=== PATIENT | male | born 1955 | race Caucasian/White ===

== ENCOUNTER 2019-08-08 22:33 | Inpatient (IN) | payer MEDICAID, SELFPAY ==
--- NOTE | ~2019-08-08 | CT_ITS ---
EXAMINATION: CT abdomen pelvis w con DATE: 08/09/2019 04:44 INDICATION: Abdominal pain. Possible pancreatitis. TECHNIQUE: Computed tomography (CT) of the abdomen and pelvis was performed with 100 cc Omnipaque 350 intravenous contrast. Automated exposure control and iterative reconstruction technique were employe d. Exam dose: 1118.59 mGy-cm total exam DLP. COMPARISON: None. FINDINGS: Normal heart size. No pericardial or pleural effusion. Moderate sliding hiatal hernia. Diffuse hepatic steatosis. The gallbladder is present. No bile duct dilatation. Normal splenic size. There are pancreatic calcifications. There is peripancreatic stranding and fluid consistent with panc reatitis. Approximately 2 cm cystic lesion at pancreatic tail is likely pancreatic pseudocyst. Normal adrenal glands. Approximately 1.6 cm upper pole left renal cyst. The kidneys are otherwise unr emarkable. No urinary tract calculus or hydroureteronephrosis. The urinary bladder is unremarkable. P rostate enlargement. There is atherosclerotic calcification of the abdominal aorta and branches including renal arteries, especially on the right, as well as iliac arteries, but no abdominal aortic aneurysm. No intraperiton eal or retroperitoneal or pelvic mass lesion or adenopathy or ascites. Normal appendix. No bowel obstruction or intraperitoneal free air. Bilateral fat-containing inguinal hernias. Mild chronic anterior wedge compression fracture deformity at T10. Diffuse idiopathic skeletal hyperostosis of the thoracic and lumbar spine. Moderately severe degenera tive disc disease at L1-2, L4-5 and L5-S1. Degenerative change at the apophyseal joints. Minimal retr olisthesis at L3-4. IMPRESSION: Acute superimposed upon chronic pancreatitis 1.6 cm left renal cyst Prostate enlargement Moderate sliding hiatal hernia 1.6 cm left renal cyst Prostate enlargement Reviewed, dictated and finalized at Location [facility]. Reviewed, dictated and finalized at location A. T LITERACY TEACHER
--- NOTE | ~2019-08-08 | XR_ITS ---
EXAMINATION: XR abdomen/kub 1V DATE: 08/12/2019 15:23 INDICATION: Abdominal pain. Abdominal distention. TECHNIQUE: A supine view of the abdomen was obtained. COMPARISON: CT abdomen and pelvis 08/09/2019 FINDINGS: There are mildly dilated loops of small bowel. There is gaseous distention of the transvers e colon. IMPRESSION: 1. Dilated bowel, consistent with adynamic ileus. Reviewed, dictated and finalized at location A. ERGARTEN TEACHER ASSISTANT
--- NOTE | ~2019-08-08 | XR_ITS ---
XR abdomen obstructive series DATE: 08/10/2019 12:17 INDICATION: Abdominal pain, distention TECHNIQUE: Supine and upright AP views COMPARISON: None FINDINGS: There is no evidence of bowel obstruction or intraperitoneal free air. The psoas shadows ar e intact. No visceromegaly is evident. There is abdominal aortic and bilateral iliac arterial calcification. Multiple bilateral calcified pe lvic phleboliths. Diffuse idiopathic skeletal hyperostosis of the thoracic spine. Multilevel degenerative disease of th e lumbar spine. IMPRESSION: Nonspecific abdomen; no bowel obstruction or free air detected Reviewed, dictated and finalized at [facility]. Reviewed, dictated and finalized at location A. [employer]
--- NOTE | ~2019-08-08 | XR_ITS ---
XR shoulder LT min 2V DATE: 08/09/2019 03:42 INDICATION: Shoulder reduction TECHNIQUE: Portable upright 2 view examination COMPARISON: 08/09/2019 left shoulder FINDINGS: There is reduction of anterior dislocation left shoulder. There is prominent Hill-Sachs def ormity of the left humeral head. Moderate moderate degenerative spurring of the left clavicular joint. Left Port-A-Cath catheter. IMPRESSION: Reduction of anterior glenohumeral joint dislocation; Hill-Sachs deformity of proximal le ft humerus Reviewed, dictated and finalized at location A. T IMPRESSION: Reduction of anterior glenohumeral joint dislocation; Hill-Sachs de formity of proximal left humerus
--- NOTE | ~2019-08-08 | XR_ITS ---
XR shoulder LT min 2V DATE: 08/09/2019 03:13 INDICATION: Left shoulder dislocation TECHNIQUE: Portable 2 view examination COMPARISON: There is a dislocation of the left FINDINGS: . There is normal alignment and moderate moderate spurring at the left acromion clavicular joint. Left Port-A-Cath is noted. IMPRESSION: Anterior glenohumeral joint dislocation Reviewed, dictated and finalized at location A. ATOR OPERATOR
--- NOTE | ~2019-08-08 | US_ITS ---
US venous doppler [facility] DATE: 08/10/2019 09:23 INDICATION: Bilateral lower extremity edema TECHNIQUE: Real-time and color flow imaging and Doppler analysis of the veins of the lower extremitie s COMPARISON: None FINDINGS: The greater saphenous veins are patent. There is spontaneous and phasic flow and normal aug mentation and color flow signal and normal compression of the deep veins of the lower extremities. IMPRESSION: No evidence of deep venous thrombosis of the lower extremities Reviewed, dictated and finalized at Location A. Reviewed, dictated and finalized at location A. OLOGIST ASSISTANT
--- NOTE | ~2019-08-08 | XR_ITS ---
EXAMINATION: XR abdomen/kub 1V DATE: 08/13/2019 13:21 INDICATION: Adynamic ileus. TECHNIQUE: A supine view of the abdomen was obtained. COMPARISON: Abdomen radiograph 08/12/2019 FINDINGS: There are no dilated loops of bowel. There is a paucity of stool in the colon. IMPRESSION: 1. Nonobstructive bowel gas pattern. Reviewed, dictated and finalized at location A. NESS OFFICE TECHNICIAN
--- NOTE | ~2019-08-08 | XR_ITS ---
XR chest 2V DATE: 08/10/2019 12:16 INDICATION: Dyspnea TECHNIQUE: PA and lateral views COMPARISON: 04/04/2010 two-view chest FINDINGS: Left subclavian Port-A-Cath, catheter tip overlying superior vena cava. No pneumothorax. Normal heart size. No hilar or mediastinal enlargement. Mild aortic calcification and unfolding. There is mild right basilar infiltrate or atelectasis, right lower lobe. The lungs are otherwise georges r. There is slight if any pleural effusion. No pneumothorax. Osteophyte is at the glenohumeral joints. Degenerative spurring of the thoracic spine. Old healed fra cture deformity of the right clavicular shaft. IMPRESSION: Minimal right basilar lower lobe atelectasis or infiltrate Left Port-A-Cath Reviewed, dictated and finalized at location A. RER PLUMBING
--- NOTE | ~2019-08-08 | US_ITS ---
US right upper quadrant DATE: 08/10/2019 09:23 INDICATION: Pancreatitis TECHNIQUE: Real-time imaging of liver, pancreas, gallbladder areas COMPARISON: 08/09/2019 CT abdomen pelvis FINDINGS: Hepatic steatosis. No hepatic space-occupying mass lesion is evident. Normal hepatic portal venous flow direction. No gallstones, gallbladder wall thickening or abnormal pericholecystic fluid collection. Negative son ographic Garcia's sign. Common bile duct measures 5 mm, within normal limits. The pancreas is obscured by bowel gas. IMPRESSION: The pancreas is obscured Hepatic steatosis Reviewed, dictated and finalized at Location [facility]. Reviewed, dictated and finalized at location A. OR ABAP DEVELOPER
[2019-08-08 22:54] VITALS: BP 138/65; PULSE 85; RESP 22; TEMP 36.4; O2SAT 100
[2019-08-08 23:02] LABS: Basophils Percent Auto 0.3 % (0.2-1.2); Eosinophils Percent Auto 0.2 % (0-4.4); Hematocrit 48.5 % (42.0-52.0); Hemoglobin 16.7 g/dL (14.0-18.0); Immature Granulocyte Absolute 0.04 K/mm3 (0.00-0.031); Immature Granulocyte Percent A 0.3 % (0-0.5); Lymphocytes Absolute Auto 1.47 K/mm3 (0.9-3.2); Lymphocytes Percent Auto 11.8 % (18.3-44.2); Mean Corpuscular HGB Conc 34.4 g/dl (32-36); Mean Corpuscular Hemoglobin 32.9 pg (26-34); Mean Corpuscular Volume 95.7 fl (80-100); Mean Platelet Volume 10.2 fl (7.4-10.4); Monocytes Absolute Auto 1.1 K/mm3 (0.1-0.6); Monocytes Percent Auto 8.4 % (2.6-8.5); Neutrophils Absolute Auto 9.9 K/mm3 (1.3-6.7); Platelet Count Result 150 k/mm3 (150-375); Red Blood Count 5.07 M/mm3 (4.6-6.20); Red Cell Distribution Width 13.2 % (11.5-14.5); White Blood Count 12.5 K/mm3 (4.5-10.0)
[2019-08-08 23:20] LABS: Alanine Aminotransferase 65 U/L (4-50); Albumin Level 4.7 g/dL (3.5-5.1); Alkaline Phosphatase 49 U/L (38-126); Aspartate Amino Transferase 54 U/L (17-59); Blood Urea Nitrogen 14 mg/dL (9-20); Calcium 9.5 mg/dL (8.4-10.2); Carbon Dioxide 24 mmol/L (22-30); Chloride 98 mmol/L (98-107); Estimated CRCL calculation 111 ml/min; Estimated Glomerular Filt Rate > 60; Glucose 120 mg/dL (75-110); Potassium 4.3 mmol/L (3.4-5.0); Sodium 136 mmol/L (137-145)
[2019-08-08 23:45] LABS: Lipase 7099 U/L (23-300)
[2019-08-09] VITALS (20 sets, daily range): BP systolic 126–164; BP diastolic 79–109; PULSE 83–127; RESP 12–24; TEMP 36.2–37.2; O2SAT 87–99; BMI 31.4
--- NOTE | 2019-08-09 | PC.NURSE ---
pt asked to void. pt states he is unable to void at this time.
--- NOTE | 2019-08-09 00:32 | ED.ABDPAIN ---
HPI - Abdominal Pain General Chief Complaint: Abdominal Pain Stated Complaint: ABD PAIN Time Seen by Provider: 08/09/19 00:37 Source: patient Mode of arrival: ambulatory Limitations: no limitations History of Present Illness HPI narrative: A 63 y/o male presents to the ED with c/o diffuse ABD pain that radiates to his midback. The ABD pain started at 1300 yesterday after he ate 2 hotdogs. Pt reports N/V, cough, CP, and sweats, but denies shoulder pain, fever, dysuria, and jaw pain. He has a PMHx of pancreatitis and adds that it was previously due to alcohol use. Pt has not drank in 2 weeks. MD elicited complaint: abdominal pain (Diffuse) Pertinent past history: other (Pancreatitis) Onset (ago): hour(s) (12) Pain Consistency: constant Location: diffuse Radiation: other (Midback) Associated symptoms: nausea, vomiting and other (Cough, CP, sweats) Related Data Allergies Allergy/AdvReac Type Severity Reaction Status Date / Time codeine Allergy Unknown Vomiting Verified 12/05/18 07:15 iodine Allergy Unknown TOPICAL. Verified 12/05/18 07:15 RASH Penicillins Allergy Unknown Verified 03/12/17 08:15 Review of Systems Review of Systems: Narrative: CONSTITUTIONAL: Denies fever, chills, or sweats. EYES: Denies visual changes, redness, or discharge. ENT: Denies rhinorrhea, congestion, sore throat, or otalgia. CARDIOVASCULAR: Denies palpitations or edema. Reports CP and sweats. RESPIRATORY: Denies dyspnea. Reports cough. GASTROINTESTINAL: Denies diarrhea. Reports diffuse ABD pain that radiates to midback, nausea, and vomiting. GENITOURINARY: Denies dysuria or hematuria. SKIN: Denies rash or itching. MUSCULOSKELETAL: Denies shoulder pain, jaw pain, joint pain, or myalgia. NEUROLOGIC: Denies headache, numbness, or weakness. All systems reviewed & are unremarkable except as noted in HPI and below PMFSH Past Medical History Medical History (Updated 08/09/19 @ 05:08 by Marisel Wolf MD) Arthritis Bronchitis CAD (coronary artery disease) Chronic back pain COPD (chronic obstructive pulmonary disease) DDD (degenerative disc disease) GERD (gastroesophageal reflux disease) History of chemotherapy Hyperlipidemia Leg fracture Lymphoma Neutropenia Pancreatitis Pneumonia Port-A-Cath in place Ulcer Surgical History Surgical History (Updated 08/09/19 @ 00:36 by Viji Ablert) History of bone marrow transplant Family History Family History Other Depression Family history of alcoholism Family history of arthritis Family history of cardiovascular disease Family history of chronic obstructive pulmonary disease Family history of genitourinary disease Family history of hearing loss Family history of hepatitis Family history of lung disease Family history of malignant neoplasm Family history of obesity Hypertension Social History Social History (Updated 08/09/19 @ 00:37 by Viji Albert) Smoking packs per day: 1.5 Smoking cigarettes per day: 30.0 Years smoked: 45 Smoking pack-years: 67.50 Smoking status: Heavy tobacco smoker Second hand tobacco smoke exposure: Yes Alcohol intake: current Exam Narrative: Exam Narrative: GENERAL: Uncomfortable-appearing, well-nourished, and in no acute distress. HEAD: Normocephalic, atraumatic. EYES: PERRLA and EOMI. ENT: Nares clear, no rhinorrhea or epistaxis. Mucous membranes moist. NECK: Supple. CHEST: Coarse breath sounds bilaterally, no tachypnea. No respiratory distress. No chest wall tenderness. HEART: Regular rate and rhythm. No murmur heard. Normal peripheral pulses. ABDOMEN: Soft, epigastric tenderness, nondistended, normal active bowel sounds. EXTREMITIES: Normal range of motion. No edema. SKIN: Warm, dry, no rash. NEURO: No focal deficits. Alert and oriented X3. Procedures Orthopedic Joint Reduction Joint #1: Orthopedic Joint Reduction Date: 08/09/19 Orthopedic Joint Reduction Time:
--- NOTE | 2019-08-09 00:54 | ECG_ITS ---
Measurements Intervals [place] Rate: 71 P: 68 CT: 157 QRS: 35 QRSD: 86 T: 79 QT: 385 QTc: 419 Interpretive Statements SINUS RHYTHM BORDERLINE ST-T WAVE ABNORMALITY- LATERAL LEADS BASELINE ARTIFACT- I, III, AVL BORDERLINE ECG Electronically Signed On 08-09-2019 7:36:26 ULTIMATE HOOPS REFEREE by Baldo Obregon D.O.
[2019-08-09] MEDS: MORPHINE SULFATE 4 MG/ML INJ IV PUSH ×6 (01:00→17:58)
[2019-08-09] MEDS: ONDANSETRON INJ 4 MG/2 ML VIAL IV PUSH ×2 (01:00→22:32)
--- NOTE | 2019-08-09 01:00 | PC.NURSE ---
pt unable to void.
[2019-08-09] MEDS: SODIUM CHLORIDE 0.9% IV 1,000 ML 999 ML IV CONT ×2 (01:01→03:47)
[2019-08-09 01:15] LABS: INR 0.9; Prothrombin Time 11.8 Seconds (11.1-14.7)
[2019-08-09 01:16] LABS: Partial Thromboplastin Time 24.7 SECONDS (22.3-36.8)
[2019-08-09 01:27] LABS: Troponin I < 0.012 ng/mL (0.000-0.034)
--- NOTE | 2019-08-09 02:30 | PC.NURSE ---
Patient giving verbal consent for procedural sedation to reduce left shoulder. Patient unable to sign due to pain, EDP Chuchoels in room when consent was given. No family in room to sign. ED charge nurse Gayla notified.
[2019-08-09] MEDS: MIDAZOLAM HCL 2 MG/2 ML VIAL (02:31)
--- NOTE | 2019-08-09 02:34 | PC.NURSE ---
Patient returned from CT with his left shoulder dislocated. Patient's shoulder dislocated while raising arms above head. Per EDP Luciano verbal order read-back, give patient 1mg Versed IVP and 50mcg Fentanyl IVP to attempt to reduce shoulder. EDP Luciano was unable to reduce shoulder. 1mg Versed and 50mcg Fentanyl wasted at this time.
--- NOTE | 2019-08-09 02:44 | PC.NURSE ---
pt down to ct had arms above his head pt yelled out and electronics technology instructor went to check on pt and pt's L shoulder was out of place. pt was moved to stretcher and returned to rm 6
[2019-08-09 05:00] LABS: Add Urine Microscopic? YES; Appearance Urine Clear (Clear); Bilirubin Urine Negative (Negative); Blood Urine Negative (Negative); Color Urine Yellow (Yellow); Glucose Urine UA Negative (Negative); Ketones Urine 1+ mg/dL (Negative); Leukocyte Esterase Ur Negative LEU/UL (Negative); Mucus Urine Rare /lpf; Nitrate Urine Negative (Negative); Protein Urine Negative (Negative); RBC Urine 0-2 /hpf (0-2); Specific Grav Ur 1.024 (1.001-1.035); Urobilinogen Urine Negative mg/dL (<2.0)
--- NOTE | 2019-08-09 06:00 | ADMGEN ---
This patient, Kwesi Pham, was admitted to Medical Room 346-01. Patient/family oriented to hospital policies and general routines including ID bracelet, bed and alarms, visiting hours, pain management, procedures, bathroom and other care routines, personal items, smoking policy, room service/diet, and visiting hours. Valuables list has been completed. Information on how to activate the Rapid Response Team has been discussed. Patient/Family are encouraged to report perceived risks to care and to ask questions if they do not understand what they are told or what they should do.
[2019-08-09] MEDS: LACTATED RINGERS 1,000 ML 125 ML IV CONT ×2 (06:41→14:31)
[2019-08-09] MEDS: PANTOPRAZOLE SODIUM IV 40 MG VIAL IV PUSH (08:18)
[2019-08-09 08:42] LABS: Troponin I < 0.012 ng/mL (0.000-0.034)
[2019-08-09 10:10] LABS: Cholesterol 267 mg/dL (0-200); HDL Direct 54 mg/dL; Triglycerides 179 mg/dL (<150)
[2019-08-09 10:21] LABS: LDL Cholesterol Direct 214 mg/dL
[2019-08-09 12:18] LABS: Glucose Point of Care 104 (65-105)
[2019-08-09 15:59] LABS: Basophils Percent Auto 0.3 % (0.2-1.2); Eosinophils Absolute Auto 0.2 K/mm3 (0-0.3); Eosinophils Percent Auto 1.6 % (0-4.4); Hematocrit 44.5 % (42.0-52.0); Immature Granulocyte Absolute 0.04 K/mm3 (0.00-0.031); Immature Granulocyte Percent A 0.3 % (0-0.5); Lymphocytes Absolute Auto 1.56 K/mm3 (0.9-3.2); Lymphocytes Percent Auto 11.4 % (18.3-44.2); Mean Corpuscular HGB Conc 33.7 g/dl (32-36); Mean Corpuscular Hemoglobin 32.9 pg (26-34); Mean Corpuscular Volume 97.6 fl (80-100); Monocytes Absolute Auto 0.7 K/mm3 (0.1-0.6); Monocytes Percent Auto 5.4 % (2.6-8.5); Neutrophils Absolute Auto 11.1 K/mm3 (1.3-6.7); Red Blood Count 4.56 M/mm3 (4.6-6.20); Red Cell Distribution Width 13.8 % (11.5-14.5); White Blood Count 13.7 K/mm3 (4.5-10.0)
[2019-08-09 16:05] LABS: Hemoglobin A1C 5.7 % (<5.7)
[2019-08-09 16:08] LABS: Magnesium 2.2 mg/dL (1.6-2.3)
[2019-08-09 16:09] LABS: Alanine Aminotransferase 43 U/L (4-50); Albumin Level 3.6 g/dL (3.5-5.1); Alkaline Phosphatase 37 U/L (38-126); Aspartate Amino Transferase 35 U/L (17-59); Bilirubin,Total 0.7 mg/dL (0.2-1.3); Blood Urea Nitrogen 12 mg/dL (9-20); Calcium 8.1 mg/dL (8.4-10.2); Carbon Dioxide 23 mmol/L (22-30); Chloride 103 mmol/L (98-107); Estimated CRCL calculation 98 ml/min; Estimated Glomerular Filt Rate > 60; Glucose 94 mg/dL (75-110); Potassium 4.1 mmol/L (3.4-5.0); Sodium 136 mmol/L (137-145)
[2019-08-09 17:58] LABS: Glucose Point of Care 97 (65-105)
--- NOTE | 2019-08-09 18:03 | PM.IMHP ---
H&P: HPI History of Present Illness Chief complaint: Pancreatitis <Cecilia Hooker PA-C - Last Filed: 08/09/19 18:40> Narrative: Kwesi Pham is a 63 year old male with past medical history significant for COPD, Hodgkin's lymphoma s/p bone marrow transplant on Gamunex infusion q6 weeks, hyperlipidemia, coronary artery disease, gastroesophageal reflux disease, current 1.5-2PPD smoker, and history of alcoholism complicated by pancreatitis 5 years ago who presented to the emergency department with a chief complaint of diffuse abdominal pain radiating to the mid back. He reports that he has not consumed any alcohol for approximately 1 month. He endorses a history of anorexia for 3 days. He did not eat much and reports that on Sunday, he ate 2 hot dogs as well as candy. Soon after eating, he reports that he vomited 4 times. He denies fever, chills, and SOB. He endorses diarrhea. He denies prior history of gallbladder disease. He denies prior abdominal pain before this acute episode. Upon presentation to the emergency department, temperature was 97.6? F, blood pressure was 138/65, heart rate was 85, respiratory rate was 22, and oxygen saturation was 100. Initial workup revealed lipase of 7,099, AST of 54, elevated ALT of 65, bilirubin of 1.0, and calcium of 9.5. EKG was performed and showed no acute ischemic changes. Serial troponins were unremarkable. CT abdomen and pelvis with contrast was performed and revealed moderate sliding hiatal hernia, hepatic steatosis, gallbladder without bile duct dilatation, pancreatic calcifications and peripancreatic stranding and fluid consistent with pancreatitis, 2 cm cystic lesion at the pancreatic tail representing a pancreatic pseudocyst, 1.6 cm left renal cyst, prostate enlargement inguinal hernias bilaterally, and degenerative disc disease. While in the CT scanner, the patient lifted his left arm and dislocated his left shoulder posteriorly. He has a history of 7 prior left shoulder dislocation and 2 rotator cuff surgeries. His shoulder was reduced while under sedation in the ED with post-reduction films showing good reduction. His initial workup is consistent with acute on chronic pancreatitis. he received 2 L of normal saline fluid bolus in the emergency department. He was admitted to the hospitalist service for IV fluid hydration, IV anti emetics, and IV analgesics. <Cecilia Hooker PA-C - Last Filed: 08/09/19 18:40> Review of Systems Constitutional: Constitutional: Reports anorexia, Denies body ache(s), Denies chills, Denies fatigue and Denies fever(s) <LEIA Bar Last Filed: 08/09/19 18:40> Eyes: Eyes: Denies no additional eye complaints and Denies change in vision <LEIA Bar Last Filed: 08/09/19 18:40> ENT: Reports Normal hearing present, Denies dysphagia, Denies hoarseness, Denies odynophagia and Denies sore throat <LEIA Bar Last Filed: 08/09/19 18:40> Cardiovascular: Comments: The patient endorses a history of chest pain with activity for several years. He reports episodes of chest pain occur 2-3 times per week. He endorses that he has not told his PCP about this. He describes the pain as heavy. He does not complain of active chest pain at this time. He reports that his last stress test was several years ago. He denies any previous hx of OK or coronary artery stenting. He endorses that he did not know he had a history of coronary artery disease. He previously attributed the pain to a pleuritic source due to his coughing from COPD. <LEIA Bar Last Filed: 08/09/19 18:40> Respiratory: Respiratory: Reports cough, Denies dyspnea and Denies wheezing <LEIA Bar Last Filed: 08/09/19 18:40> Gastrointestinal: Gastrointestinal: Reports abdominal pain (Diffuse, chaitanya umbilical and epigastric which radiates into the back), Denies melena, Reports bloating, Denies hematochezia and Reports diarrhea <Cecilia Joy
--- NOTE | 2019-08-09 18:56 | PM.IMHP ---
H&P: HPI History of Present Illness Chief complaint: Pancreatitis <Cecilia Hooker PA-C - Last Filed: 08/09/19 22:04> Narrative: Kwesi Pham is a 63 year old male with past medical history significant for COPD, Hodgkin's lymphoma s/p bone marrow transplant on Gamunex infusion q6 weeks, hyperlipidemia, coronary artery disease, gastroesophageal reflux disease, current 1.5-2PPD smoker, and history of alcoholism complicated by pancreatitis 5 years ago who presented to the emergency department with a chief complaint of diffuse abdominal pain radiating to the mid back. He reports that he has not consumed any alcohol for approximately 1 month. He endorses a history of anorexia for 3 days. He did not eat much and reports that on Sunday, he ate 2 hot dogs as well as candy. Soon after eating, he reports that he vomited 4 times. He denies fever, chills, and SOB. He endorses diarrhea. He denies prior history of gallbladder disease. He denies prior abdominal pain before this acute episode. Upon presentation to the emergency department, temperature was 97.6? F, blood pressure was 138/65, heart rate was 85, respiratory rate was 22, and oxygen saturation was 100. Initial workup revealed lipase of 7,099, AST of 54, elevated ALT of 65, bilirubin of 1.0, and calcium of 9.5. EKG was performed and showed no acute ischemic changes. Serial troponins were unremarkable. CT abdomen and pelvis with contrast was performed and revealed moderate sliding hiatal hernia, hepatic steatosis, gallbladder without bile duct dilatation, pancreatic calcifications and peripancreatic stranding and fluid consistent with pancreatitis, 2 cm cystic lesion at the pancreatic tail representing a pancreatic pseudocyst, 1.6 cm left renal cyst, prostate enlargement inguinal hernias bilaterally, and degenerative disc disease. While in the CT scanner, the patient lifted his left arm and dislocated his left shoulder posteriorly. He has a history of 7 prior left shoulder dislocation and 2 rotator cuff surgeries. His shoulder was reduced while under sedation in the ED with post-reduction films showing good reduction. His initial workup is consistent with acute on chronic pancreatitis. he received 2 L of normal saline fluid bolus in the emergency department. He was admitted to the hospitalist service for IV fluid hydration, IV anti emetics, and IV analgesics. <Cecilia Hooker PA-C - Last Filed: 08/09/19 22:04> Review of Systems Constitutional: Constitutional: Reports anorexia, Denies body ache(s), Denies chills, Denies fatigue and Denies fever(s) <Cecilia Hooker PA-C - Last Filed: 08/09/19 22:04> Eyes: Eyes: Denies no additional eye complaints and Denies change in vision <Cecilia Hooker PA-C - Last Filed: 08/09/19 22:04> ENT: Reports Normal hearing present, Denies dysphagia, Denies hoarseness, Denies odynophagia and Denies sore throat <Cecilia Hooker PA-C - Last Filed: 08/09/19 22:04> Cardiovascular: Cardiovascular: Reports chest pain with activity (2-3x per week, no pain currrently ), Denies dyspnea and Reports other (He also complains of orthopnea, paroxysmal nocturnal dyspnea, and LE edema) <Cecilia Hooker PA-C - Last Filed: 08/09/19 22:04> Comments: Comments: The patient endorses a history of chest pain with activity for several years. He reports episodes of chest pain occur 2-3 times per week. He endorses that he has not told his PCP about this. He describes the pain as heavy. He does not complain of active chest pain at this time. He reports that his last stress test was several years ago. He denies any previous hx of OK or coronary artery stenting. He endorses that he did not know he had a history of coronary artery disease. He previously attributed the pain to a pleuritic source due to his coughing from COPD. <Cecilia Hooker PA-C - Last Filed: 08/09/19 22:04> Respiratory: Respiratory: Reports cough, Denies dyspnea and Denies wheezing <Cecilia Espinoza
[2019-08-10] MEDS: LACTATED RINGERS 1,000 ML 85 ML IV CONT ×2 (00:38→13:00)
[2019-08-10 01:35] LABS: Glucose Point of Care 79 (65-105)
[2019-08-10 04:00] VITALS: BP 119/79; PULSE 81; RESP 14; TEMP 36.3; O2SAT 94
[2019-08-10] MEDS: MORPHINE SULFATE 4 MG/ML INJ IV PUSH ×6 (05:09→22:34)
--- NOTE | 2019-08-10 06:00 | ECG_ITS ---
Measurements Intervals [place] Rate: 94 P: 55 AR: 148 QRS: 20 QRSD: 80 T: 68 QT: 350 QTc: 438 Interpretive Statements SINUS RHYTHM BORDERLINE ST-T WAVE ABNORMALITY- LATERAL LEADS BORDERLINE ECG Electronically Signed On 08-10-2019 8:16:13 YARD ASSOCIATE by Baldo Obregon D.O.
[2019-08-10 06:14] LABS: Basophils Percent Auto 0.3 % (0.2-1.2); Eosinophils Absolute Auto 0.4 K/mm3 (0-0.3); Eosinophils Percent Auto 3.3 % (0-4.4); Hematocrit 43.4 % (42.0-52.0); Hemoglobin 14.2 g/dL (14.0-18.0); Immature Granulocyte Absolute 0.04 K/mm3 (0.00-0.031); Immature Granulocyte Percent A 0.3 % (0-0.5); Lymphocytes Absolute Auto 1.59 K/mm3 (0.9-3.2); Lymphocytes Percent Auto 12.3 % (18.3-44.2); Mean Corpuscular HGB Conc 32.7 g/dl (32-36); Mean Corpuscular Hemoglobin 32.7 pg (26-34); Mean Platelet Volume 10.8 fl (7.4-10.4); Monocytes Absolute Auto 0.8 K/mm3 (0.1-0.6); Monocytes Percent Auto 5.9 % (2.6-8.5); Neutrophils Absolute Auto 10.1 K/mm3 (1.3-6.7); Neutrophils Percent Auto 77.9 % (45.5-73.1); Platelet Count Result 113 k/mm3 (150-375); Red Blood Count 4.34 M/mm3 (4.6-6.20); Red Cell Distribution Width 13.9 % (11.5-14.5); White Blood Count 12.9 K/mm3 (4.5-10.0)
[2019-08-10 06:55] LABS: Hepatitis B Surface Antigen Negative (Negative)
[2019-08-10 07:03] LABS: Glucose Point of Care 81 (65-105)
[2019-08-10 07:16] LABS: Hepatitis B Surface Anti Res Positive; Hepatitis C Virus Antibody Negative (Negative)
[2019-08-10 08:05] LABS: Glucose Point of Care 82 (65-105)
[2019-08-10 08:06] VITALS: PULSE 84; RESP 14; O2SAT 94
[2019-08-10] MEDS: ENOXAPARIN 40 MG/0.4 ML SYRINGE SUB-Q (08:06)
[2019-08-10] MEDS: NEOMYCIN/POLYMYXIN/BACITRACIN OINTMENT 15 GM TUBE 1 APPLIC TOPICAL (08:08)
[2019-08-10] MEDS: PANTOPRAZOLE SODIUM IV 40 MG VIAL IV PUSH (08:08)
[2019-08-10 08:59] LABS: Alanine Aminotransferase 34 U/L (4-50); Albumin Level 3.3 g/dL (3.5-5.1); Alkaline Phosphatase 36 U/L (38-126); Aspartate Amino Transferase 33 U/L (17-59); Bilirubin,Total 0.7 mg/dL (0.2-1.3); Blood Urea Nitrogen 12 mg/dL (9-20); CRP 1.4 mg/dL (<1.0); Calcium 7.8 mg/dL (8.4-10.2); Carbon Dioxide 23 mmol/L (22-30); Chloride 102 mmol/L (98-107); Estimated CRCL calculation 98 ml/min; Estimated Glomerular Filt Rate > 60; Glucose 77 mg/dL (75-110); Lipase 1180 U/L (23-300); Potassium 4.1 mmol/L (3.4-5.0); Sodium 136 mmol/L (137-145)
--- NOTE | 2019-08-10 11:38 | ECG_ITS ---
Measurements Intervals [place] Rate: 82 P: 58 [place]: 150 QRS: 28 QRSD: 86 T: 75 QT: 359 QTc: 421 Interpretive Statements SINUS RHYTHM NORMAL ECG Electronically Signed On 08-10-2019 16:36:04 LINEN CHECKER by Baldo Obregon D.O.
[2019-08-10 12:29] LABS: Troponin I < 0.012 ng/mL (0.000-0.034)
[2019-08-10 13:06] LABS: Glucose Point of Care 76 (65-105)
--- NOTE | 2019-08-10 13:25 | PM.IMPN ---
Progress Note: A&P Assessment and Plan (1) Acute pancreatitis: Qualifiers: Acute pancreatitis complication: no infection or necrosis Pancreatitis type: idiopathic Qualified Code(s): K85.00 - Idiopathic acute pancreatitis without necrosis or infection <Cecilia Hooker PA-C - Last Filed: 08/10/19 14:57> Code(s): K85.90 - Acute pancreatitis without necrosis or infection, unspecified <Cecilia Hooker PA-C - Last Filed: 08/10/19 14:57> Status: Acute <Cecilia Hooker PA-C - Last Filed: 08/10/19 14:57> Assessment and Plan: Etiology is unknown. Likely acute on chronic pancreatitis due to prior hx of pancreatitis 5 years ago (during period of heavy alcohol use - pt endorses 1 fifth) and presence of pancreatic pseudocyst.There was no evidence of hypertriglyceridemia. Ca was WNL at admission. US RUQ negative for gallstones, gallbladder wall thickening, and pericholecystic fluid collection. Common bile duct is WNL. Pt has a very poor diet including hamburgers and hot dogs recently so it is still possible that he passed a gallstone. Lipase is trending down and is 1180 today (7099 at admit). The pt's epigastric/periumbilical pain has improved minimally but he now c/o lower abdominal pain. He is very distended and denies flatus, belching, and BM. -Continue NPO. Monitor blood sugar Q4HR since pt is NPO. -Continue fluid replacement. Reassess fluid requirements. -Continue IV morphine for pain control I discussed the importance of continued alcohol abstinence and encouraged the patient. <Cecilia Hooker PA-C - Last Filed: 08/10/19 14:57> (2) Dislocation of shoulder: Qualifiers: Encounter type: initial encounter Laterality: left Qualified Code(s): S43.005A - Unspecified dislocation of left shoulder joint, initial encounter <Cecilia Hooker PA-C - Last Filed: 08/10/19 14:57> Code(s): S43.006A - Unspecified dislocation of unspecified shoulder joint, initial encounter <Cecilia Hooker PA-C - Last Filed: 08/10/19 14:57> Status: Acute <Cecilia Krystle Hooker PA-C - Last Filed: 08/10/19 14:57> Assessment and Plan: The patient is status post reduction of his left shoulder. Follow-up imaging after reduction showed appropriate positioning of the anterior glenohumeral joint. He was noted to have a Hill-Sachs deformity of the prominent left humerus. Neurovascular status is intact to the left hand. -Follow-up with orthopedic surgery outpatient -Maintain adequate pain control <Cecilia Hooker PA-C - Last Filed: 08/10/19 14:57> (3) Lymphoma: Code(s): C85.90 - Non-Hodgkin lymphoma, unspecified, unspecified site <Cecilia Hooker PA-C - Last Filed: 08/10/19 14:57> Status: Acute <Cecilia Hooker PA-C - Last Filed: 08/10/19 14:57> Assessment and Plan: The patient reports a history of Hodgkin's lymphoma. He is status post bone marrow transplant. He is currently receiving Gamunex every 6 weeks. He follows with oncology regularly. He was last seen by Dr. Torres in 2019. -Continue scheduled follow-up with oncology <Cecilia Hooker PA-C - Last Filed: 08/10/19 14:57> (4) Hyperlipidemia: Code(s): E78.5 - Hyperlipidemia, unspecified <Cecilia Hooker PA-C - Last Filed: 08/10/19 14:57> Status: Acute <Cecilia Hooker PA-C - Last Filed: 08/10/19 14:57> Assessment and Plan: The patient self elected to discontinue his atorvastatin this July. His LDL is elevated at 214. His triglycerides are slightly elevated at 179 but it is unlikely that this elevation is directly responsible for his current episode of acute pancreatitis. ALT was slightly elevated at 65. Due to his atherosclerotic vascular disease and continued risk factors including tobacco use, he will benefit from a statin once his acute episode of pancreatitis has resolved. -Pt
[2019-08-10] MEDS: BISACODYL 10 MG SUPPOSITORY RECTAL (13:56)
[2019-08-10 14:00] VITALS: BP 116/74; PULSE 80; PULSE 83; RESP 16; RESP 20; TEMP 36.7; O2SAT 100
[2019-08-10] MEDS: ALBUTEROL SULFATE NEB 2.5 MG/0.5 ML INH INHALATION (14:03)
[2019-08-10] MEDS: IPRATROPIUM BR 0.02% INH SOLN 0.5 MG/2.5 ML VIAL INHALATION (14:03)
[2019-08-10 14:10] VITALS: PULSE 85; RESP 20
[2019-08-10 16:56] LABS: Glucose Point of Care 72 (65-105)
[2019-08-10 18:06] LABS: Glucose Point of Care 88 (65-105)
[2019-08-10 20:00] VITALS: BP 125/82; PULSE 88; RESP 18; TEMP 36.8; O2SAT 95
[2019-08-10 22:41] LABS: Glucose Point of Care 81 (65-105)
[2019-08-11] VITALS: BP 117/67; PULSE 76; RESP 16; TEMP 36.6; O2SAT 94
--- NOTE | 2019-08-11 | ECHO_ITS ---
Patient Info Name: Kwesi Pham Age: 63 years : 1955 Gender: Male Ht: 66 in Wt: 195 lbs BSA: 2.06 m2 HR: 71 bpm BP: 110 / 71 mmHg Heart Rhythm: Sinus Rhythm Technical Quality: Good Exam Date: 08/11/2019 10:30 AM Exam Location: [facility] Exam Room: [facility] Patient Status: Inpatient Admit Date: 08/09/2019 Staff Ordering Physician: Cecilia Hooker PA-C Field Care Manager: Abigail Chaves RDCS Attending Provider: Berhane Arnold MD Referring Physician: Nhung RONQUILLO; Exam Type: CA echo doppler color flow Study Info Indications - orthopnea garcia edema Complete two-dimensional, color flow and Doppler transthoracic echocardiogram is performed. Summary 1. Left ventricular systolic function is normal, estimated at 65-70%. 2. There is no increased left ventricular wall thickness. 3. The left ventricular diastolic function is grade I diastolic dysfunction. 4. There is no aortic valve stenosis. 5. There is trace mitral valve regurgitation. 6. The mitral valve annulus is mildly calcified. 7. There is mild tricuspid valve regurgitation. 8. Pulmonary pressures upper limits of normal with estimated pulmonary arterial systolic pressure of 35 mmHg. Left Ventricle Left ventricular chamber dimension is normal. Left ventricular systolic function is normal, estimated at 65-70%. There is no increased left ventricular wall thickness. The left ventricular diastolic function is grade I diastolic dysfunction. Right Ventricle Right ventricular chamber dimension is normal. Right ventricular systolic function is normal. Left Atria Left atrial chamber dimension is normal. Right Atria Right atrial chamber dimension is normal. Aortic Valve The aortic valve is not well visualized. There is mild aortic valve sclerosis. There is no aortic valve stenosis. There is no aortic valve regurgitation. Pulmonic Valve The pulmonic valve is not well visualized. Mitral Valve The mitral valve has normal leaflets. There is trace mitral valve regurgitation. The mitral valve annulus is mildly calcified. Tricuspid Valve The tricuspid valve leaflets are normal. There is mild tricuspid valve regurgitation. Pulmonary pressures upper limits of normal with estimated pulmonary arterial systolic pressure of 35 mmHg. Pericardium/Pleural The pericardium appears normal. There is no pericardial effusion. Inferior Vena Cava Normal inferior vena cava with >50% collapse upon inspiration consistent with normal right atrial pressure, 5 mmHg. Aorta The aortic root size at the sinus of Valsalva is normal. There is mild aortic atherosclerosis. Left Ventricular Outflow Tract Name Value Normal LVOT 2D LVOT Diameter 2.0 cm LVOT Doppler LVOT Peak Gradient 7 mmHg LVOT Mean Gradient 4 mmHg LVOT VTI 23 cm LVOT VTI/AV VTI Ratio 0.8 LVOT Stroke Volume 73 ml LVOT CO 15.9 l/min LVOT CI 7.7 l/m
[2019-08-11 00:07] LABS: Glucose Point of Care 77 (65-105)
[2019-08-11] MEDS: LACTATED RINGERS 1,000 ML 85 ML IV CONT (00:09)
[2019-08-11] MEDS: MORPHINE SULFATE 4 MG/ML INJ IV PUSH ×7 (02:14→23:35)
[2019-08-11 04:00] VITALS: BP 110/71; PULSE 71; RESP 16; TEMP 36.6; O2SAT 94
[2019-08-11 04:21] LABS: Glucose Point of Care 84 (65-105)
[2019-08-11 05:21] LABS: Basophils Percent Auto 0.3 % (0.2-1.2); Eosinophils Absolute Auto 0.5 K/mm3 (0-0.3); Hematocrit 38.5 % (42.0-52.0); Immature Granulocyte Absolute 0.06 K/mm3 (0.00-0.031); Immature Granulocyte Percent A 0.5 % (0-0.5); Immature Platelet Fraction Pct 4.3 % (0.9-11.2); Lymphocytes Absolute Auto 1.57 K/mm3 (0.9-3.2); Lymphocytes Percent Auto 13.5 % (18.3-44.2); Mean Corpuscular HGB Conc 33.8 g/dl (32-36); Mean Corpuscular Hemoglobin 33.4 pg (26-34); Mean Platelet Volume 10.3 fl (7.4-10.4); Monocytes Percent Auto 8.5 % (2.6-8.5); Neutrophils Absolute Auto 8.5 K/mm3 (1.3-6.7); Neutrophils Percent Auto 73.2 % (45.5-73.1); Platelet Count Result 105 k/mm3 (150-375); Red Blood Count 3.89 M/mm3 (4.6-6.20); White Blood Count 11.7 K/mm3 (4.5-10.0)
[2019-08-11 05:43] LABS: Lipase 392 U/L (23-300)
[2019-08-11 05:44] LABS: Alanine Aminotransferase 26 U/L (4-50); Albumin Level 3.2 g/dL (3.5-5.1); Alkaline Phosphatase 31 U/L (38-126); Aspartate Amino Transferase 30 U/L (17-59); Bilirubin,Total 0.8 mg/dL (0.2-1.3); Blood Urea Nitrogen 11 mg/dL (9-20); Calcium 7.8 mg/dL (8.4-10.2); Carbon Dioxide 27 mmol/L (22-30); Chloride 102 mmol/L (98-107); Estimated CRCL calculation 98 ml/min; Estimated Glomerular Filt Rate > 60; Glucose 77 mg/dL (75-110); Potassium 3.9 mmol/L (3.4-5.0); Sodium 137 mmol/L (137-145)
[2019-08-11] MEDS: PANTOPRAZOLE SODIUM IV 40 MG VIAL IV PUSH (08:26)
[2019-08-11] MEDS: NEOMYCIN/POLYMYXIN/BACITRACIN OINTMENT 15 GM TUBE 1 APPLIC TOPICAL (08:33)
[2019-08-11] MEDS: BISACODYL 10 MG SUPPOSITORY RECTAL (08:33)
[2019-08-11] MEDS: ENOXAPARIN 40 MG/0.4 ML SYRINGE SUB-Q (08:33)
[2019-08-11 08:43] LABS: Glucose Point of Care 83 (65-105)
[2019-08-11 12:00] VITALS: BP 112/62; PULSE 68; RESP 18; TEMP 36.9; O2SAT 98
[2019-08-11 12:26] LABS: Glucose Point of Care 82 (65-105)
--- NOTE | 2019-08-11 12:59 | PM.IMPN ---
Progress Note: A&P Assessment and Plan (1) Acute pancreatitis: Qualifiers: Acute pancreatitis complication: no infection or necrosis Pancreatitis type: idiopathic Qualified Code(s): K85.00 - Idiopathic acute pancreatitis without necrosis or infection Code(s): K85.90 - Acute pancreatitis without necrosis or infection, unspecified Status: Acute Assessment and Plan: Etiology unclear but likely acute on chronic pancreatitis due to prior hx of pancreatitis and presence of pancreatic pseudocyst. TG level 179 but not related to the pancreatitis. RUQ US negative for gallstones, gallbladder wall thickening, and pericholecystic fluid collection. Common bile duct is WNL. Pt has a very poor diet including hamburgers and hot dogs recently so it is still possible that he passed a gallstone. Lipase 7100 on admission but trending down to 392 today. Patient hungry so will start full liquid diet and advance as he tolerates. (2) Ileus: Code(s): K56.7 - Ileus, unspecified Status: Acute Assessment and Plan: Pt exhibits increased abdominal distention. NGT attempted but unsuccessful. Suppository with +BMs. Passing faltus. He has been encouraged multiple times to be up waling in the alfonso. Contineu to monitor. (3) Dislocation of shoulder: Qualifiers: Encounter type: initial encounter Laterality: left Qualified Code(s): S43.005A - Unspecified dislocation of left shoulder joint, initial encounter Code(s): S43.006A - Unspecified dislocation of unspecified shoulder joint, initial encounter Status: Acute Assessment and Plan: Patient developed a nontraumatic Hill-Sachs deformity of the prominent left humerus when in the CT scanner. The patient is status post reduction of his left shoulder. Follow-up imaging after reduction showed appropriate positioning of the anterior glenohumeral joint. He remains neurovascular status is intact to the left hand. Follow-up with orthopedic surgery outpatient (4) Lymphoma: Code(s): C85.90 - Non-Hodgkin lymphoma, unspecified, unspecified site Status: Acute Assessment and Plan: The patient has a history of Hodgkin's lymphoma s/p autologous BMT. He takes Gamunex every 6 weeks and follows with oncology regularly. He was last seen by Dr. Torres in 2019. Follow-up with oncology. (5) Hyperlipidemia: Code(s): E78.5 - Hyperlipidemia, unspecified Status: Acute Assessment and Plan: The patient self elected to discontinue his atorvastatin this July. His LDL is elevated at 214. His triglycerides are slightly elevated at 179 but it is unlikely that this elevation is directly responsible for his current episode of acute pancreatitis. ALT was slightly elevated at 65. Due to his atherosclerotic vascular disease and continued risk factors including tobacco use, he will benefit from a statin once his acute episode of pancreatitis has resolved. Will see how he does with oral intake. If okay, then resume statin tomorrow. (6) GERD (gastroesophageal reflux disease): Code(s): K21.9 - Gastro-esophageal reflux disease without esophagitis Status: Acute Assessment and Plan: Stable. Contnue PPI. (7) COPD (chronic obstructive pulmonary disease): Code(s): J44.9 - Chronic obstructive pulmonary disease, unspecified Status: Acute Assessment and Plan: Not in acute exacerbation but has chronic cough. CXR was performed due to cough and mild dyspnea and shows mild right lobe airspace disease due to atelectasis since he has been taking very shallow breaths due to his abdominal discomfort. Still having some wheezing. Continue PRN albuterol. He is compliant with using the IS. (8) CAD (coronary artery disease): Code(s): I25.10 - Atherosclerotic heart disease of [place] coronary artery without angina pectoris Status: Acute Assessment and Plan
[2019-08-11 14:00] VITALS: BP 118/72; PULSE 91; RESP 16; TEMP 36.6; O2SAT 98
[2019-08-11 16:00] VITALS: BP 126/62; PULSE 68; RESP 16; TEMP 36.8; O2SAT 97
[2019-08-11 20:40] VITALS: BP 127/87; PULSE 94; RESP 16; TEMP 36.6; O2SAT 96
[2019-08-11] MEDS: ONDANSETRON INJ 4 MG/2 ML VIAL IV PUSH (20:42)
[2019-08-12] MEDS: MORPHINE SULFATE 4 MG/ML INJ IV PUSH ×7 (02:45→20:12)
[2019-08-12 04:00] VITALS: BP 137/81; PULSE 87; RESP 15; TEMP 36.3; O2SAT 92
[2019-08-12 06:07] LABS: Hematocrit 40.9 % (42.0-52.0); Hemoglobin 13.8 g/dL (14.0-18.0); Immature Platelet Fraction Pct 5.8 % (0.9-11.2); Mean Corpuscular HGB Conc 33.7 g/dl (32-36); Mean Corpuscular Hemoglobin 33.3 pg (26-34); Mean Corpuscular Volume 98.8 fl (80-100); Mean Platelet Volume 10.6 fl (7.4-10.4); Platelet Count Result 103 k/mm3 (150-375); Red Blood Count 4.14 M/mm3 (4.6-6.20); Red Cell Distribution Width 13.8 % (11.5-14.5)
[2019-08-12 06:27] LABS: Blood Urea Nitrogen 9 mg/dL (9-20); Calcium 8.3 mg/dL (8.4-10.2); Carbon Dioxide 24 mmol/L (22-30); Chloride 99 mmol/L (98-107); Estimated CRCL calculation 98 ml/min; Estimated Glomerular Filt Rate > 60; Glucose 93 mg/dL (75-110); Lipase 136 U/L (23-300); Potassium 3.8 mmol/L (3.4-5.0); Sodium 137 mmol/L (137-145)
[2019-08-12] MEDS: ENOXAPARIN 40 MG/0.4 ML SYRINGE SUB-Q (08:36)
[2019-08-12] MEDS: BISACODYL 10 MG SUPPOSITORY RECTAL (08:36)
[2019-08-12] MEDS: PANTOPRAZOLE SODIUM IV 40 MG VIAL IV PUSH (08:36)
[2019-08-12] MEDS: NEOMYCIN/POLYMYXIN/BACITRACIN OINTMENT 15 GM TUBE 1 APPLIC TOPICAL (08:36)
[2019-08-12 12:58] VITALS: BP 119/71; PULSE 80; RESP 18; TEMP 36.9; O2SAT 93
--- NOTE | 2019-08-12 15:05 | PM.IMPN ---
Progress Note: A&P Assessment and Plan (1) Acute pancreatitis: Qualifiers: Acute pancreatitis complication: no infection or necrosis Pancreatitis type: idiopathic Qualified Code(s): K85.00 - Idiopathic acute pancreatitis without necrosis or infection Code(s): K85.90 - Acute pancreatitis without necrosis or infection, unspecified Status: Acute Assessment and Plan: The CT abdomen/pelvis on admission with acute on chronic pancreatitis. RUQ ultrasound with hepatic steatosis. LFTs have now normalized. Lipase is now normal at 136. Triglycerides 179. Will leave patient on full liquids today as he is still having pain from ileus. Will try to limit narcotic use. (2) Pancreatic pseudocyst: Code(s): K86.3 - Pseudocyst of pancreas Status: Acute Assessment and Plan: A 2cm pancreatic pseudocyst was identified at the tail of the pancreas. Probably related to his prior episode of chronic pancreatitis and likely a chronic finding. Treatment of acute on chronic pancreatitis as noted above. (3) Ileus: Code(s): K56.7 - Ileus, unspecified Status: Acute Assessment and Plan: Increased abdominal distention today. Repeat KUB consistent with ileus. Has been on suppositories without relief. Soapsuds enema given without much results. Will spread out IV morphine as may be contributing. Will continue to monitor. Ambulation encouraged. (4) Dislocation of shoulder: Qualifiers: Encounter type: initial encounter Laterality: left Qualified Code(s): S43.005A - Unspecified dislocation of left shoulder joint, initial encounter Code(s): S43.006A - Unspecified dislocation of unspecified shoulder joint, initial encounter Status: Acute Assessment and Plan: Patient developed a nontraumatic Hill-Sachs deformity of the prominent left humerus when in the CT scanner. The patient is status post reduction of his left shoulder. Follow-up imaging after reduction showed appropriate positioning of the anterior glenohumeral joint. Stable at this point. Can follow-up with orthopedic surgery as an outpatient. (5) GERD (gastroesophageal reflux disease): Qualifiers: Esophagitis presence: esophagitis presence not specified Qualified Code(s): K21.9 - Gastro-esophageal reflux disease without esophagitis Code(s): K21.9 - Gastro-esophageal reflux disease without esophagitis Status: Acute Assessment and Plan: Stable. Continue Protonix. (6) CAD (coronary artery disease): Qualifiers: Coronary Disease-Associated Artery/Lesion type: [place] artery [place] vs. transplanted heart: [place] heart Associated angina: without angina Qualified Code(s): I25.10 - Atherosclerotic heart disease of [place] coronary artery without angina pectoris Code(s): I25.10 - Atherosclerotic heart disease of [place] coronary artery without angina pectoris Status: Acute Assessment and Plan: No present chest pain although reported history of chest pain 2-3 times per week with activity worse with deep inspiration to admitting provider. Echocardiogram currently with EF 65-70% and diastolic dysfunction grade 1. Will monitor clinically. (7) Hyperlipidemia: Qualifiers: Hyperlipidemia type: unspecified Qualified Code(s): E78.5 - Hyperlipidemia, unspecified Code(s): E78.5 - Hyperlipidemia, unspecified Status: Acute Assessment and Plan: Previously stopped atorvastatin. Total cholesterol 267 with LDL 214 and HDL 54. If willing, would benefit from restarting atorvastatin. (8) Lymphoma: Qualifiers: Lymphoma type: Hodgkin Hodgkin lymphoma type: unspecified type Lymphoma site: unspecified region Qualified Code(s): C81.90 - Hodgkin lymphoma, unspecified, unspecified site Code(s): C85.90 - Non-Hodgkin lymphoma, unspecified, unspecified site Status: Acute Assessment and Plan:
[2019-08-12 21:51] VITALS: BP 127/76; PULSE 88; RESP 16; TEMP 36.5; O2SAT 93
[2019-08-13] MEDS: MORPHINE SULFATE 4 MG/ML INJ IV PUSH ×6 (00:43→23:07)
[2019-08-13 04:00] VITALS: BP 124/77; PULSE 84; RESP 16; TEMP 36.1; O2SAT 95
[2019-08-13 04:23] LABS: Hepatitis B Core Ab Total Nonreactive (Nonreactive)
[2019-08-13 06:02] LABS: Alanine Aminotransferase 20 U/L (4-50); Albumin Level 3.4 g/dL (3.5-5.1); Alkaline Phosphatase 34 U/L (38-126); Aspartate Amino Transferase 25 U/L (17-59); Bilirubin,Total 0.8 mg/dL (0.2-1.3); Blood Urea Nitrogen 8 mg/dL (9-20); Calcium 8.3 mg/dL (8.4-10.2); Carbon Dioxide 27 mmol/L (22-30); Chloride 95 mmol/L (98-107); Estimated CRCL calculation 98 ml/min; Estimated Glomerular Filt Rate > 60; Glucose 84 mg/dL (75-110); Lipase 88 U/L (23-300); Potassium 3.8 mmol/L (3.4-5.0); Sodium 134 mmol/L (137-145)
[2019-08-13 06:10] LABS: Hematocrit 38.4 % (42.0-52.0); Hemoglobin 12.8 g/dL (14.0-18.0); Mean Corpuscular HGB Conc 33.3 g/dl (32-36); Mean Corpuscular Hemoglobin 33.3 pg (26-34); Mean Platelet Volume 10.9 fl (7.4-10.4); Platelet Count Result 114 k/mm3 (150-375); Red Blood Count 3.84 M/mm3 (4.6-6.20); Red Cell Distribution Width 13.8 % (11.5-14.5); White Blood Count 12.6 K/mm3 (4.5-10.0)
[2019-08-13 09:18] VITALS: PULSE 80; RESP 16; O2SAT 95
[2019-08-13] MEDS: NEOMYCIN/POLYMYXIN/BACITRACIN OINTMENT 15 GM TUBE 1 APPLIC TOPICAL (09:18)
[2019-08-13] MEDS: ENOXAPARIN 40 MG/0.4 ML SYRINGE SUB-Q (09:18)
[2019-08-13] MEDS: PANTOPRAZOLE SODIUM IV 40 MG VIAL IV PUSH (09:18)
[2019-08-13 12:00] VITALS: BP 121/76; PULSE 80; RESP 16; TEMP 36.1; O2SAT 94
--- NOTE | 2019-08-13 13:04 | PM.IMPN ---
Progress Note: A&P Assessment and Plan (1) Acute pancreatitis: Qualifiers: Acute pancreatitis complication: no infection or necrosis Pancreatitis type: idiopathic Qualified Code(s): K85.00 - Idiopathic acute pancreatitis without necrosis or infection Code(s): K85.90 - Acute pancreatitis without necrosis or infection, unspecified Status: Acute Assessment and Plan: CT abdomen/pelvis on admission with acute on chronic pancreatitis. RUQ ultrasound with hepatic steatosis. LFTs have now normalized. Lipase remains normal at 88. Triglycerides 179. Will leave patient on full liquids today as he is still having problems with ileus. Limit narcotic use. Ambulation encouraged. Home when ileus resolved. (2) Pancreatic pseudocyst: Code(s): K86.3 - Pseudocyst of pancreas Status: Acute Assessment and Plan: 2cm pancreatic pseudocyst was identified at the tail of the pancreas. Probably related to his prior episode of chronic pancreatitis and likely a chronic finding. Treatment of acute on chronic pancreatitis as noted above. (3) Ileus: Code(s): K56.7 - Ileus, unspecified Status: Acute Assessment and Plan: Repeat KUB on 08/12/2019 with findings consistent with ileus. Will continue suppositories. Soapsuds enema with minimal results yesterday. Limiting IV morphine. Ambulation encouraged. Repeat KUB today with nonobstructive pattern. Will start IV fluids as oral intake decreased with current situation. Previously NG tube placement attempted x2 without success. (4) Dislocation of shoulder: Qualifiers: Encounter type: initial encounter Laterality: left Qualified Code(s): S43.005A - Unspecified dislocation of left shoulder joint, initial encounter Code(s): S43.006A - Unspecified dislocation of unspecified shoulder joint, initial encounter Status: Acute Assessment and Plan: Patient developed a nontraumatic Hill-Sachs deformity of the prominent left humerus when in the CT scanner. The patient is status post reduction of his left shoulder. Follow-up imaging after reduction showed appropriate positioning of the anterior glenohumeral joint. Remains stable currently. Can follow-up with orthopedic surgery as an outpatient. (5) GERD (gastroesophageal reflux disease): Qualifiers: Esophagitis presence: esophagitis presence not specified Qualified Code(s): K21.9 - Gastro-esophageal reflux disease without esophagitis Code(s): K21.9 - Gastro-esophageal reflux disease without esophagitis Status: Acute Assessment and Plan: Stable. Continue Protonix. (6) CAD (coronary artery disease): Qualifiers: Associated angina: without angina Coronary Disease-Associated Artery/Lesion type: [place] artery [place] vs. transplanted heart: [place] heart Qualified Code(s): I25.10 - Atherosclerotic heart disease of [place] coronary artery without angina pectoris Code(s): I25.10 - Atherosclerotic heart disease of [place] coronary artery without angina pectoris Status: Acute Assessment and Plan: No present chest pain although reported history of chest pain 2-3 times per week with activity worse with deep inspiration to admitting provider. Echocardiogram currently with EF 65-70% and diastolic dysfunction grade 1. Remains stable. Will monitor clinically. (7) Hyperlipidemia: Qualifiers: Hyperlipidemia type: unspecified Qualified Code(s): E78.5 - Hyperlipidemia, unspecified Code(s): E78.5 - Hyperlipidemia, unspecified Status: Acute Assessment and Plan: Previously stopped atorvastatin. Total cholesterol 267 with LDL 214 and HDL 54. If willing, would benefit from restarting atorvastatin after resolution of acute issues. (8) Lymphoma: Qualifiers: Hodgkin lymphoma type: unspecified type Lymphoma site: unspecified region Lymphoma type: Hodgkin Qualified Code(
[2019-08-13] MEDS: SODIUM CHLORIDE 0.9% IV 250 ML 75 ML IV CONT (13:30)
[2019-08-13 16:00] VITALS: BP 142/58; PULSE 68; RESP 16; TEMP 36.8; O2SAT 99
[2019-08-13 21:16] VITALS: BP 134/85; PULSE 87; RESP 17; TEMP 36.6; O2SAT 95
[2019-08-14] MEDS: MORPHINE SULFATE 4 MG/ML INJ IV PUSH ×2 (03:07→07:52)
[2019-08-14] MEDS: BISACODYL 10 MG SUPPOSITORY RECTAL (03:08)
[2019-08-14 04:00] VITALS: BP 118/51; PULSE 90; RESP 16; TEMP 36.2; O2SAT 96
[2019-08-14 08:00] VITALS: BP 126/75; PULSE 68; RESP 16; TEMP 36.4; O2SAT 97
[2019-08-14] MEDS: ENOXAPARIN 40 MG/0.4 ML SYRINGE SUB-Q (08:23)
[2019-08-14] MEDS: NEOMYCIN/POLYMYXIN/BACITRACIN OINTMENT 15 GM TUBE 1 APPLIC TOPICAL (08:23)
[2019-08-14] MEDS: PANTOPRAZOLE SODIUM IV 40 MG VIAL IV PUSH (08:23)
[2019-08-14 08:25] VITALS: PULSE 92; RESP 16; O2SAT 96
--- NOTE | 2019-08-14 09:17 | PM.IMPN ---
Progress Note: A&P Assessment and Plan (1) Acute pancreatitis: Qualifiers: Acute pancreatitis complication: no infection or necrosis Pancreatitis type: idiopathic Qualified Code(s): K85.00 - Idiopathic acute pancreatitis without necrosis or infection Code(s): K85.90 - Acute pancreatitis without necrosis or infection, unspecified Status: Acute Assessment and Plan: CT abdomen/pelvis on admission with acute on chronic pancreatitis. RUQ ultrasound with hepatic steatosis. LFTs have now normalized. Lipase remains normal at 88. Triglycerides 179. Pancreatitis resolved with improved. Will advance to low-fat diet this morning. Encouraged ambulation. Possible discharge later today depending on how he is doing. (2) Pancreatic pseudocyst: Code(s): K86.3 - Pseudocyst of pancreas Status: Acute Assessment and Plan: 2cm pancreatic pseudocyst was identified at the tail of the pancreas. Probably related to his prior episode of chronic pancreatitis and likely a chronic finding. Treatment of acute on chronic pancreatitis as noted above. (3) Ileus: Code(s): K56.7 - Ileus, unspecified Status: Acute Assessment and Plan: Repeat KUB on 08/12/2019 with findings consistent with ileus. Will continue suppositories. Soapsuds enema with minimal results yesterday. Limiting IV morphine. Ambulation encouraged. Repeat KUB on 08/13/2019 with nonobstructive pattern with improvement of ileus. Had bloating with IV fluids which were discontinued overnight. Has now had small bowel movement yesterday. Appetite improved. Advancing diet. Possible discharge later today. (4) Dislocation of shoulder: Qualifiers: Encounter type: initial encounter Laterality: left Qualified Code(s): S43.005A - Unspecified dislocation of left shoulder joint, initial encounter Code(s): S43.006A - Unspecified dislocation of unspecified shoulder joint, initial encounter Status: Acute Assessment and Plan: Patient developed a nontraumatic Hill-Sachs deformity of the prominent left humerus when in the CT scanner. The patient is status post reduction of his left shoulder. Follow-up imaging after reduction showed appropriate positioning of the anterior glenohumeral joint. Remains stable currently. Can follow-up with orthopedic surgery as an outpatient. (5) GERD (gastroesophageal reflux disease): Qualifiers: Esophagitis presence: esophagitis presence not specified Qualified Code(s): K21.9 - Gastro-esophageal reflux disease without esophagitis Code(s): K21.9 - Gastro-esophageal reflux disease without esophagitis Status: Acute Assessment and Plan: Stable. Continue Protonix. (6) CAD (coronary artery disease): Qualifiers: Coronary Disease-Associated Artery/Lesion type: [place] artery [place] vs. transplanted heart: [place] heart Associated angina: without angina Qualified Code(s): I25.10 - Atherosclerotic heart disease of [place] coronary artery without angina pectoris Code(s): I25.10 - Atherosclerotic heart disease of [place] coronary artery without angina pectoris Status: Acute Assessment and Plan: Stable. No present chest pain although reported history of chest pain 2-3 times per week with activity worse with deep inspiration to admitting provider. Echocardiogram currently with EF 65-70% and diastolic dysfunction grade 1. Will monitor clinically. (7) Hyperlipidemia: Qualifiers: Hyperlipidemia type: unspecified Qualified Code(s): E78.5 - Hyperlipidemia, unspecified Code(s): E78.5 - Hyperlipidemia, unspecified Status: Acute Assessment and Plan: Previously stopped atorvastatin. Total cholesterol 267 with LDL 214 and HDL 54. If willing, would benefit from restarting atorvastatin after resolution of acute issues. (8) Lymphoma: Qualifiers: Lymphoma type: Hodgkin Hodgkin l
[2019-08-14 12:00] VITALS: BP 122/76; PULSE 69; RESP 16; TEMP 36.4; O2SAT 98
[2019-08-14 16:00] VITALS: BP 128/82; PULSE 75; RESP 16; TEMP 36.4; O2SAT 97
[2019-08-14] MEDS: HEPARIN SOD FLUSH 500 UNITS/5 ML SYRINGE IV PUSH (17:26)
--- NOTE | 2019-08-14 22:46 | PM.DS ---
DS: Diagnosis Admitting Diagnosis Admitting Diagnosis: Idiopathic acute pancreatitis without necrosis or infection Discharge Diagnosis (1) Acute pancreatitis: Qualifiers: Acute pancreatitis complication: no infection or necrosis Pancreatitis type: idiopathic Qualified Code(s): K85.00 - Idiopathic acute pancreatitis without necrosis or infection Code(s): K85.90 - Acute pancreatitis without necrosis or infection, unspecified Status: Acute (2) Pancreatic pseudocyst: Code(s): K86.3 - Pseudocyst of pancreas Status: Acute (3) Ileus: Code(s): K56.7 - Ileus, unspecified Status: Acute (4) Dislocation of shoulder: Qualifiers: Encounter type: initial encounter Laterality: left Qualified Code(s): S43.005A - Unspecified dislocation of left shoulder joint, initial encounter Code(s): S43.006A - Unspecified dislocation of unspecified shoulder joint, initial encounter Status: Acute (5) GERD (gastroesophageal reflux disease): Qualifiers: Esophagitis presence: esophagitis presence not specified Qualified Code(s): K21.9 - Gastro-esophageal reflux disease without esophagitis Code(s): K21.9 - Gastro-esophageal reflux disease without esophagitis Status: Acute (6) CAD (coronary artery disease): Qualifiers: Associated angina: without angina Coronary Disease-Associated Artery/Lesion type: [place] artery [place] vs. transplanted heart: [place] heart Qualified Code(s): I25.10 - Atherosclerotic heart disease of [place] coronary artery without angina pectoris Code(s): I25.10 - Atherosclerotic heart disease of [place] coronary artery without angina pectoris Status: Acute (7) Hyperlipidemia: Qualifiers: Hyperlipidemia type: unspecified Qualified Code(s): E78.5 - Hyperlipidemia, unspecified Code(s): E78.5 - Hyperlipidemia, unspecified Status: Acute (8) Lymphoma: Qualifiers: Hodgkin lymphoma type: unspecified type Lymphoma site: unspecified region Lymphoma type: Hodgkin Qualified Code(s): C81.90 - Hodgkin lymphoma, unspecified, unspecified site Code(s): C85.90 - Non-Hodgkin lymphoma, unspecified, unspecified site Status: Acute (9) COPD (chronic obstructive pulmonary disease): Qualifiers: COPD type: unspecified COPD Qualified Code(s): J44.9 - Chronic obstructive pulmonary disease, unspecified Code(s): J44.9 - Chronic obstructive pulmonary disease, unspecified Status: Acute (10) Tobacco dependence: Code(s): F17.200 - Nicotine dependence, unspecified, uncomplicated Status: Acute DS: Summary Hospital Course Reason for hospitalization: Diffuse abdominal pain radiating to the midback Hospital Course: Date of Service of Discharge: August 14, 2019. History of Present Illness: Patient is a 63-year-old gentleman with known COPD, Hodgkin's lymphoma status post bone marrow transplant on infusions, hyperlipidemia, coronary artery disease, GERD and history of alcoholism previously complicated by pancreatitis 5 years ago present to the emergency room with diffuse abdominal pain radiating to the midback. Patient reported not consuming alcohol for approximately 1 month. He did note anorexia x3 days. On , he did not eat much but ate 2 hot dogs and candy on Sunday. After this meal he vomited 4 times. No fever, chills or sweats. No shortness of breath. He does report having diarrhea. On evaluation the emergency room, findings were consistent with pancreatitis. He did receive 2 L of normal saline in the emergency room. He was then admitted for further evaluation and treatment. Course in Hospital: On admission, patient was placed on the medical floor where he remained for the duration of his stay. He was initially placed NPO with IV fluids. He was given IV morphine for pain. Additional imaging was obtained including RUQ ultrasound steatosis.
== END 2019-08-14 18:30 | disposition home or self-care (01) | DRG 282 ==
LOC: ANHED 08-09 05:08 → ANH3MED 08-09 05:17
PROVIDERS: Emergency Medicine; Internal Medicine; Physician Assistant; Admitting Provider Internal Medicine; Emergency Provider Emergency Medicine; PCP Family Medicine Adolescent Medicine; Visit Provider Hospitalist
DX: K85.00 Idiopathic acute pancreatitis without necrosis or infection (principal); M24.412 Recurrent dislocation, left shoulder; K86.3 Pseudocyst of pancreas; K86.1 Other chronic pancreatitis; J44.9 Chronic obstructive pulmonary disease, unspecified; Z85.72 Personal history of non-Hodgkin lymphomas; E78.5 Hyperlipidemia, unspecified; I25.10 Atherosclerotic heart disease of native coronary artery without angina pectoris; F17.210 Nicotine dependence, cigarettes, uncomplicated; G89.29 Other chronic pain; M54.9 Dorsalgia, unspecified; M19.90 Unspecified osteoarthritis, unspecified site; K21.9 Gastro-esophageal reflux disease without esophagitis; Z92.21 Personal history of antineoplastic chemotherapy; M21.922 Unspecified acquired deformity of left upper arm; I70.90 Unspecified atherosclerosis; R06.00 Dyspnea, unspecified; N28.1 Cyst of kidney, acquired; N40.0 Benign prostatic hyperplasia without lower urinary tract symptoms; Z94.81 Bone marrow transplant status; K44.9 Diaphragmatic hernia without obstruction or gangrene; K56.0 Paralytic ileus; F10.21 Alcohol dependence, in remission
CPT/HCPCS: 23650; 36415; 71046; 73030; 74018; 74019; 74177; 76705; 80048; 80053; 80061; 81001; 83036; 83690; 83735; 84484; 85025; 85027; 85055; 85610; 85730; 86140; 86704; 86706; 86803; 87040; 87340; 90471; 90686; 93005; 93306; 93970; 94640; 96361; 96374; 96375; 96376; 99285; A4565; A9270; C9113; G0008; G0378; G0379; J1642; J1650; J2250; J2270; J2405; J3010; J7030; J7050; J7120; Q9967

== ENCOUNTER 2020-07-26 15:38 | Outpatient (CLI) | payer OTHER, SELFPAY ==
--- NOTE | ~2020-07-26 | CT_ITS ---
EXAMINATION: CT diagnostic chest wo con DATE: 07/26/2020 16:28 INDICATION: Lung infiltrate TECHNIQUE: Computed tomography (CT) of the chest was performed without intravenous contrast. Automate d exposure control and iterative reconstruction technique were employed. Exam dose: 401.97 mGy-cm to christine exam DLP. COMPARISON: 08/20/2021 view chest FINDINGS: There is a left Port-A-Cath catheter in the superior vena cava. There is grade vessel, aortic and coronary atherosclerosis. No thoracic aortic aneurysm is detected. No hilar or mediastinal mass lesion or lymphadenopathy. No pericardial or pleural effusion. There are peripheral interstitial fibrotic changes suggesting usual interstitial pneumonia. No pulmonary infiltrate or consolidation or pulmonary mass lesion is detected. No adrenal mass lesion or lymphadenopathy. Diffuse hepatic steatosis, with minimal pericholecystic sparing. There is some peripancreatic fat stranding in the region of the pancreatic tail; recommend clinical c orrelation for possible pancreatitis. There is diffuse idiopathic skeletal hyperostosis of the thoracic and upper lumbar spine. There is a likely chronic mild anterior wedge compression fracture deformity of T10. IMPRESSION: Usual interstitial pneumonia Left Port-A-Cath Hepatic steatosis Reviewed, dictated and finalized at [facility]. Reviewed, dictated and finalized at location [facility]. ING SUPERVISOR
== END 2020-07-26 15:39 | disposition home or self-care (01) ==
PROVIDERS: Family Provider Family Medicine Adolescent Medicine; Visit Provider Nurse Practitioner Gerontology
DX: R91.8 Other nonspecific abnormal finding of lung field (principal); J18.9 Pneumonia, unspecified organism; K76.0 Fatty (change of) liver, not elsewhere classified
CPT/HCPCS: 71250

== ENCOUNTER → 2020-09-29 13:18 | Outpatient (CLI) | payer OTHER, SELFPAY ==
--- NOTE | ~2020-09-29 | XR_ITS ---
XR lumbar spine 2-3V 09/29/2020 14:37 Indication: Radiculopathy. Back pain. Procedure: 3 views lumbar spine Comparison: . 10/02/2017 Findings: There is disc narrowing at all lumbar levels. There is degenerative retrolisthesis at L3-4 and L4-5. There is advanced multilevel facet hypertrophy. There are prominent ventral bulky osteophyt es. There is mild levoscoliosis. There is atherosclerosis of the aorta. There is progression of disc narrowing at L4-5. Impression: 1: Severe lumbar spondylosis with progression at L4-5. Reviewed, dictated and finalized at location [facility]. Impression: 1: Severe lumbar spondylosis with progression at L4-5.
--- NOTE | ~2020-09-29 | XR_ITS ---
EXAMINATION: XR cervical spine 4-5V DATE: 09/29/2020 14:37 INDICATION: Cervical radiculopathy. Chronic neck pain. TECHNIQUE: 4 views of cervical spine were obtained. COMPARISON: None. FINDINGS: There is 6 degrees levocurvature of cervicothoracic spine. Vertebral body heights are akhil l. There is mildly decreased disc height at C3-C4, severely decreased disc height at C5-C6, and moder ately decreased disc height at C6-C7. There is multilevel uncovertebral joint osteoarthritis, severe on the right at C5-C6. There is multilevel mild to moderate facet joint osteoarthritis. There is mild central canal stenosis at C5-C6. No prevertebral soft tissue swelling. IMPRESSION: 1. Severe cervical spondylosis. Reviewed, dictated and finalized at location [facility].
== END ==
PROVIDERS: PCP Internal Medicine; Visit Provider Pain Medicine Interventional Pain Medicine
DX: M47.22 Other spondylosis with radiculopathy, cervical region (principal); M48.02 Spinal stenosis, cervical region; M47.26 Other spondylosis with radiculopathy, lumbar region; M48.061 Spinal stenosis, lumbar region without neurogenic claudication
CPT/HCPCS: 72050; 72100

== ENCOUNTER 2022-02-01 14:04 | Outpatient (CLI) | payer MEDICARE, MEDICAID, SELFPAY ==
--- NOTE | ~2022-02-01 | XR_ITS ---
XR knee RT min 4V DATE: 02/01/2022 14:56 INDICATION: Knee pain TECHNIQUE: Weightbearing AP, PA views, sunrise and crosstable lateral views COMPARISON: 10/2016 right knee FINDINGS: There is patchy sclerosis in the medial femoral condyle and proximal tibia previously attributed to o steonecrosis. There is tricompartment osteoarthritis, most prominent at the lateral compartment, with prominent yunior nt space narrowing. No fracture or dislocation or joint effusion. No periosteal reaction or bone destruction. IMPRESSION: Chronic osteonecrosis of medial femoral condyle and proximal tibia Tricompartment osteophyte is, most pronounced at the lateral compartment Little interval change since 11/02/2016 Reviewed, dictated and finalized at location [facility].
--- NOTE | ~2022-02-01 | XR_ITS ---
XR shoulder RT min 2V DATE: 02/01/2022 14:52 INDICATION: Right shoulder pain and popping TECHNIQUE: 4 views of right shoulder COMPARISON: None FINDINGS: Old healed right mid clavicular shaft fracture deformity. Prominent inferior spurring and narrowing of the right acromioclavicular joint. Mild osteoarthritis at the right glenohumeral joint. No recent fracture or dislocation, periosteal reaction or bone destruction or abnormal right shoulder soft tissue calcification. Degenerative changes of the cervical spine including degenerative disc disease, particular at C5-6 an d C6-7 and prominent uncovertebral joint spurring, especially on the right at C5-6 and C6-7, with cor responding bony encroachment upon the right C6 and C7 neural foramina in particular. Degenerative spu rring of the thoracic spine. Left Port-A-Cath catheter tip overlies superior vena cava. IMPRESSION: Degenerative change at right acromioclavicular joint with prominent inferior spur Mild glenohumeral osteoarthritis Old right clavicular shaft fracture deformity Cervical spondylosis Reviewed, dictated and finalized at location [facility].
--- NOTE | ~2022-02-01 | XR_ITS ---
XR cervical spine 4-5V DATE: 02/01/2022 14:52 INDICATION: Shoulder pain and radiculopathy TECHNIQUE: AP, open-mouth, lateral and swimmer views COMPARISON: None FINDINGS: Sutures and plates and screws of left facial bones. There is reversal of cervical curvature. C1 and C2 are normally aligned and the odontoid process is intact. No fracture or dislocation or lock ed facet of the cervical spine is detected. There is mild to moderate degenerative disc disease at C2-3 and C4-5. Moderately prominent degenerative disc disease and mild anterolisthesis at C3-4. Moderately severe degenerative disc disease and mild retrolisthesis at C5-6. Moderate degenerative disc disease at C6-7. Prominent uncovertebral joint spurring is noted in particular on the right at C4-5, C5-C6 and C6-7. D egenerative change at the apophyseal joints. IMPRESSION: Cervical spondylosis Reversal cervical curvature Reviewed, dictated and finalized at location B.
--- NOTE | ~2022-02-01 | XR_ITS ---
XR shoulder LT min 2V DATE: 02/01/2022 14:53 INDICATION: Left shoulder pain, popping. No injury. TECHNIQUE: 4 views COMPARISON: August 09, 2019 portable 2 view left shoulder radiographic examination FINDINGS: Left Port-A-Cath catheter is again noted. Osteopenia. Hill-Sachs deformity of the left humerus. There is degenerative change at the left acromioclavicular joint. No fracture or dislocation, periosteal reaction or bone destruction. Cervical spondylosis. IMPRESSION: Degenerative change of left acromion clavicular joint Osteopenia Hill Sachs deformity of left humerus from prior dislocation Reviewed, dictated and finalized at location B.
--- NOTE | ~2022-02-01 | XR_ITS ---
XR lumbar spine 2-3V DATE: 02/01/2022 14:52 INDICATION: Back pain, radiculopathy TECHNIQUE: AP, lateral, coned lateral lumbosacral views COMPARISON: 09/29/2020 lumbar spine FINDINGS: Minimal levoscoliosis of the lumbar spine. Prominent degenerative spurring of the lower thoracic spine. Mild to moderate degenerative disc disease at L5 S1. Mildly severe degenerative disc disease at L1 to and L4-5, with mild retrolisthesis at L4-5. Moderate degenerative disc disease at L2-3 and L3-4, with mild retrolisthesis at L3-4. Very prominent bridging osteophytes at T12-L5. No fracture or bone destruction is evident. The lumbar pedicles are intact. The sacroiliac joints are normally aligned. Extensive calcification of the abdominal aorta and iliac arteries, without evidence of abdominal aort ic aneurysm. IMPRESSION: Extensive degenerative change of the lumbar spine and lower thoracic spine Reviewed, dictated and finalized at location [facility]. IMPRESSION: Extensive degenerative change of the lumbar spine and lower thoraci c spine
--- NOTE | ~2022-02-01 | XR_ITS ---
XR knee LT min 4V DATE: 02/01/2022 14:53 INDICATION: Left knee pain TECHNIQUE: [place], weightbearing AP, PA views and crosstable lateral views of left knee COMPARISON: None FINDINGS: There is osteopenia. There is bone infarct or benign chondroid tumor of the distal femoral metaphysis. Mild periarticular spurring at the patellofemoral joint consistent with osteoarthritis. Severe joint space narrowing and prominent spurring at the lateral compartment of the knee consistent with severe osteoarthritis. Old fracture deformities of the proximal tibial shaft, fibular neck and proximal fibular shaft. There is osseous union of the femoral and tibial shafts across the interosseous membrane. No recent fracture or dislocation or significant joint effusion. No periosteal reaction or bone destruction is noted. No radiopaque intra-articular loose body or laurie drocalcinosis. IMPRESSION: Osteopenia Osteoarthritis involving most severely the lateral compartment, to a lesser extent the patellofemoral compartment Infarct or benign chondroid tumor distal femoral metaphysis Old fracture deformities of the proximal tibial shaft, fibular neck and proximal fibular shaft Reviewed, dictated and finalized at location [facility]. IMPRESSION: Osteopenia Osteoarthritis involving most severely the lateral compartment, to a lesser ext ent the patellofemoral compartment Infarct or benign chondroid tumor distal femoral metaphysis Old fracture deformities of the proximal tibial shaft, fibular neck and proxima l fibular shaft
== END 2022-02-01 14:05 | disposition home or self-care (01) ==
PROVIDERS: Visit Provider Pain Medicine Interventional Pain Medicine
DX: M25.561 Pain in right knee (principal); M19.012 Primary osteoarthritis, left shoulder; M19.011 Primary osteoarthritis, right shoulder; M87.88 Other osteonecrosis, other site; M17.12 Unilateral primary osteoarthritis, left knee; M54.17 Radiculopathy, lumbosacral region
CPT/HCPCS: 72050; 72100; 73030; 73564

== ENCOUNTER 2022-06-02 15:26 | Outpatient (CLI) | payer MEDICARE, MEDICAID, SELFPAY ==
[2022-06-02 16:06] LABS: Basophils Percent Auto 0.8 % (0.2-1.2); Eosinophils Absolute Auto 0.2 K/mm3 (0-0.3); Eosinophils Percent Auto 3.6 % (0-4.4); Hematocrit 26.3 % (42.0-52.0); Hemoglobin 7.2 g/dL (14.0-18.0); Immature Granulocyte Absolute 0.02 K/mm3 (0.00-0.031); Immature Granulocyte Percent A 0.4 % (0-0.5); Immature Platelet Fraction Pct 7.5 % (0.9-11.2); Mean Corpuscular HGB Conc 27.4 g/dl (32-36); Mean Corpuscular Hemoglobin 21.3 pg (26-34); Mean Corpuscular Volume 77.8 fl (80-100); Monocytes Absolute Auto 0.7 K/mm3 (0.1-0.6); Monocytes Percent Auto 15.2 % (2.6-8.5); Nucleated Red Blood Cells Perc 0.4 % (0.0-0.2); Platelet Count Result 153 k/mm3 (150-375); Red Blood Count 3.38 M/mm3 (4.6-6.20); Red Cell Distribution Width 17.3 % (11.5-14.5); White Blood Count 4.7 K/mm3 (4.5-10.0)
[2022-06-02 16:15] LABS: Alanine Aminotransferase 25 U/L (6-50); Albumin Level 3.9 g/dL (3.5-5.1); Alkaline Phosphatase 56 U/L (38-126); Anion Gap 7 mmol/L (8-16); Aspartate Amino Transferase 32 U/L (17-59); Bilirubin,Total 0.5 mg/dL (0.2-1.3); Blood Urea Nitrogen 6 mg/dL (9-20); Calcium 8.5 mg/dL (8.4-10.2); Carbon Dioxide 28 mmol/L (22-30); Chloride 106 mmol/L (98-107); Estimated Glomerular Filt Rate > 60; Glucose 177 mg/dL (65-110); Potassium 4.1 mmol/L (3.4-5.0); Sodium 141 mmol/L (137-145)
[2022-06-02 16:24] LABS: Immunoglobulin G 556 mg/dL (700-1600)
[2022-06-02 16:39] LABS: Hypochromasia 1+ (NORMAL); Platelet Estimate Adequate (Adequate)
[2022-06-02 16:40] LABS: Anisocytosis 2+ (NORMAL); Schistocytes None Seen (NORMAL)
== END 2022-06-02 15:27 | disposition home or self-care (01) ==
PROVIDERS: Visit Provider Internal Medicine Hematology & Oncology
DX: C81.98 Hodgkin lymphoma, unspecified, lymph nodes of multiple sites (principal); D81.9 Combined immunodeficiency, unspecified
CPT/HCPCS: 36415; 80053; 82784; 85025; 85055

== ENCOUNTER 2022-07-12 12:27 | Outpatient (CLI) | payer MEDICARE, MEDICAID, SELFPAY ==
--- NOTE | 2022-07-12 15:30 | WPDSIXMINUTE ---
Six Minute Walk Procedure Procedure Performed Pulmonary Stress Test (6 min walk) Six Minute Walk Six Minute Walk: This is a 6 minute walk test. The test was performed and interpreted in accordance with the 2014 ERS/ATS task force guidelines. Findings: The patient's resting room air oxygen saturation measured by pulse oximetry was 98% and heart rate was 90 bpm. Patient ambulated for 122 meters and oxygen saturation remained 97 to 98%. Heart rate at the end of the study was 129 bpm. The patient did not qualify for supplemental oxygen at rest or with ambulation. There are no prior studies for comparison.
== END 2022-07-12 12:28 | disposition home or self-care (01) ==
LOC: ANHPFT 12:31
PROVIDERS: PCP Internal Medicine; Visit Provider Nurse Practitioner Gerontology
DX: J44.9 Chronic obstructive pulmonary disease, unspecified (principal)
CPT/HCPCS: 94618

== ENCOUNTER 2023-03-08 13:28 | Outpatient (CLI) | payer MEDICARE, MEDICAID, SELFPAY ==
--- NOTE | ~2023-03-08 | XR_ITS ---
EXAMINATION: XR cervical spine 4-5V DATE: 03/08/2023 14:23 INDICATION: Radiculopathy. TECHNIQUE: 4 views of cervical spine were obtained. COMPARISON: None. FINDINGS: There is 7 degrees levocurvature of cervicothoracic spine. There is mild kyphosis of cervic al spine. Vertebral body heights are normal. There is moderately decreased disc height at C3-C4, mild ly decreased disc height at C4-C5, severely decreased disc height at C5-C6, and mildly decreased disc height at C6-C7. There is multilevel uncovertebral joint osteoarthritis, severe bilaterally at C3-C4 , C5-C6, and C6-C7 and on the right at C4-C5. There is multilevel facet joint osteoarthritis, severe on the right at C4-C5. There is mild central canal stenosis at C3-C4, C4-C5, C5-C6, and C6-C7. No pre vertebral soft tissue swelling. Partially visualized is a left-sided central venous catheter. IMPRESSION: 1. Severe cervical spondylosis. Reviewed, dictated and finalized at location E.
--- NOTE | ~2023-03-08 | XR_ITS ---
EXAMINATION: XR knee LT min 4V DATE: 03/08/2023 14:23 INDICATION: Left knee pain. TECHNIQUE: 4 views of left knee including standing views were obtained. COMPARISON: Left knee radiograph 02/01/2022 FINDINGS: There are old healed fractures of proximal tibia and fibula. No acute fracture. There is sc lerosis in distal femur, consistent with osteonecrosis. There is severe osteoarthritis of lateral com partment and mild osteoarthritis of medial and patellofemoral compartments. No knee joint effusion. IMPRESSION: 1. Severe left knee osteoarthritis. 2. Osteonecrosis again seen in distal femur. Reviewed, dictated and finalized at location E.
--- NOTE | ~2023-03-08 | XR_ITS ---
EXAMINATION: XR shoulder RT min 2V DATE: 03/08/2023 14:23 INDICATION: Right shoulder pain. TECHNIQUE: 4 views of right shoulder were obtained. COMPARISON: Right shoulder radiographs 02/01/2022 FINDINGS: Bone alignment is normal. There is an old healed fracture of right clavicle. No acute fract ure. There is severe osteoarthritis of acromioclavicular joint and mild osteoarthritis of glenohumera l joint. IMPRESSION: 1. Polyarticular osteoarthritis. Reviewed, dictated and finalized at location E.
--- NOTE | ~2023-03-08 | XR_ITS ---
EXAMINATION: XR knee RT min 4V DATE: 03/08/2023 14:23 INDICATION: Right knee pain. TECHNIQUE: 4 views of right knee including standing views were obtained. COMPARISON: Right knee radiograph 02/01/2022 FINDINGS: Bone alignment is normal. No fracture. There is sclerosis in medial femoral condyle and pro ximal tibia, consistent with osteonecrosis. There is mild tricompartmental osteoarthritis. No knee aki int effusion. There is a loose body in the knee joint posteriorly. IMPRESSION: 1. Osteonecrosis again seen involving distal femur and proximal tibia. 2. Mild right knee osteoarthritis. 3. Right knee joint loose body. Reviewed, dictated and finalized at location E.
--- NOTE | ~2023-03-08 | XR_ITS ---
EXAMINATION: XR thoracic spine 3V DATE: 03/08/2023 14:23 INDICATION: Radiculopathy. TECHNIQUE: 3 views of thoracic spine on 4 radiographs were obtained. COMPARISON: None. FINDINGS: There is 7 degrees dextrocurvature of the C-spine. There is mild chronic anterior wedging o f T11 and T12 vertebral bodies. There is mildly decreased disc height at multiple levels in upper tho racic spine. There are bridging endplate osteophytes at multiple levels in the spine, consistent with diffuse idiopathic skeletal hyperostosis (DISH). There is a left subclavian port with tip in superi or vena cava. IMPRESSION: 1. Mild thoracic spondylosis. 2. DISH. Reviewed, dictated and finalized at location E.
--- NOTE | ~2023-03-08 | XR_ITS ---
EXAMINATION: XR lumbar spine 2-3V DATE: 03/08/2023 14:23 INDICATION: Radiculopathy. TECHNIQUE: 3 views of lumbar spine were obtained. COMPARISON: None. FINDINGS: There is 4 degrees levocurvature of lumbar spine. There is 3 mm retrolisthesis of L3 on L4 and L4-L5. There is mild chronic anterior wedging of T11 and T12 vertebral bodies. There are endplate osteophytes at all levels. There is mildly decreased disc height at L1-L2 and L3-L4 and severely dec reased disc height at L4-L5, and mildly decreased disc height at L5-S1. There is multilevel facet yunior nt osteoarthritis, severe in lower lumbar spine. IMPRESSION: 1. Severe lumbar spondylosis. Reviewed, dictated and finalized at location E.
--- NOTE | ~2023-03-08 | XR_ITS ---
EXAMINATION: XR shoulder LT min 2V DATE: 03/08/2023 14:23 INDICATION: Left shoulder pain. TECHNIQUE: 4 views of left shoulder were obtained. COMPARISON: Left shoulder radiographs 02/01/2022 FINDINGS: Bone alignment is normal. No acute fracture. There is severe osteoarthritis of acromioclavi cular joint and mild osteoarthritis of glenohumeral joint. There is an old fracture deformity of grea ter tuberosity. Partially visualized is a left subclavian port. IMPRESSION: 1. Polyarticular osteoarthritis. Reviewed, dictated and finalized at location E.
== END 2023-03-08 13:29 | disposition home or self-care (01) ==
LOC: ANHIMG 13:33
PROVIDERS: PCP Internal Medicine; Visit Provider Pain Medicine Interventional Pain Medicine
DX: M19.012 Primary osteoarthritis, left shoulder (principal); M47.24 Other spondylosis with radiculopathy, thoracic region; M19.011 Primary osteoarthritis, right shoulder; M17.0 Bilateral primary osteoarthritis of knee; M47.22 Other spondylosis with radiculopathy, cervical region; M47.27 Other spondylosis with radiculopathy, lumbosacral region
CPT/HCPCS: 72050; 72072; 72100; 73030; 73564

== ENCOUNTER 2023-06-21 14:42 | Outpatient (CLI) | payer MEDICARE, MEDICAID, SELFPAY ==
--- NOTE | 2023-06-21 | ECHO_ITS ---
Patient Info Name: Kwesi Pham Age: 67 years : 1955 Gender: Male Ht: 66 in Wt: 200 lbs BSA: 2.09 m2 HR: 88 bpm BP: 147 / 91 mmHg Technical Quality: Fair Exam Date: 06/21/2023 3:16 PM Exam Location: Echo Lab Patient Status: Outpatient Admit Date: 06/21/2023 Staff Ordering Physician: AguilaCarrie [employer] Teacher: Abigail Chaves RDCS Attending Provider: AguilaCarrie Exam Type: CA echo doppler color flow Study Info Indications - copd persistant cough Complete two-dimensional, color flow and Doppler transthoracic echocardiogram is performed. Summary 1. Complete two-dimensional, color flow and Doppler transthoracic echocardiogram is performed. 2. Left ventricular chamber dimension is normal. 3. Left ventricular systolic function is normal, estimated at 60-65%. 4. The left ventricular diastolic function is grade I diastolic dysfunction. 5. E/e' 9 is minimally elevated. 6. There is mild aortic valve sclerosis. 7. The mitral valve has mildly calcified leaflets and mildly calcified annulus. 8. There is trace tricuspid valve regurgitation. 9. No pulmonary hypertension, estimated pulmonary arterial systolic pressure is 34 mmHg. Left Ventricle E/e' 9 is minimally elevated. Left ventricular chamber dimension is normal. Left ventricular systolic function is normal, estimated at 60-65%. The left ventricular diastolic function is grade I diastolic dysfunction. Right Ventricle Right ventricular chamber dimension is normal. Right ventricular systolic function is normal. Left Atria Left atrial chamber dimension is normal. Right Atria Right atrial chamber dimension is normal. Aortic Valve The aortic valve is trileaflet. There is mild aortic valve sclerosis. There is no aortic valve stenosis. There is no aortic valve regurgitation. Pulmonic Valve There is no pulmonic regurgitation. Mitral Valve The mitral valve has mildly calcified leaflets and mildly calcified annulus. There is no mitral valve stenosis. There is no mitral valve regurgitation. Tricuspid Valve There is trace tricuspid valve regurgitation. No pulmonary hypertension, estimated pulmonary arterial systolic pressure is 34 mmHg. Pericardium/Pleural There is no pericardial effusion. Inferior Vena Cava Normal inferior vena cava with >50% collapse upon inspiration consistent with normal right atrial pressure, 5 mmHg. Aorta The aortic root size at the sinus of Valsalva is normal. Left Ventricular Outflow Tract Name Value Normal LVOT 2D LVOT Diameter 2.0 cm LVOT Doppler LVOT Peak Gradient 5 mmHg LVOT Mean Gradient 3 mmHg LVOT VTI 21 cm LVOT VTI/AV VTI Ratio 1.0 LVOT Stroke Volume 69 ml LVOT CO 14.8 l/min LVOT CI 7.1 l/min/m2 Pulmonic Valve Name Value Normal PV Doppler
== END 2023-06-21 14:43 | disposition home or self-care (01) ==
PROVIDERS: PCP Internal Medicine
DX: J44.1 Chronic obstructive pulmonary disease with (acute) exacerbation (principal); R93.1 Abnormal findings on diagnostic imaging of heart and coronary circulation; I35.8 Other nonrheumatic aortic valve disorders; I34.81 Nonrheumatic mitral (valve) annulus calcification; I07.1 Rheumatic tricuspid insufficiency
CPT/HCPCS: 93306

== ENCOUNTER 2023-08-16 16:22 | Outpatient (CLI) | payer MEDICARE, MEDICAID, SELFPAY ==
[2023-08-16 17:32] LABS: Basophils Absolute Auto 0.1 K/mm3 (0.0-0.1); Basophils Percent Auto 1.1 % (0.2-1.2); Eosinophils Absolute Auto 0.3 K/mm3 (0-0.3); Eosinophils Percent Auto 3.8 % (0-4.4); Hematocrit 43.7 % (42.0-52.0); Hemoglobin 13.1 g/dL (14.0-18.0); Immature Granulocyte Absolute 0.03 K/mm3 (0.00-0.031); Immature Granulocyte Percent A 0.5 % (0-0.5); Lymphocytes Absolute Auto 2.52 K/mm3 (0.9-3.2); Lymphocytes Percent Auto 38.1 % (18.3-44.2); Mean Corpuscular Hemoglobin 25.7 pg (26-34); Mean Corpuscular Volume 85.9 fl (80-100); Mean Platelet Volume 11.5 fl (7.4-10.4); Monocytes Absolute Auto 0.8 K/mm3 (0.1-0.6); Monocytes Percent Auto 11.6 % (2.6-8.5); Neutrophils Percent Auto 44.9 % (45.5-73.1); Platelet Count Result 149 k/mm3 (150-375); Red Blood Count 5.09 M/mm3 (4.6-6.20); Red Cell Distribution Width 17.2 % (11.5-14.5); White Blood Count 6.6 K/mm3 (4.5-10.0)
[2023-08-16 17:41] LABS: Alanine Aminotransferase 53 U/L (6-50); Albumin Level 4.1 g/dL (3.5-5.1); Alkaline Phosphatase 48 U/L (38-126); Anion Gap 5 mmol/L (8-16); Aspartate Amino Transferase 59 U/L (17-59); Bilirubin,Total 0.5 mg/dL (0.2-1.3); Blood Urea Nitrogen 8 mg/dL (9-20); Calcium 9.1 mg/dL (8.4-10.2); Carbon Dioxide 30 mmol/L (22-30); Chloride 104 mmol/L (98-107); Estimated Glomerular Filt Rate > 60; Glucose 91 mg/dL (65-110); Potassium 4.1 mmol/L (3.4-5.0); Sodium 139 mmol/L (137-145)
[2023-08-16 17:49] LABS: Transferrin 352 mg/dL (206-381)
[2023-08-16 19:02] LABS: Iron 66 ug/dL (49-181)
[2023-08-16 19:11] LABS: Percent Iron Saturation 16 % (20-50)
== END 2023-08-16 16:23 | disposition home or self-care (01) ==
LOC: ANHLAB 16:28
PROVIDERS: PCP Internal Medicine; Visit Provider Internal Medicine Hematology & Oncology
DX: D64.9 Anemia, unspecified (principal)
CPT/HCPCS: 36415; 80053; 82607; 82728; 82746; 83540; 83550; 84466; 85025

== ENCOUNTER 2023-08-24 09:50 | Outpatient (CLI) | payer MEDICARE, MEDICAID, SELFPAY ==
--- NOTE | ~2023-08-24 | CT_ITS ---
CT Scan of the Chest without Contrast: Clinical Indication: Lung cancer screening, tobacco dependence Technique: Contiguous sections were acquired throughout the chest without intravenous contrast. Dose reduction technique was used on this scan by utilizing automated exposure control and iterative recon struction technique. The dose-length product (DLP) was 177.82 mGy-cm. COMPARISON: 07/26/2020 Findings: There is no evidence of any significant mediastinal, hilar or axillary lymphadenopathy. There are ath erosclerotic calcifications of the aorta and coronary arteries. There is no evidence of pleural or pericardial effusion. There are scattered areas of mild peripheral chronic interstitial change. Calcified left lower lobe g ranuloma noted. No other pulmonary nodule evident. Images through the upper abdomen reveal no abnormalities. Impression: Lung RADS 2: Benign appearance. 12 month follow-up screening CT advised. Reviewed, dictated and finalized at [facility]. NE TUTOR Impression: Lung RADS 2: Benign appearance. 12 month follow-up screening CT advised.
== END 2023-08-24 09:51 | disposition home or self-care (01) ==
PROVIDERS: PCP Internal Medicine; Visit Provider Internal Medicine Hematology & Oncology
DX: Z12.2 Encounter for screening for malignant neoplasm of respiratory organs (principal); F17.210 Nicotine dependence, cigarettes, uncomplicated
CPT/HCPCS: 71271

== ENCOUNTER 2024-03-20 10:34 | Outpatient (CLI) | payer MEDICARE, MEDICAID, SELFPAY ==
--- NOTE | ~2024-03-20 | XR_ITS ---
EXAMINATION: XR fl port a cath w contrast DATE: 03/20/2024 11:28 INDICATION: Hodgkin lymphoma of lymph nodes. Port dysfunction. TECHNIQUE: I performed fluoroscopy of the chest while the port was injected with water-soluble contra st. 515 images were obtained. Fluoroscopy exposure time was 0.5 minutes. COMPARISON: Chest CT 08/24/2023 FINDINGS: There is a left subclavian port with tip in superior vena cava. There is persistent contras t around the port tip after injection suggesting a fibrin sheath. IMPRESSION: 1. Fibrin sheath around the port tip. Reviewed, dictated and finalized at location A.
== END 2024-03-20 10:35 | disposition home or self-care (01) ==
PROVIDERS: PCP Internal Medicine; Visit Provider Internal Medicine Hematology & Oncology
DX: C81.98 Hodgkin lymphoma, unspecified, lymph nodes of multiple sites (principal); D81.9 Combined immunodeficiency, unspecified; T85.9XXA Unspecified complication of internal prosthetic device, implant and graft, initial encounter
CPT/HCPCS: 36598; Q9966

== ENCOUNTER 2024-03-28 10:06 | Outpatient (CLI) | payer MEDICARE, MEDICAID, SELFPAY ==
[2024-03-28 10:43] LABS: INR 0.9; Prothrombin Time 12.4 Seconds (11.1-14.7)
[2024-03-28 10:44] LABS: Partial Thromboplastin Time 22.9 Seconds (22.3-36.8)
== END 2024-03-28 10:07 | disposition home or self-care (01) ==
LOC: ANHSURGERY 10:10
PROVIDERS: PCP Internal Medicine; Visit Provider Surgery
DX: Z01.818 Encounter for other preprocedural examination (principal); C85.90 Non-Hodgkin lymphoma, unspecified, unspecified site
CPT/HCPCS: 36415; 85610; 85730

== ENCOUNTER 2024-03-31 00:04 | Day surgery (SDC) | payer MEDICARE, MEDICAID, SELFPAY ==
--- NOTE | 2024-03-27 13:10 | PC.NURSE ---
Report to the Outpatient Waiting Room, entrance under the green pavilion located off [facility], at time _10 AM on date __03/31/24 . Planned Procedure Time: ___12 NOON .? Time changes happen often and if your time is changed the preop area will call you the afternoon before. - You and your visitor will be asked to self-screen and do not enter if you have any COVID symptoms. Please call surgeon if you need to reschedule. - A mask is optional within the hospital at this time. Patients may have clear liquids (water, carbonated beverages, clear teas, apple juice) until 3 hours prior to surgery( 9AM) with a maximum of 20 ounces. - No food from midnight until time of surgery and no smoking - Infants may have breast milk until 4 hours before surgery, formula 6 hours prior to surgery. - Children will be allowed to drink immediately following surgery.? If applicable, please bring a bottle or sippy cup to assist with drinking. Juice, water, soda, and popsicles are readily available.? For infants on formula, please bring formula the day of surgery.? Pacifiers are allowed. Take only the following medications with a SIP of water on the morning of surgery: _PRO AIR IF NEEDED , GABAPENTIN,HYDROCODONE IF NEEDED FOR PAIN DO NOT STOP ANY OF YOUR OTHER PRESCRIPTION MEDICATIONS PRIOR TO SURGERY EXCEPT THE FOLLOWING Medications to discontinue per physician HOLD ALL VITAMINS AND SUPPLEMENTS _3 DAYS PRE OP .LAST DOSE 03/27/24 Please no make-up, nail sudanese, hairspray, perfume, deodorant, or body powder the day of surgery.? No jewelry (including any body piercings) or valuables the day of surgery, leave them at home.? Please take a shower or bath the night before, or the morning of, surgery with an antibacterial soap.? Wear comfortable, loose fitting clothing.? Children are encouraged to wear pajamas. - Jewelry must be removed prior to entering the operating room.? Rings and piercings that are not removed may be cut off. - The hospital will not accept responsibility for valuables.? - Please leave all valuables, including medications, at home the day of surgery. If you are going home after surgery, a licensed driver helper must drive you home.? - NO public transportation without another adult if you receive anesthesia. - We recommend that an adult stay with you for 24 hours following discharge. - We also recommend that you do not drive, make important decision, drink alcoholic beverages, or take any drugs that were not prescribed by your health care provider for at least 24 hours after your discharge time. For Pediatric surgeries, we recommend two adults accompany the child home. Follow any additional instructions given to you from your surgeon. Telephone instructions given to __PATIENT and asked if any additional questions and then verbalized understanding. Patient advised to call surgeon office or pre surgery nurse liaison [phone] if any additional questions.
[2024-03-27 13:29] VITALS: BMI 32.3
--- NOTE | ~2024-03-31 | XR_ITS ---
EXAMINATION: XR chest port-a-cath/central DATE: 03/31/2024 14:22 INDICATION: Port placement. TECHNIQUE: A single frontal view of the chest was obtained. COMPARISON: Chest 2 views 08/10/2019 FINDINGS: There is no pneumonia, pleural effusion, or pneumothorax. The heart size is normal. There i s a left subclavian port with tip in superior vena cava. There is a right subclavian port with tip in superior vena cava. There is an old healed fracture of right clavicle. IMPRESSION: 1. New right subclavian port with tip in superior vena cava. Reviewed, dictated and finalized at location A.
--- NOTE | ~2024-03-31 | XR_ITS ---
EXAMINATION: XR fl guide central line place DATE: 03/31/2024 13:15 CDT INDICATION: PORT A CATH INSERTION(RIGHT),LEFT PRE EXISTING . TECHNIQUE: 1 fluoroscopic image of the chest were obtained during Port-A-Cath insertion, performed by Norman Ambrocio MD. I was not present during the procedure. Fluoroscopy exposure time was 50.1 second s. Air Kerma 6.81 mGy. DAP [id number] mGym2. COMPARISON: None FINDINGS/IMPRESSION: Fluoroscopic documentation of Port-A-Cath insertion. Please refer to the operative note for complete procedural details . Reviewed, dictated and finalized at location K.
[2024-03-31 10:50] VITALS: BP 142/89; PULSE 94; TEMP 36.4; O2SAT 97; BMI 28.8
[2024-03-31] MEDS: KETOROLAC 15 MG/ML VIAL (*BKC) IV PUSH (10:50)
--- NOTE | 2024-03-31 11:53 | WPDANESEPPF ---
Anes - Initial Pre Proc Eval Procedure: Operation Date: 03/31/24 12:00 Proposed Procedures p Removal Baltazar Cath, Insertion Baltazar Cath - Norman Ambrocio MD Date/Time: 03/31/24 11:53 Surgeon: Norman Ambrocio MD Pre Op Diagnosis: hodgkin's lymphoma Patient Data Age: 68 Gender: M Height: 1.68 m Weight: 80.95 kg Last Vital Signs Temp 97.5 F L 03/31/24 10:50 Pulse 94 03/31/24 10:50 BP 142/89 H 03/31/24 10:50 Pulse Ox 97 03/31/24 10:50 O2 Del Method Room Air 03/31/24 10:50 Allergies Allergy/AdvReac Type Severity Reaction Status Date / Time Penicillins Allergy Severe Other Verified 03/31/24 10:44 iodine Allergy Unknown TOPICAL. Verified 03/31/24 10:44 RASH codeine AdvReac Unknown Vomiting Verified 03/31/24 10:47 Home Medications Medication Instructions Recorded Confirmed Type albuterol sulfate 90 mcg/actuation 90 mcg inhalation PRN PRN 08/09/19 03/27/24 History aerosol inhaler (ProAir HFA) Shortness Of Breath Or Wheezing gabapentin 800 mg tablet 750 mg PO TID 08/09/19 03/27/24 History hydrocodone 10 mg-acetaminophen 1 tablet PO Q4H PRN Pain (Scale 08/09/19 03/27/24 History 325 mg tablet Score 4-6) lansoprazole 15 mg capsule,delayed 15 mg PO BID 08/09/19 03/27/24 History release methocarbamol 750 mg tablet 750 mg PO TID 08/09/19 03/27/24 History tiotropium bromide 18 mcg capsule 18 mcg inhalation DAILY PRN 08/09/19 03/27/24 History with inhalation device (Spiriva Shortness Of Breath Or Wheezing with HandiHaler) roflumilast 500 mcg tablet 500 mcg PO DAILY 03/12/24 03/27/24 History cholecalciferol (vitamin D3) 25 25 mcg PO DAILY 03/27/24 03/27/24 History mcg (1,000 unit) capsule ferrous sulfate 325 mg (65 mg 325 mg PO DAILY 03/27/24 03/27/24 History iron) tablet Patient hx anesthesia problems: none Family hx anesthesia problems: none Results Review: All pre-operative results and documents have been reviewed as part of the pre-operative evaluation. [facility] Past Medical History Medical History Arthritis Bronchitis CAD (coronary artery disease) Chronic back pain COPD (chronic obstructive pulmonary disease) DDD (degenerative disc disease) GERD (gastroesophageal reflux disease) History of chemotherapy Hyperlipidemia Leg fracture Lymphoma Neutropenia Pancreatitis Pneumonia Port-A-Cath in place Ulcer Surgical History Surgical History History of bone marrow transplant Family History Family History Other Depression Family history of alcoholism Family history of arthritis Family history of cardiovascular disease Family history of chronic obstructive pulmonary disease Family history of genitourinary disease Family history of hearing loss Family history of hepatitis Family history of lung disease Family history of malignant neoplasm Family history of obesity Hypertension Social History Social History Smoking packs per day: 1.5 Smoking cigarettes per day: 30.0 Years smoked: 45 Smoking pack-years: 67.50 Smoking status: Current every day smoker Tobacco type: cigarettes Second hand tobacco smoke exposure: Yes Alcohol intake: former Substance use: never Living arrangements: with family Gender identity (if verbalized by the patient): Male Sexual Orientation (if Verbalized by the Patient): Straight or Heterosexual Spiritual care concerns: No Agree to blood products: Yes Anes - Eval Final PreProcedure Day of Procedure 03/31/24 11:53 Patient weight: overweight Heart: regular rate and rhythm Lungs: clear to auscultation Airway: Mallampati scale and special considerations (Edentulous. ) Neurological: alert and oriented Last oral intake: >/= 8 hours ASA classification: III
--- NOTE | 2024-03-31 12:16 | PM.IMHP ---
H&P: HPI History of Present Illness Date/Time: 03/31/24 12:16 Chief Complaint: Non functioning portacatheter Narrative: Pt with hx of Hodgkin's lymphoma treated 24 years ago and he received a bone marrow transplant. He gets an immune boosting infusion every 8 weeks now. He is in remission. His current left subclavian port which has been in place since 1999 recently became nonfunctional and would not flush. Catheter study showed fibrous obstruction of the tip of the catheter. He presents now for removal of the left SC vein port and placement of a new port. Review of Systems Review of Systems: The remainder of the review of systems to include constitutional, HEENT, cardiovascular, respiratory, GI, , integumentary, musculoskeletal, endocrine, immunologic, hematologic, psychiatric, and neurologic are all negative except for which is mentioned above in the HPI. [facility] Past Medical History Medical History Arthritis Bronchitis CAD (coronary artery disease) Chronic back pain COPD (chronic obstructive pulmonary disease) DDD (degenerative disc disease) GERD (gastroesophageal reflux disease) History of chemotherapy Hyperlipidemia Leg fracture Lymphoma Neutropenia Pancreatitis Pneumonia Port-A-Cath in place Ulcer Surgical History Surgical History History of bone marrow transplant Family History Family History Other Depression Family history of alcoholism Family history of arthritis Family history of cardiovascular disease Family history of chronic obstructive pulmonary disease Family history of genitourinary disease Family history of hearing loss Family history of hepatitis Family history of lung disease Family history of malignant neoplasm Family history of obesity Hypertension Social History Social History Smoking packs per day: 1.5 Smoking cigarettes per day: 30.0 Years smoked: 45 Smoking pack-years: 67.50 Smoking status: Current every day smoker Tobacco type: cigarettes Second hand tobacco smoke exposure: Yes Alcohol intake: former Substance use: never Living arrangements: with family Gender identity (if verbalized by the patient): Male Sexual Orientation (if Verbalized by the Patient): Straight or Heterosexual Spiritual care concerns: No Agree to blood products: Yes Meds Home Medications and Allergies Home Medications Medication Instructions Recorded Confirmed Type albuterol sulfate 90 mcg/actuation 90 mcg inhalation PRN PRN 08/09/19 03/27/24 History aerosol inhaler (ProAir HFA) Shortness Of Breath Or Wheezing gabapentin 800 mg tablet 750 mg PO TID 08/09/19 03/27/24 History hydrocodone 10 mg-acetaminophen 1 tablet PO Q4H PRN Pain (Scale 08/09/19 03/27/24 History 325 mg tablet Score 4-6) lansoprazole 15 mg capsule,delayed 15 mg PO BID 08/09/19 03/27/24 History release methocarbamol 750 mg tablet 750 mg PO TID 08/09/19 03/27/24 History tiotropium bromide 18 mcg capsule 18 mcg inhalation DAILY PRN 08/09/19 03/27/24 History with inhalation device (Spiriva Shortness Of Breath Or Wheezing with HandiHaler) roflumilast 500 mcg tablet 500 mcg PO DAILY 03/12/24 03/27/24 History cholecalciferol (vitamin D3) 25 25 mcg PO DAILY 03/27/24 03/27/24 History mcg (1,000 unit) capsule ferrous sulfate 325 mg (65 mg 325 mg PO DAILY 03/27/24 03/27/24 History iron) tablet Allergies Allergy/AdvReac Type Severity Reaction Status Date / Time Penicillins Allergy Severe Other Verified 03/31/24 10:44 iodine Allergy Unknown TOPICAL. Verified 03/31/24 10:44 RASH codeine AdvReac Unknown Vomiting Verified 03/31/24 10:47 Vital Signs Vital Signs - 24 hr 03/31/24 10:50 Temperature 36.4 C L Pulse Rate 94 Blood Pressure 142/89 H Pulse Oximet
[2024-03-31] MEDS: ceFAZolin 2 GM/D5W 50 ML 2 GM/50 ML BAG IVPB (12:41)
--- NOTE | 2024-03-31 12:46 | WPDHPUPDATE1 ---
History and Physical Update Update Date/Time: 03/31/24 12:46 History and Physical has been reviewed, including an updated exam of the patient. There are NO changes in the patient's condition. Risks, benefits, and alternatives have been discussed and questions answered. Patient agrees to proceed with procedure.
[2024-03-31] MEDS: HEPARIN SODIUM LOCK FLUSH 500 UNITS/5 ML VIAL 5000 UNITS IV PUSH (13:22)
[2024-03-31] MEDS: HEPARIN SODIUM 1,000 UNITS/ML VIAL 1000 UNITS IV PUSH (13:26)
[2024-03-31] MEDS: LIDO 1%/EPINEPHRINE 1:100,000 20 ML VIAL 30 ML INFILTRATE (13:27)
[2024-03-31 14:12] VITALS: BP 110/80; PULSE 99; RESP 16; O2SAT 96
[2024-03-31] MEDS: LACTATED RINGERS 1,000 ML 30 ML IV CONT (14:12)
--- NOTE | 2024-03-31 14:19 | W.PM.PROC2 ---
Procedure Note - Detailed Date of Procedure 03/31/24 Pre-op Diagnosis History of Hodgkin's lymphoma, nonfunctioning julia catheter Post-op Diagnosis Same Procedure Performed Placement of right subclavian vein single-lumen port a catheter with intraoperative fluoroscopy. Unsuccessful attempted removal of left subclavian vein julia catheter. Surgeon Norman Ambrocio MD Candy Vendor Jaylan Woodall, [facility] Anesthesia MAC Indications Patient is a 68-year-old gentleman who had Hodgkin's lymphoma was treated almost 25 years ago. He had a julia catheter placed in left subclavian vein in 1999 and has been using that julia catheter for infusions of immune modulating medications. The julia catheter worked until 3 weeks ago when it would no longer flush and infuse. He presented today for removal of the nonfunctioning left subclavian julia catheter in placement of a new right subclavian julia catheter. Findings Due to the chronic scarring around the catheter in the left subclavian vein this was unable to be removed. Upon dissecting down to the proximal part of the catheter attached to the port I was unable to remove the catheter from the left subclavian vein due to what is presumed to be some scar tissue tethering the catheter somewhere underneath the left clavicle or in the mediastinum. I placed much more traction on the catheter then I would usually apply and the catheter stretched due to the advanced age to catheter being over 20 years old I was afraid the catheter would fracture and the distal prior to catheter with an up in the right ventricle requiring retrieval by an interventional radiologist. In addition I was afraid that if the catheter pullout that I would cause a laceration in a vascular structure resulting in massive bleeding into the mediastinum or the left chest region. For this reason the nonfunctioning left subclavian catheter and port were left in place and the incision was closed. A new right subclavian vein julia catheter was placed without difficulty. It aspirated blood and flushed easily. The tip of the catheter appeared to be in the distal superior vena cava on postprocedure chest x-ray. There is no evidence of post procedure iatrogenic pneumothorax. Description of Procedure After informed consent was obtained patient brought to the operating room placed supine position and LMA anesthesia was administered. The bilateral upper anterior neck and chest was then prepped and draped usual sterile fashion. A time-out was then performed correctly identifying the patient as well as procedure to be performed and verified he was given perioperative IV antibiotics. I 1st started by ties the area around the left subclavian port in the left anterior chest region. This was done by injection of 1% lidocaine mixed with 0.5% Marcaine with some epinephrine. An incision was then made over the port and dissection was carried down through the subcutaneous tissues to the hub of the port. I then identified the proximal part of the catheter as it attached to the port and then electrocautery dissected and freed up the proximal part of the catheter. At this point I then placed traction on the catheter to try to remove it from the left subclavian vein. Unusual amount of resistance was encountered and as I pulled harder on the catheter is seen destruction I was afraid that given the old HD catheter being greater than 20 years old acute fracture in the distal part of the catheter go distally into the right side of the heart. I did not feel comfortable removing the catheter because of the excessive force I would need placing the catheter removed. In addition I did not because any vascular injury holding in bleeding into the left chest with the mediastinum with forceful pulling on the catheter. With this in mind I then left the catheter in place and the port in place. A moist sponge was then placed into the incision and then I approached placement of the new julia catheter in the [facility]
--- NOTE | 2024-03-31 14:27 | SUR.PHASEII ---
Per patient he has taken oxycodone in the past with no adverse reaction
[2024-03-31 14:40] VITALS: BP 119/72; PULSE 96; RESP 16; O2SAT 99
[2024-03-31] MEDS: oxyCODONE HCL (*CRX) 5 MG TAB IR PO (14:40)
[2024-03-31 15:05] VITALS: BP 116/73; PULSE 98; RESP 18
== END 2024-03-31 15:15 | disposition home or self-care (01) ==
PROVIDERS: PCP Internal Medicine; Visit Provider Surgery
PROC: (CPT 36561; principal; 2024-03-31 12:00)
DX: Z45.2 Encounter for adjustment and management of vascular access device (principal); D80.9 Immunodeficiency with predominantly antibody defects, unspecified; I25.10 Atherosclerotic heart disease of native coronary artery without angina pectoris; J44.9 Chronic obstructive pulmonary disease, unspecified; K21.9 Gastro-esophageal reflux disease without esophagitis; E78.5 Hyperlipidemia, unspecified; G89.29 Other chronic pain; M54.9 Dorsalgia, unspecified; F17.210 Nicotine dependence, cigarettes, uncomplicated; Z53.8 Procedure and treatment not carried out for other reasons; Z79.51 Long term (current) use of inhaled steroids; Z79.891 Long term (current) use of opiate analgesic; Z94.81 Bone marrow transplant status; Z85.71 Personal history of Hodgkin lymphoma; Z92.21 Personal history of antineoplastic chemotherapy
CPT/HCPCS: 36561; 36590; 77001; A9270; C1788; J0690; J1642; J1644; J1885; J2704; J3010; J7120

== ENCOUNTER 2024-05-08 14:16 | Outpatient (CLI) | payer MEDICARE, MEDICAID, SELFPAY ==
--- NOTE | ~2024-05-08 | XR_ITS ---
Cervical Spine: AP, lateral, open-mouth views Clinical History: Radiculopathy COMPARISON: 03/08/2023 Findings: Stable osseous alignment, with mild reversal normal cervical lordosis. No acute fracture or subluxation. There is moderate to advanced degenerative disc disease at the cervical spine, unchange d. Stable moderate to advanced facet arthropathy, unchanged. Pre-vertebral soft tissues are unremarka ble. Impression: Advanced degenerative spondylosis, stable from prior exam. No acute abnormality evident. Reviewed, dictated and finalized at location M. GER STONE Impression: Advanced degenerative spondylosis, stable from prior exam. No acute abnormality evident.
--- NOTE | ~2024-05-08 | XR_ITS ---
Thoracic spine: Clinical Indication: Radiculopathy AP and lateral views were performed. No fracture is seen. There is normal alignment of the vertebrae. There is moderate to advanced degen erative disc change throughout the thoracic spine.. Paravertebral soft tissues appear normal. Impression: Moderate to advanced diffuse degenerative spondylosis. Reviewed, dictated and finalized at [facility]. BOX ROUTEMAN Impression: Moderate to advanced diffuse degenerative spondylosis.
--- NOTE | ~2024-05-08 | XR_ITS ---
Left Knee Technique: AP, lateral, and sunrise views were obtained. Clinical History: Pain Findings: No acute fracture or dislocation is seen. There is moderate to advanced change of the later al compartment, with joint space narrowing and lateral joint line osteophyte formation. There is mini mal degenerative change of the medial patellofemoral compartment. There is bone infarct versus enchon droma of the distal femur. Old, healed fracture deformities of the proximal tibia and fibula are note d.. Soft tissues are unremarkable. No joint effusion is seen. Impression: No acute abnormality. Degenerative changes, worst in the lateral compartment, as detailed above. Chronic healed fracture deformities of the tibia and fibula. Distal femoral enchondroma versus bone infarct. Reviewed, dictated and finalized at location M. ATIONS PLANNER Impression: No acute abnormality. Degenerative changes, worst in the lateral compartment, as detailed above. Chronic healed fracture deformities of the tibia and fibula. Distal femoral enchondroma versus bone infarct.
--- NOTE | ~2024-05-08 | XR_ITS ---
Lumbosacral Spine: AP, oblique, and lateral views Clinical History: Pain Findings: The normal lordotic curve is maintained. No acute fracture seen. There is minimal grade 1 r etrolisthesis of L3 over L4, and of L4 over L5. There is advanced degenerative disc narrowing at L4-L 5. There is moderate degenerative disc narrowing the remainder of the lumbar spine. There is mild to moderate facet arthropathy diffusely in the lumbar spine. There are bridging anterior osteophytes ext ending from L2 through L5. The sacroiliac joints are normally outlined. Impression: Moderate to advanced degenerative spondylosis, as above. Reviewed, dictated and finalized at location M. DING MACHINE OPERATOR Impression: Moderate to advanced degenerative spondylosis, as above.
== END 2024-05-08 14:17 | disposition home or self-care (01) ==
PROVIDERS: PCP Internal Medicine; Visit Provider Pain Medicine Interventional Pain Medicine
DX: M47.812 Spondylosis without myelopathy or radiculopathy, cervical region (principal); M47.814 Spondylosis without myelopathy or radiculopathy, thoracic region; M47.816 Spondylosis without myelopathy or radiculopathy, lumbar region; M17.12 Unilateral primary osteoarthritis, left knee; M25.861 Other specified joint disorders, right knee
CPT/HCPCS: 72040; 72072; 72110; 73562

== ENCOUNTER 2024-09-10 12:31 | Outpatient (CLI) | payer MEDICARE, MEDICAID, SELFPAY ==
--- NOTE | ~2024-09-10 | CT_ITS ---
CT Scan of the Chest without Contrast: Clinical Indication: Lung cancer screening, nicotine dependence Technique: Contiguous sections were acquired throughout the chest without intravenous contrast. Dose reduction technique was used on this scan by utilizing automated exposure control and iterative recon struction technique. The dose-length product (DLP) was 140.61 mGy-cm. COMPARISON: 08/24/2023 Findings: There is no evidence of any significant mediastinal, hilar or axillary lymphadenopathy. Coronary maksim ry calcifications are present. There is no evidence of pleural or pericardial effusion. There are minimal peripheral chronic interstitial changes in the lungs, especially right upper and lo wer lobes. Calcified left lower lobe granuloma present. Images through the upper abdomen reveal no abnormalities.. Extensive DISH of the thoracic spine. Impression: Lung RADS 2: Benign appearance. 12 month follow-up screening CT advised. Reviewed, dictated and finalized at [facility]. Impression: Lung RADS 2: Benign appearance. 12 month follow-up screening CT advised.
--- OUTSIDE RECORDS SUMMARY | 2024-09-10 13:50 | XMS_ITS | Clinical Summary ---
Author Organization [facility] Address [address], [facility] [address] [place] [address] Phone Care Team Providers Care Windows Systems Admin Name Role Phone Miah Abebe MD Primary Care Provider Jaylan Zambrano DO Unavailable [phone] Allergies No known active allergies Medications lansoprazole (PREVACID) 30 MG CAPSULE DELAYED RELEASE TAKE 1 CAP BY MOUTH DAILY. 30 Cap 3 04/30/2018 Active Active Problems No known active problems Social History Tobacco Use Types Packs/Day Years Used Date Smoking Tobacco: Never Assessed Sex and Gender Information Value Date Recorded Sex Assigned at Not on file Legal Sex Male 7:50 PM CDT Gender Identity Not on file Sexual Orientation Not on file Plan of Treatment Health Maintenance Due Date Last Done Comments Hepatitis C Virus (HCV) Screening 1955 TdaP Immunization 1955 Colonoscopy 2001 Colorectal Cancer Screening 2001 Cologuard 2006 Immunochemical Fecal Occult Blood 2006 Pneumococcal Immunization (5 0+ years) (1 of 1 - PCV) 2006 Zoster Immunization (1 of 2) 2006 PSA Discussion 12/10/2011 Influenza Immunization (#1) 2024 SARS-COV-2 Immunization ( - 2023- season) 2024 03/21/2021, 01/19/2021, 12/22/2020 Respiratory Syncytial Virus (RSV) Immunization (Adult) (1 - 1-dose 75+ series) 12/10/2031 Hepatitis B Immunization Aged Out No longer eligible based on patient's age to complete this topic Meningococcal Immunization (ACWY) Aged Out No longer eligible b ased on patient's age to complete this topic Rotavirus Immunization Aged Out No lo nger eligible based on patient's age to complete this topic Care Teams Windows Systems Admin Relationship Specialty Start Date End Date Miah Abebe MD PCP - General Internal Medicine 05/13/15 Jaylan Zambrano DO Gastroenterology 05/26/15
--- OUTSIDE RECORDS SUMMARY | 2024-09-10 13:50 | XMS_ITS | Data Portability ---
[facility] Organization [facility] Address [address] [place] [address] Care Team Providers Care Assembler Dielectric Heater Name Role Phone ROYA CHOUDHURY Pain Management [phone] AMEE AGGARWAL Agricultural Chemist BARTOLO PAYAN Medical Oncologist VLADIMIR MEIER Neurologist HOLLEY VIDES Fly Rail Operator HARRY MAHAJAN Primary Care Provider [phone] Assessment No assessment recorded. Plan of Treatment Reminders Order Date Submit Date Provider Last Modified By Organization Details Last Modified Time Details Appointments None recorded. Lab rapid SARS CoV 2 Ag, QL IA, respirato ry specimen 2023 024 trip In-Office Order, Internal Use Only DO Not Attach Compendium DO Not Attach Compendium, Do Not Delete/merge, [id number] 12:19:34 rapid flu (A+B) 2023 024 trip In-Office Order, Internal Use Only DO Not Attach Compendium DO Not Attach Compendium, Do Not Delete/merge, [id number] 4 12:19:35 Referral pulmonolo gist referral 2023 024 JO ANN Casarez MD, 4 [facility] , [address], [place], [address], 4 14:52:10 Procedures nebulizer treatment (PROC) - inoffice duoneb treatment 2022 023 [email or web address] Not available 3 17:02:15 Surgeries None recorded. Imaging XR, chest, 2 view [address] (Admitting), [address] [facility] [address], [place], [address], 4 09:17:11 US, echocardi ogram, transthor acic, complete, w/ color flow - need RVSP - assess pulm pressure 2022 023 [facility] (Admitting), [address] [facility] [address], [place], [address], 3 15:02:28 Medication Orders azithromy vazquez 250 mg tablet 2023 024 [place] [address] [place], [address], 5 15:57:27 prednison e 20 mg tablet 2023 024 [place] [address] [place], [address], 5 15:56:49 Solu-Medr ol (PF) 40 mg/mL solution for injection 2023 024 [place] [address] [place], [address], 4 13:42:42 Medrol (Avel) 4 mg tablets in a dose pack 2023 024 [place] [address] [place], [address], 4 15:31:15 azithromy vazquez 250 mg tablet 2023 024 [place] [address] [place], [address], 4 15:31:02 ipratropi um 0.5 mg-albute rol 3 mg (2.5 mg base)/3 mL nebulizat ion soln [address] [place], [place], [address], 4 16:44:38 ipratropi um 0.5 mg-albute rol 3 mg (2.5 mg base)/3 mL nebulizat ion soln [address] [place], [place], [address], 4 16:44:38 doxycycli ne monohydra te 100 mg tablet [address] [place], [place], [address], 4 15:06:51 prednison e 20 mg tablet [address] [place], [place], [address], 4 15:27:46 Patient TargetsNo targets recorded. Patient Instructions Encounter Date Encounter Id Patient Instructions Last Modified By Organization Details Last Modified Time 06/21/2023 [id number] Attending Physician Attestation I personally saw and examined the patient with the resident. I have reviewed the documentation and agree with the history, physical findings, work-up, and medical decision making as recorded. Carrie Gallagher MD [email or web address] Not available 06/21/2023 10:43:25 07/10/2023 [id number] deciding about using medicines to quit smoking [email or web address] Not available 07/10/2023 15:45:49 Quitting Tobacco : Care Instructions ssuthan Not available 07/10/2023 15:45:49 chronic obstructive pulmonary disease (COPD): care instructions ssuthan Not available 07/10/2023 15:45:49 learning about copd and how to prevent lung infections ssuthan Not available 07/10/2023 15:45:49 07/24/2023 [id number] influenza (flu) vaccine: care instructions [email or web address] Not available 07/24/2023 15:45:47 11/30/2023 [id number] On the date of this encounter, I saw and examined the patient, personally verifying the mcqueen and critical findings in the resident s note. I reviewed and agree with the resident/fellow s findings and plan. ~MD Janelle [email or web address] Not available 11/30/2023 12:09:29 07/24/2024 [id number] A healthy lifestyle: care instructions [email or web address] Not available 07/24/2024 16:30:10 learning about high blood pressure [email or web address] Not available 07/24/2024 16:30:10 I saw the patien t with the resident. I agree with the resident's assessment and plan as documented Janene Lopez MD [email or web address] Not available 07/24/2024 16:27:56 Reason for Referral Agricultural Chemist Referral for C hronic obstructive pulmonary disease Referring Physician: Den Denny, Internal Medicine, Encounter Date: 07/10/2023 Results Created Date Observation Date Name Description Value Unit Range Abnormal Flag Note LastModifiedBy Organization Detail LastModifiedTime 11/30/1911/30/2023 rapid flu (A+B) Flu A negati ve Not Available In-Office Order Internal Use Only DO Not Attach Compendium DO Not Attach Compendium, Do Not Delete/merge, [id number] 11/30/2023 11:16:35 11/30/19 24 11/30/2023 rapid flu (A+B) Flu B negati ve Not Available In-Office Order Internal Use Only DO Not Attach Compendium DO Not Attach Compendium, Do Not Delete/merge, [id number] 11/30/2023 11:16:35 11/30/19 24 11/30/2023 rapid SARS CoV 2 Ag, QL IA, respi rator y speci men rapid SARS CoV 2 Ag, QL IA, respiratory specimen negati ve Not Available In-Office Order Internal Use Only DO Not Attach Compendium DO Not Attach Compendium, Do Not Delete/merge, [id number] 11/30/2023 11:16:24 06/28/20 23 US, echoc ardio gram, trans thora cic, compl ete, w/ color flow No observ ation record ed. [facility] (Lab) [address] [place] [address] [place] [address], [address], 07/04/2023 13:44:28 08/27/19 24 08/24/2023 CT, chest , w/o contr ast No observ ation record ed. [address], [address], 08/28/2023 10:24:44 03/20/20 24 03/20/2024 fluor oscop y (PROC ) No observ ation record ed. [place] [address], [place], [address], 03/31/2024 10:03:48 03/31/20 24 03/31/2024 XR, chest , 2 view No observ ation record ed. [place] [address], [place], [address], 04/06/2024 20:16:21 03/31/20 24 03/31/2024 Inser tion of tunne led centr ally inser melanie centr al venou s acces s devic e (PROC ) No observ ation record ed. [place] [address], [place], [address], 04/06/2024 20:16:13 05/09/20 24 05/08/2024 XR, cervi may spine , 2 or 3 view No observ ation record ed. [place] [address], [place], [address], 05/13/2024 14:58:19 05/09/20 24 05/08/2024 XR, thora cic spine , 3 view No observ ation record ed. [facility] [address] [facility] [address], [place], [address], 05/13/2024 14:58:19 05/09/20 24 05/08/2024 XR, lumba r spine No observ ation record ed. [facility] [address] [facility] [address], [place], [address], 05/13/2024 14:58:20 05/09/20 24 05/08/2024 XR, knee, 3 view No observ ation record ed. [facility] [address] [facility] [address], [place], [address], 05/13/2024 14:58:20 Result Notes None recorded. Problems Name Problem SNOMED Code Status Onset Date Resolution Date Notes Provider Name and Address Organization Details Recorded Time History of Hodgkin lymphoma 047534937 Active 2019 Den Denny MD Attn: Accounting, [address] [place], [address], [place] [facility] 0 14:57:52 Chronic low back pain 264032865 Active 2019 Den Denny MD Attn: Accounting, [address] [place], [address], [place] [facility] 0 14:59:59 Chronic obstructive pulmonary disease 43919252 Active 2019 Den Denny MD Attn: Accounting, [address] [place], [address], [place] [facility] 0 15:00:03 Tobacco dependence syndrome 74539192 Active 2019 Den Denny MD Attn: Accounting, [address] [place], [address], [place] [facility] 0 15:00:42 Multiple nodules of lung 162113105 Active 2019 Den Denny MD Attn: Accounting, [address] [place], [address], [place] [facility] 0 13:43:18 Body mass index 30+ - obesity 239978364 Active 2020 Den Denny MD Attn: Accounting, [address] [facility], [place], [address], [place] [facility] 1 16:14:50 Migraine 60427757 Active 2020 Den Denny MD Attn: Accounting, [address] [facility], [place], [address], [place] [facility] 1 16:23:59 Vitamin D deficiency 61658625 Active 2020 Den Denny MD Attn: Accounting, [address] [place], [address], [place] [facility] 1 14:21:28 Mixed hypercholest erolemia and hypertriglyc eridemia 544702503 Active 2020 Den Denny MD Attn: Accounting, [address] [place], [address], [place] [facility] 1 14:21:29 Mean corpuscular volume above reference range 571609688 Active 2021 Den Denny MD Attn: Accounting, [address] [place], [address], [place] [facility] 2 13:25:16 Hypertriglyc eridemia 993974991 Active 2021 Den Denny MD Attn: Accounting, [address] [place], [address], [place] [facility] 2 13:26:43 Gastroesopha geal reflux disease without esophagitis 012156241 Active 2021 Den Denny MD Attn: Accounting, [address] [place], [address], [place] [facility] 2 10:15:02 Esophageal dysmotility 915983352 Active 2022 Den Denny MD Attn: Accounting, [address] [facility], [place], [address], [place] [facility] 3 14:14:40 Iron deficiency anemia 68387427 Active 2022 Den Denny MD Attn: Accounting, [address] [facility], [place], [address], [place] [facility] 3 15:48:54 History of migraine 454651194 Active 2022 Den Denny MD Attn: Accounting, [address] [facility], [place], [address], [place] [facility] 3 14:46:49 Acute exacerbation of chronic obstructive pulmonary disease 895906927 Active 2022 Kelly Siddiqui MD Attn: Accounting, [address] [facility], [place], [address], [place] [facility] 3 11:03:44 Problem Notes None recorded. Procedures Surgical History Date Name Laterality Status Provider Name and Address Organization Details Recorded Time bone graft completed HÉCTOR Ald[place] 05/17/2020 14:20:32 transplantation of bone marrow completed Starla Shine Daniel [place] [facility] 05/17/2020 14:38:19 repair of musculotendinous cuff of shoulder completed HÉCTOR [place] [facility] 05/17/2020 14:38:49 endoscopy completed Nieves Mejias [place] [facility] 09/01/2022 12:18:12 Imaging Results Imaging Date Name Status LastModified by Organiz ation Details LastModified Time 06/28/2023 US, echocardiogram, transthoracic, complete, w/ color flow completed [facility] (Lab) [address] [place] [address], [address], 07/04/2023 13:44:28 08/24/2023 CT, chest, w/o contrast completed [address], [address], 08/28/2023 10:24:44 03/20/2024 fluoroscopy (PROC) completed [address] [place] [address], [address], 03/31/2024 10:03:48 03/31/2024 XR, chest, 2 view completed [address], [address], 04/06/2024 20:16:21 03/31/2024 Insertion of tunneled centrally inserted central venous access device (PROC) completed [address], [address], 04/06/2024 20:16:13 05/08/2024 XR, cervical spine, 2 or 3 view completed [address], [address], 05/13/2024 14:58:19 05/08/2024 XR, thoracic spine, 3 view completed [address], [address], 05/13/2024 14:58:19 05/08/2024 XR, lumbar spine completed [address], [address], 05/13/2024 14:58:20 05/08/2024 XR, knee, 3 view completed [address], [address], 05/13/2024 14:58:20 Procedure Notes None recorded. Medical Equipment None Reported. Allergies Allergen ID Allergen Name Allergen Category Reaction Reaction Severity Criticality Documentation Date Start Date Code Code System Note Provider Name and Address Organization Details Recorded Time 474524 Product containin g penicilli n (product) medicatio n Not available Not available Not available 05/17/2020 43165 8001 SNOMED COMA Not Available Not Available Not Available 897455 iodine medicatio n Not available Not available Not available 05/17/2020 5933 RxNorm Not Available Not Available Not Available Medications Name Sig Start Date Stop Date Status Note LastModified by Organization Details LastModified Time atorvastat in 40 mg tablet Take 1 tablet every day by oral route at dinner. active Not Available Not Available No t Available atorvastat in 20 mg tablet TAKE 1 TABLET EVERY DAY BY ORAL ROUTE AT DINNER. 10/22 completed Not Available Not Available Not Available ipratropiu m 0.5 mg-albuter ol 3 mg (2.5 mg base)/3 mL nebulizati on soln Inhale by nebuliza tion route for 15 days. 08/21 completed Not Available Not Available Not Available albuterol sulfate 2.5 mg/3 mL (0.083 %) solution for nebulizati on Inhale 3 mL 3 times a day by nebuliza tion route as needed for 30 days. 2023 active Not Available Not Available Not Avai lable azithromyc in 250 mg tablet TAKE 2 TABLETS (500 MG) BY ORAL ROUTE ONCE DAILY FOR 1 DAY THEN 1 TABLET (250 MG) BY ORAL ROUTE ONCE DAILY FOR 4 DAYS active pt is not taking 07/24/24 Not Available Not Available Not Available sumatripta n 100 mg tablet TAKE ONE TABET BY MOUTH EVERY TWO HOURS NEEDED SOON FEEL HEADACHE IS COMING. NO MORE THAN 2 TABLETS IN 24 HOURS. active Not Available Not Available No t Available sumatripta n 25 mg tablet TAKE 1 FOR MIGTRAIN E MAY REPEAT IN 2 HRS BUT NORE THAN 3/24 HRS 03/03 completed Not Available Not Available Not Available prednisone 20 mg tablet Take 1 tablet twice a day by oral route for 4 days. active pt is not taking 07/24/24 Not Available Not Available Not Available sumatripta n 50 mg tablet TAKE 1 FOR MIGTRAIN E MAY REPEAT IN 2 HRS BUT MORE THAN 3/24 HRS 03/03 completed Not Available Not Available Not Available topiramate 25 mg tablet TAKE 1 TABLET TWICE A DAY BY ORAL ROUTE. 01/22 completed Not Available Not Available Not Available sulfametho xazole 800 mg-trimeth oprim 160 mg tablet Take 1 tablet every 12 hours by oral route for 7 days. 09/01 completed Not Available Not Available Not Available hydrocodon e 10 mg-acetami nophen 325 mg tablet TAKE 1 TABLET BY MOUTH FOUR TIMES DAILY NEEDED active Not Available Not Available No t Available doxycyclin e monohydrat e 100 mg tablet Take 1 tablet twice a day by oral route for 5 days. 07/09 completed Not Available Not Available Not Available methocarba mol 750 mg tablet TAKE ONE TABLET BY MOUTH EVERY EIGHT TO TWELVE HOURS NEEDED active Not Available Not Available No t Available ascorbic acid (vitamin C) 500 mg tablet Take 1 tablet twice a day by oral route. 2022 active Not Available Not Available Not Avai lable hydrocodon e 7.5 mg-acetami nophen 325 mg tablet 05/08 completed Not Available Not Available Not Available ferrous sulfate 325 mg (65 mg iron) tablet Take 1 tablet twice a day by oral route after meals. 2022 active pt is not taking 07/24/24 Not Available Not Available Not Available podofilox 0.5 % topical solution APPLY BY TOPICAL ROUTE 2 TIMES PER DAY FOR 3 DAYS THEN STOP FOR 4 DAYS. (REPEAT 7DAY CYCLE UNTIL NO VISIBLE WART TISSUE/M AX OF FOUR CYCLES) 10/20 completed Not Available Not Available Not Available gabapentin 300 mg capsule TAKE ONE CAPSULE BY MOUTH THREE TIMES A DAY NEEDED active Not Available Not Available No t Available omeprazole 20 mg capsule,de layed release TAKE 1 CAPSULE BY MOUTH DAILY. 2023 active Not Available Not Available Not Avai lable ergocalcif chloé (vitamin D2) 1,250 mcg (50,000 unit) capsule 08/05 completed Not Available Not Available Not Available methylpred nisolone 4 mg tablets in a dose pack Take as directed with meal 07/24 completed Not Available Not Available Not Available albuterol sulfate HFA 90 mcg/actuat ion aerosol inhaler Inhale 2 puffs every 4 hours by inhalati on route as needed. active Not Available Not Available No t Available clotrimazo le 1 % topical cream APPLY TO THE AFFECTED AND SURROUND ING AREAS OF SKIN BY TOPICAL ROUTE 2 TIMES PER DAY IN THE MORNING AND EVENING 06/23 completed Not Available Not Available Not Available calcitriol 0.25 mcg capsule 09/20 completed Not Available Not Available Not Available Fish Oil Concentrat e 1,000 mg capsule Take 1 capsule every day by oral route at dinner. 2020 active Not Available Not Available Not Avai lable Vitamin D3 25 mcg (1,000 unit) tablet Take 1 tablet every day by oral route. 09/01 completed Not Available Not Available Not Available Spiriva with HandiHaler 18 mcg and inhalation capsules Inhale 1 capsule every day by inhalati on route for 30 days. active Not Available Not Available No t Available hydrocodon e 10 mg-acetami nophen 300 mg tablet Take 1 tablet 3 times a day by oral route. 03/03 completed Pain Mx Not Available Not Available Not Available fenofibrat e 160 mg tablet TAKE ONE (1) TABLET EVERY DAY BY ORAL ROUTE AT DINNER. active Not Available Not Available No t Available Prevacid OTC active Not Available Not Avai lable Not Available Symbicort 160 mcg-4.5 mcg/actuat ion HFA aerosol inhaler Inhale 2 puffs twice a day by inhalati on route for 30 days. active Not Available Not Available No t Available Vitamin D3 50 mcg (2,000 unit) tablet Take 1 tablet every day by oral route. 09/01 completed Not Available Not Available Not Available Solu-Medro l (PF) 40 mg/mL solution for injection Take 120 mg every day by injectio n route as directed for 1 day. 2023 active Not Available Not Available Not Avai lable Spiriva Respimat 18 mcg 05/17 completed Not Available Not Available Not Available albuterol sulf 90 mcg/actuat ion breath activated powder inhaler,se nsor Inhale 2 puffs every 4 hours by inhalati on route. 05/17 completed Not Available Not Available Not Available Ubrelvy 50 mg tablet 10/21 completed Not Available Not Available Not Available [facility] mg disintegra ting tablet active Not Available Not Available Not Available Fluzone Quad (PF) 60 mcg (15 mcg x 4)/0.5 mL IM syringe PHARMACY ADMINIST ERED 08/05 completed Not Available Not Available Not Available Vitals Date Recorded Body height Body mass index (BMI) Body weight Body temperature Heart rate Systolic blood pressure Diastolic blood pressure Provider Name and Address Organization Details Last Updated DateTime 3 167.64 cm 32.5 kg/m2 47490.4 2 g 96.1 [degF] 110 /min 161 mm[Hg] 94 mm[Hg] Rachael Wong MA [facility] 3 10:24:54 Date Recorded Body height Body mass index (BMI) Body weight Body temperature Respiratory rate Heart rate Oxygen saturation Oxygen saturation in Arterial blood by Pulse oximetry Provider Name and Address Organization Details Last Updated DateTime 4 167.64 cm 33.8 kg/m2 11047.6 g 97.4 [degF] 20 /min 85 /min 94 % 94 % Nieves Mejias [facility] 4 15:24:21 Date Recorded Systolic blood pressure Diastolic blood pressure Provider Name and Address Organization Details Last Updated DateTime 07/10/2023 138 mm[Hg] 88 mm[Hg] Den Denny MD Attn: Accounting,[address] [place], [address], [facility] 07/10/2023 15:38:23 Date Recorded Body height Body mass index (BMI) Body weight Body temperature Oxygen saturation Oxygen saturation in Arterial blood by Pulse oximetry Systolic blood pressure Diastolic blood pressure Provider Name and Address Organization Details Last Updated DateTime 4 167.64 cm 32.5 kg/m2 87071.7 8 g 97.4 [degF] 99 % 99 % 123 mm[Hg] 81 mm[Hg] Nieves Mejias [facility] 4 15:33:11 Date Recorded Heart rate Respiratory rate Provider N jhon and Address Organization Details Last Updated DateTime 07/24/2023 94 /min 16 /min Den Denny MD Attn: Accounting,[address] [place], [address], [facility] 07/24/2023 15:38:46 Date Recorded Body height Body mass index (BMI) Body weight Body temperature Respiratory rate Heart rate Oxygen saturation Oxygen saturation in Arterial blood by Pulse oximetry Systolic blood pressure Diastolic blood pressure Provider Name and Address Organization Details Last Updated DateTime 4 167.64 cm 30.5 kg/m2 01453.0 1 g 97.9 [degF] 20 /min 92 /min 94 % 94 % 128 mm[Hg] 86 mm[Hg] Pushpa GarlandsYOGESH [place] 4 11:15:17 Date Recorded Body height Body mass index (BMI) Body weight Respiratory rate Body temperature Oxygen saturation Oxygen saturation in Arterial blood by Pulse oximetry Heart rate Systolic blood pressure Diastolic blood pressure Systolic blood pressure Diastolic blood pressure Provider Name and Address Organization Details Last Updated DateTime 5 167.64 cm 30.2 kg/m2 37085.2 8 g 18 /min 97.8 [degF] 99 % 99 % 95 /min 148 mm[Hg] 98 mm[Hg] 148 mm[Hg] 86 mm[Hg] HÉCTOR Rachel [place] 5 16:21:22 Social History Question Answer Notes LastModified by Organizat ion Details LastModified Time Tobacco Smoking Status Current Every Day Smoker Starla Rl HÉCTOR null[place] 05/17/2020 14:15:55 Do You Have An Advance Directive? No Information not available 05/17/2020 What Is Your Level Of Alcohol Consumption? None Information not available 05/17/2020 Are You Blind Or Do You Have Difficulty Seeing? No Information not available 03/03/2021 What Is Your Level Of Caffeine Consumption? Moderate Information not available 04/01/2021 How Much Tobacco Do You Chew? None Information not available 05/17/2020 In The 14 Days Before Symptom Onset, Have You Had Close Contact With A Laboratory-confir med COVID-19 While That Case Was Ill? No [email or web address] Information not available 06/18/2020 In The 14 Days Before Symptom Onset, Have You Had Close Contact With A Person Who Is Under Investigation For COVID-19 While That Person Was Ill? No [email or web address] Information not available 06/18/2020 Have You Been To An Area Known To Be High Risk For COVID-19? No Information not available 05/17/2020 Are You Currently Employed? No Information not available 09/20/2020 Are You Deaf Or Do You Have Serious Difficulty Hearing? Yes Information not available 03/03/2021 What Type Of Diet Are You Following? REGULAR Information not available 05/17/2020 Which Illicit Or Recreational Drugs Have You Used? NONE Information not available 05/17/2020 Do You Or Have You Ever Used E-cigarettes Or Vape? Never Used Electronic Cigarettes Information not available 05/17/2020 What Is Your Occupation? Retired/ Disability Information not available 04/01/2021 Are There Any Guns Present In Your Home? No Information not available 05/17/2020 Hard Of Hearing Or Deaf In One Or Both Ears? Yes Tone Deaf Information not available 05/17/2020 Legally Blind In One Or Both Eyes? No Information no t available 05/17/2020 Marital Status Informatio n not available 05/17/2020 Do You Have A Medical Power Of Pupil Personnel Services Director? No Information not available 04/01/2021 What Was The Date Of Your Most Recent Tobacco Screening? 07/24/2024 Information not available 07/24/2024 How Many Children Do You Have? 3 Information not available 04/01/2021 Performs Monthly Self-breast Exam? No Information no t available 05/17/2020 What Is Your Relationship Status? Information not available 04/01/2021 Do You Use Your Seat Belt Or Car Seat Routinely? Yes Information not available 08/11/2022 Seat Belts Used Routinely Yes Information not available 05/17/2020 Smoke Alarm In Home Yes Information not available 05/17/2020 Do You Have Smoke And Carbon Monoxide Detectors In Your Home? Yes Information not available 10/21/2021 At What Age Did You Start Smoking Tobacco? 10 Information not available 05/17/2020 Are You Passively Exposed To Smoke? Yes [email or web address] Information no t available 09/20/2020 Do You Or Have You Ever Used Smokeless Tobacco? Never Used Smokeless Tobacco Information not available 05/17/2020 How Much Tobacco Do You Smoke? 1 PPD Pack And A Half 07/24/24 Information not available 07/24/2024 General Stress Level Low [email or web address] Information not available 06/18/2020 Do You Feel Stressed (tense, Restless, Nervous, Or Anxious, Or Unable To Sleep At Night)? [id number] Information not available 04/01/2021 Do You Use Any Illicit Or Recreational Drugs? No Information not available 04/01/2021 Do You Use Sunscreen Routinely? Yes Information not available 05/17/2020 Has Tobacco Cessation Counseling Been Provided? Yes Information not available 09/01/2022 On What Date Was Tobacco Cessation Counseling Provided? 07/24/2024 Information not available 07/24/2024 Do You Or Have You Ever Used Any Other Forms Of Tobacco Or Nicotine? No [email or web address] Information not available 09/20/2020 Sex: Male Functional Status Question Answer Note LastModified by Organization D etails LastModified Time Are you able to care for yourself? Yes Information n ot available 03/03/2021 What is your exercise level? None Information not available 05/17/2020 Mental Status None recorded. Family History Relationship Description Onset Age of this Age Resolved Age Notes LastModified by Organization Details LastModified Time Mother Alcohol abuse sebyrma Not available 2019 14:34:52 Mother Chronic lung disease sebyrma Not available 2019 14:35:18 Father Chronic lung disease sebyrma Not available 2019 14:35:18 Father Family history of malignant neoplasm sebyrma Not available 2019 14:35:47 Father Heart disease sebyrma Not available 2019 14:35:55 Father Malignant tumor of colon ssuthan Not available 2019 15:02:11 Brother Alcohol abuse sebyrma Not available 2019 14:35:25 Sister Myocardial infarction ssuthan Not available 05/17 15:02:23 Notes:07/24/24 Medical History Condition Response Coronary Artery Disease N Gout N Other N Atrial Fibrillation N High Blood Pressure N Thyroid Disease N Emphysema N Depression N COPD Y Blood Clots N Congenital Heart Disease N Pneumonia Y Lung Mass N Sinusitis N Anxiety Disorder N Cystic Fibrosis N Muscle, Joint, or Bone Problems Y Arthritis Y Blood Clot N Acid Reflux (GERD) Y Cancer Y Stroke N High Cholesterol Y Liver Disease N Headaches N Kidney Disease N Allergies/Hayfever Y Thyroid Problems N Kidney or Bladder Problems N GI Problems Y NSAID Use Y Skin Problems N Anemia N Multiple Sclerosis N Heart Attack (DE) N Mental Illness N Diabetes N Seizures/Epilepsy N Tuberculosis N Diverticulitis N Asthma N Allergies N Sleep Apnea N Hepatitis N Heart Disease N Bronchitis N Pulmonary Embolism N Hypertension N Heart Failure N Osteoporosis N Immunizations Vaccine Type Date Status Note Provider Nam e and Address Organization Details Recorded Time Influenza, split virus, quadrivalent, preservative 0 completed Den Denny MD Attn: Accounting,[address] [place], [place], [address] [place] [address], [place] [facility] 05/17/2020 15:00:53 COVID-19, mRNA, LNP-S, PF, 100 mcg/0.5mL dose or 50 mcg/0.25mL dose 1 completed CARRIE GALLAGHER MD Attn: Accounting,[address] [place], [place], [address] [place] [address], [place] [facility] 06/29/2023 10:21:35 COVID-19, mRNA, LNP-S, PF, 100 mcg/0.5mL dose or 50 mcg/0.25mL dose 1 completed CARRIE GALLAGHER MD Attn: Accounting,[address] [place], [place], [address] [place] [address], [place] [facility] 06/29/2023 10:21:35 COVID-19, mRNA, LNP-S, PF, 100 mcg/0.5mL dose or 50 mcg/0.25mL dose 1 completed CARRIE GALLAGHER MD Attn: Accounting,[address] [place], [address] [place] [address], [place] [facility] 06/29/2023 10:21:35 Influenza, split virus, quadrivalent, PF 0 completed CARRIE GALLAGHER MD Attn: Accounting,[address] [place], [address] [place] [address], [place] [facility] 06/29/2023 10:21:35 influenza, unspecified formulation 7 completed CARRIE GALLAGHER MD Attn: Accounting,[address] [place], [address] [place] [address], [place] [facility] 06/29/2023 10:22:03 Influenza, split virus, quadrivalent, preservative 1 completed Nieves Mejias [place] null, [place] [facility] 06/23/2021 16:59:40 Influenza, high-dose, quadrivalent, PF 2 completed Den Denny MD Attn: Accounting,[address] [facility], [place], [address], [facility] - [facility] 05/04/2022 12:43:03 Pneumococcal conjugate PCV20, polysaccharide [id number] conjugate, adjuvant, PF 2 completed Den Denny MD Attn: Accounting,[address] [place], [address], [facility] - [facility] 05/04/2022 12:43:03 Influenza, high-dose, quadrivalent, PF 4 completed Den Denny MD Attn: Accounting,[address] [place], [address], [facility] - [facility] 07/24/2023 16:19:46 Past Encounters Encounter ID Performer Location Encounter Start Date Encounter Closed Date Diagnosis/Indication Diagnosis SNOMED-CT Code Diagnosis ICD10 Code Diagnosis Note [id number] Den Denny MD [place] 14 IM 4 [facility] [address] [place] [address] 05/17/2020 08:38:42 05/18/2020 09:32:24 Chronic obstructive pulmonary disease 81212948 J44.9 Will add symbicort to control his breathing betterCutb ack and stop smoking History of Hodgkin lymphoma 050072583 Z85.71 S/p BM transplant in 2003, No oncology onboard, refer to one for further management /care/surv eilance Chronic low back pain 27 4110646 M54.5 With disc involvent per the ptUnder care by [facility]. Gastroesop hageal reflux disease without esophagitis 987397191 K21.9 Loose weight , avoid soda, spicy stuff, Stop smokingUse medication as prescribed .On OTC prevecid Tobacco de pendence syndrome 74250494 F17.200 Recommend to slow demond and quit at the earliest- 1.5 PPD Long-term drug therapy 072107124 Z79.899 Nicotine dependence 5629 4008 Z87.573 [id number] [facility] (Adult [facility]) [address] [place] [address] 06/18/2020 14:44:06 06/21/2020 18:04:50 Chronic obstructive pulmonary disease 21856362 J44.9 Continue MDI, MDI teaching. Will order new PFT Radiologic infiltrate of lung 262018682 R91.8 LDCT 06/12/19: tree in bud opacities RML, possibly underlying infectious process. Will repeat chest Ct in 3 months History of Hodgkin lymphoma 028957854 Z85.71 He is seeing oncologist Multiple n odules of lung 919432949 R91.8 LDCT 06/12/20: nodule measuring up to 6mm, tree in bud opacities RML, possibly underlying infectious process [id number] MD Alexia Cardenas 14 IM 4 [facility] [address] [place] [address] 08/05/2020 09:31:59 08/06/2020 09:26:06 Chronic obstructive pulmonary disease 06587691 J44.9 Will add symbicort to control his breathing betterCutb ack and stop smoking08/05Does see pulmo6 min walk test and PFTs order by the provider.s till has to use rescue inhaler somewhat moreStop smoking. Multiple n odules of lung 485964830 R91.8 B/l will refer to Pulmo for f/u and Mx.08/05/20D oes see Pulmo Chronic low back pain 27 7796375 M54.5 With disc involvent per the ptUnder care by [facility]. History of Hodgkin lymphoma 680411593 Z85.71 S/p BM transplant in 2003, No oncology onboard, refer to one for further management /care/surv eilance08/05Did see Oncologist and had kristi in Rx and needs to do labs in 3 months per the pt Tobacco de pendence syndrome 25934701 F17.200 Recommend to slow demond and quit at the earliest- 1.5 PPD Screening for malignant neoplasm of colon 862374634 Z12.11 Long-term drug therapy 938835968 Z79.434 [id number] [facility] ([facility]ult [facility]) [address] [place] [address] 09/20/2020 14:28:23 09/23/2020 11:57:48 Chronic obstructive pulmonary disease 40572565 J44.9 Continue MDI/DPI- Symbicort 160 mcg and spiriva, albuterol as needed, nebs Radiologic infiltrate of lung 214598232 R91.[address] 07/26/20: impression : usual interstiti al pneumonia. LDCT 06/12/20: nodule measuring up to 6 mm, tree in bud opacities RML, possibly underlying infectious process Bronchosco py ILD vs infection History of Hodgkin lymphoma 668845983 Z85.71 He is seeing oncologist Smokes tobacco daily 449 221910 Z72.0 tobacco : 1.5 ppd, 55 years . Smoking cessation [id number] MD Alexia Cardenas 14 IM 4 [facility] [address] [place] [address] 12/27/2020 15:41:30 12/28/2020 21:50:49 Chronic obstructive pulmonary disease 57252430 J44.9 Will add symbicort to control his breathing betterCutb ack and stop smoking08/05Does see pulmo6 min walk test and PFTs order by the provider.s till has to use rescue inhaler somewhat moreStop smoking. min walk: no supplement al O2 required at this timePFT 08/25/20FVC : 77 %, FEV1: 61 %... 17 % change post broncho, FEV1/FVC ratio:79 %, T %, RV:184 %, DLCO: 73 % +response to BD, severe airtrappin g wih hyperinfla tion notedRecom mend to quit smoking. History of Hodgkin lymphoma 055476985 Z85.71 S/p BM transplant in 2003, No oncology onboard, refer to one for further management /care/surv eilance08/05Did see Oncologist and had gamaglobul in Rx and needs to do labs in 3 months per the pt12/27/20R ecommend to f/uDid labs recently Multiple n odules of lung 098368221 R91.8 B/l will refer to Pulmo for f/u and Mx.08/05/20D oes see Pulmolung biopsy neg for malignancy Tobacco de pendence syndrome 52931303 F17.200 Recommend to slow down and quit at the earliest- 1.5 PPD Chronic low back pain 27 7513579 M54.5 With disc involvemen t per the ptUnder care by [facility].12/27/20 Recent X ray- severe lumbar spondylosi s with progressio n @ L4-5 Long-term drug therapy 437789842 Z79.899 Body mass index 30+ - obesity 803725140 Z68.33 Recommend to loose weight with diet control and exercise. Migraine 37777951 G43.90 9 L/sidedTry sumatripta nAvoid known stimulants [id number] MD Alexia Cardenas 14 IM 4 [facility] [address] [place] [address] 01/13/2021 08:42:44 01/14/2021 13:40:41 Mixed hypercholesterolemia and hypertriglyceridemia 157505203 E78.2 TC 345, LDL 226, TG 309Cutback soda, hamburgert torsten atorvastat in also OTC fish oil capsF/u with labs in 3 months Vitamin D deficiency 347 64661 E55.9 Take daily D3 Liver enzy mes level above reference range 523669057 R74.01 Probably due to NASHWill f/u in 3 months also r/o hepatitis by thenloose weightCont rol cholestero l better Migraine 19812051 G43.90 9 L/sidedTry sumatripta nAvoid known stimulants 01/13/21Inc rease sumatripta n to 50mg PRNAvoid known triggers. Tobacco de pendence syndrome 69174191 F17.200 Recommend to slow down and quit at the earliest- 1 PPD [id number] MD Alexia Cardenas 14 IM 4 [facility] [address] [place] [address] 03/03/2021 11:20:33 03/04/2021 06:41:30 Genital warts 410608420 A63.0 Use the medication as directedif no better call for referral to Urologist Tobacco de pendence syndrome 46415482 F17.200 Recommend to slow down and quit at the earliest- 1 PPD Migraine 73690781 G43.90 9 L/sidedTry sumatripta nAvoid known stimulants 01/13/21Inc rease sumatripta n to 50mg PRNAvoid known triggers.Imitr ex not helpingTry ubrelvy if covered, also refer to Neurologis suri low dose topiramate Tinea cruris 460470082 B 35.6 Use the cream- may start after Rx for warts completedK eep the area dry [id number] [facility], [facility] (Adult Med) [address] [place] [address] 04/01/2021 15:20:10 04/05/2021 10:36:14 Radiologic infiltrate of lung 045441879 R91.[address] 07/26/20: impression : usual interstiti al pneumonia. LDCT 06/12/20: nodule measuring up to 6 mm, tree in bud opacities RML, possibly underlying infectious process Chronic ob structive pulmonary disease 59440115 J44.9 Continue MDI/DPI- Symbicort 160 mcg and spiriva, albuterol as needed, nebs History of Hodgkin lymphoma 753466100 Z85.71 Followed by oncologist Smokes tobacco daily 449 228754 Z72.0 tobacco : 1.5 ppd, 55 years . Smoking cessation discussedC ontinue annual LDCT screening 06/2021 Solitary n odule of lung 141318234 R91.1 LDCT 06/12/20: nodule measuring up to 6 mm Continue surveillan ce Reactive a irway disease 5172704029 06 J45.909 Continue MDI [id number] MD Aleixa Cardenas 14 IM 4 [facility] [address] [place] [address] 06/23/2021 15:26:50 06/27/2021 12:30:12 Chronic obstructive pulmonary disease 48850316 J44.9 Will add symbicort to control his breathing betterCutb ack and stop smoking08/05Does see pulmo6 min walk test and PFTs order by the provider.s till has to use rescue inhaler somewhat moreStop smoking. min walk: no supplement al O2 required at this timePFT 08/25/20FVC : 77 %, FEV1: 61 %... 17 % change post broncho, FEV1/FVC ratio:79 %, T %, RV:184 %, DLCO: 73 % +response to BD, severe airtrappin g wih hyperinfla tion notedRecom mend to quit smoking.on symbicort and albuterol per Pulmo also spiriva Mixed hypercholesterolemia and hypertriglyceridemia 297016243 E78.2 TC 345, LDL 226, TG 309Cutback soda, hamburgert torsten atorvastat in also OTC fish oil capsF/u with labs in 3 months Migraine 24155324 G43.90 9 L/sidedTry sumatripta nAvoid known stimulants 01/13/21Inc rease sumatripta n to 50mg PRNAvoid known triggers.Imitr ex not helpingTry ubrelvy if covered, also refer to Neurologis suri low dose topiramate 06/23/21Pe r , on sumatripta n 100 + topiramate , latter not covered, will send it again History of Hodgkin lymphoma 893244426 Z85.71 S/p BM transplant in 2003, No oncology onboard, refer to one for further management /care/surv eilance08/05Did see Oncologist and efraín berry in Rx and needs to do labs in 3 months per the pt12/27/20R ecommend to f/uDid labs [id number] /23/21Ct all Tobacco de pendence syndrome 63865558 F17.200 Recommend to slow down and quit at the earliest- 1 PPD Body mass index 30+ - obesity 698733518 Z68.33 Recommend to loose weight with diet control and exercise. Vitamin D deficiency 347 97882 E55.9 Take daily D3 Multiple n odules of lung 259299658 R91.8 B/l will refer to Pulmo for f/u and Mx.08/05/20D oes see Pulmolung biopsy neg for malignancy 06/23/21Un jonathon care by Pulmostop smoking Needs infl uenza immunization 340470449 Z28.3 no issue before Long-term drug therapy 349346305 Z79.617 [id number] MD Aleixa Cardenas 14 IM 4 [facility] [place] [address] 09/16/2021 14:03:36 09/19/2021 09:53:21 Acute upper respiratory infection 31773545 J06.9 Hydrate well. Use humidifier Take medication as prescribed , If getting worse come in / go to [facility] to stop smoking Tobacco de pendence syndrome 35841761 F17.200 Recommend to slow down and quit at the earliest- 1 PPD [id number] Den Denny MD [place] 14 IM 4 [facility] [address] [place] [address] 10/21/2021 14:20:48 10/24/2021 13:46:55 Chronic obstructive pulmonary disease 14374329 J44.9 6 min walk: no supplement al O2 required at this timePFT 08/25/20FVC : 77 %, FEV1: 61 %... 17 % change post broncho, FEV1/FVC ratio:79 %, T %, RV:184 %, DLCO: 73 % +response to BD, severe airtrappin g wih hyperinfla tion notedRecom mend to quit smoking.on symbicort and albuterol per Pulmo also spiriva Multiple n odules of lung 124537204 R91.8 B/l will refer to Pulmo for f/u and Mx.lung biopsy neg for malignancy Under care by [facility] smoking History of Hodgkin lymphoma 209599385 Z85.71 S/p BM transplant in 2003, No oncology onboard, refer to one for further management /care/surv eilanceDid see Oncologist and had gamaglobul in Rx Mixed hypercholesterolemia and hypertriglyceridemia 660698786 E78.2 TC 345, LDL 226, TG 309Cutback soda, hamburgert torsten atorvastat in also OTC fish oil capsF/u with labs in 3 months Long-term drug therapy 732359967 Z79.899 Chronic low back pain 27 2719970 M54.51 under care by Pain [facility] Tobacco us e cessation education 339333575 Z71.6 recommend to quit smoking Tobacco de pendence syndrome 48520978 F17.200 Recommend to slow down and quit at the earliest- 1.5 PPD Migraine 95551878 G43.90 9 Per , on sumatripta n 100 + topiramate [id number] [facility] (Adult [facility]) [address] [place] [address] 06/02/2022 15:07:16 06/05/2022 07:36:18 Radiologic infiltrate of lung 705072645 R91.[address] 07/26/20: impression : usual interstiti al pneumonia. HRCT not completed, ROBB 04/2021 LDCT 06/12/20: nodule measuring up to 6 mm, tree in bud opacities RML, possibly underlying infectious process Chronic ob structive pulmonary disease 85622583 J44.9 Continue MDI/DPI- Symbicort 160 mcg and spiriva, albuterol as needed, nebs Reactive a irway disease 1101243734 06 J45.909 Continue MDI History of Hodgkin lymphoma 133421856 Z85.71 Followed by oncologist , has appointmen t 06/06/22 Smokes tobacco daily 449 502553 Z72.0 tobacco : 1.5 ppd, 55 years, 81 PYHworking on stopping Smoking cessation discusseda nnual LDCT screening Solitary n odule of lung 059284120 R91.1 LDCT 06/12/20: nodule measuring up to 6 mm Continue surveillan ce Chest discomfort 3602943 09 R07.89 Discomfort with deep breathingr eports recently getting over viral illness, reports COVID-19 home test negative [id number] MD Alexia Cardenas 14 IM 4 [facility] [address] [place] [address] 05/04/2022 09:29:47 05/05/2022 09:30:04 Mixed hypercholesterolemia and hypertriglyceridemia 979527244 E78.2 TC 253, LDL 124, TG 445Cutback soda, hamburgert torsten atorvastat in also OTC fish oil capsUsed to drink alcohol, stopped > 4-5 months ago- will do f/u labs Chronic ob structive pulmonary disease 19330188 J44.9 6 min walk: no supplement al O2 required at this timePFT 08/25/20FVC : 77 %, FEV1: 61 %... 17 % change post broncho, FEV1/FVC ratio:79 %, T %, RV:184 %, DLCO: 73 % +response to BD, severe airtrappin g with hyperinfla tion notedRecom mend to quit smoking.on symbicort and albuterol per Pulmo also spiriva Multiple n odules of lung 010873602 R91.8 B/l will refer to Pulmo for f/u and Mx.lung biopsy neg for malignancy Under care by Pul[facility] smoking History of Hodgkin lymphoma 661029574 Z85.71 S/p BM transplant in 2004Did see Oncologist and had gamaglobul in Rx Tobacco de pendence syndrome 97374483 F17.200 Recommend to slow down and quit at the earliest- 1.5 PPD Obesity 658723276 E66.9 Recommend to loose weight with diet control and exercise. Administra tion of pneumococcal vaccine 13836185 Z23 Administra tion of influenza vaccine 07458094 Z23 no issue before Migraine 22224195 G43.90 9 Per , on sumatripta n 100 + topiramate Gastroesop hageal reflux disease without esophagitis 508843696 K21.9 Loose weight , avoid soda, spicy stuff, Stop smokingUse medication as prescribed .On OTC prevacid (15mg x 2) Esophageal dysphagia 408 41605 R13.19 Lower 3rd for 3 wks for solidsUses prevacid for reflux, otherwise no buning feelingDen ies loosing weight/masoud k stoolGI and barium swallow [id number] MD Alexia Cardenas 14 IM 4 [facility] [address] 08/11/2022 16:05:00 08/14/2022 11:08:57 Dysuria 49960985 R30.0 With difficult to initiate?P rostatis vs UTITake bactrim and hydrate wellIf no better call /go to ER [id number] MD Alexia Cardenas 14 IM 4 [facility] [place] [address] 09/01/2022 11:18:28 09/04/2022 11:54:35 Mixed hypercholesterolemia and hypertriglyceridemia 566919851 E78.2 TC 253, LDL 124, TG 445Cutback soda, hamburgert torsten atorvastat in also OTC fish oil capsUsed to drink alcohol, stopped > 4-5 months ago- will do f/u labs Chronic ob structive pulmonary disease 02626240 J44.9 6 min walk: no supplement al O2 required at this timePFT 08/25/20FVC : 77 %, FEV1: 61 %... 17 % change post broncho, FEV1/FVC ratio:79 %, T %, RV:184 %, DLCO: 73 % +response to BD, severe airtrappin g with hyperinfla tion notedRecom mend to quit smoking.on symbicort and albuterol per Pulmo also spirivaNee ds CT lung by the pulmo soon per the pt History of Hodgkin lymphoma 694002001 Z85.71 S/p BM transplant in 2003Did see Oncologist and had gamaglobul in Rx Tobacco de pendence syndrome 09990849 F17.200 Recommend to slow down and quit at the earliest- 1.5 PPD Multiple n odules of lung 124937746 R91.8 B/l will refer to Pulmo for f/u and Mx.lung biopsy neg for malignancy Under care by [facility] smoking Gastroesop hageal reflux disease without esophagitis 747360176 K21.9 Loose weight , avoid soda, spicy stuff, Stop smokingUse medication as prescribed .On OTC prevacid (15mg x 2)- wants script send in Esophageal dysmotility 164006333 K22.4 Per EGD per GI in Jul (?Short segment Barretts)B iopsied also had esophagiti sFeeling/e ating better now Obesity 831636272 E66.9 Recommend to loose weight with diet control and exercise. [id number] [facility] [address] [place] [address] 08/31/2022 14:12:34 09/06/2022 09:16:39 Chronic obstructive pulmonary disease 64650102 J44.9 Continue MDI/DPI- Symbicort 160 mcg and spiriva, albuterol as needed, nebs Reactive a irway disease 2704770506 06 J45.909 Continue MDI History of Hodgkin lymphoma 342287314 Z85.71 Followed by oncologist , has appointmen t 06/06/22 Smokes tobacco daily 449 464670 Z72.0 tobacco : 1.5 ppd, 55 years, 81 PYH Smoking cessation discusseda nnual LDCT screening Solitary n odule of lung 172297092 R91.1 LDCT 06/12/20: nodule measuring up to 6 mm Continue surveillan ce , chest ct's ordered, not completed. encouraged completion Interstiti al pneumonia 65459960 J84.9 repeat High resolution chest ct w/o contrast ordered prior, will reorder . Encouraged to completedM ust stop smoking Chest Ct 07/26/20: impression : usual interstiti al pneumonia. LDCT 06/12/20: nodule measuring up to 6 mm, tree in bud opacities RML, possibly underlying infectious process [id number] [facility] (Adult Med) [address] [place] [address] 11/01/2022 14:20:00 11/07/2022 10:49:09 Chronic obstructive pulmonary disease 00465254 J44.9 Stabledeni es increased SOB, cough/sput um production Continue albuterol as neededSymb icort 160 mcgSpiriva with handihaler Nebs Interstiti al pneumonia 91753726 J84.9 repeat High resolution chest ct w/o contrast ordered prior, will reorder . Encouraged to completeMu st stop smoking Chest Ct 07/26/20: impression : usual interstiti al pneumonia. LDCT 06/12/20: nodule measuring up to 6 mm, tree in bud opacities RML, possibly underlying infectious process Reactive a irway disease 9738368056 06 J45.909 Continue MDI History of Hodgkin lymphoma 648665396 Z85.71 Followed by oncologist Smokes tobacco daily 449 415483 Z72.0 tobacco : 1.5 ppd, 55 years, 81 PYH Smoking cessation discusseda nnual LDCT screening Solitary n odule of lung 192675923 R91.1 LDCT 06/12/20: nodule measuring up to 6 mm Continue surveillan ce , chest ct's ordered, not completed. encouraged completion Dependence on nocturnal oxygen therapy 2950755500 9108 Z99.81 overnight oximetry study with noted desaturati on with sleep repeat overnight oximetry on 2L/min with desaturati on remaining. .will check sleep study Obstructiv e sleep apnea syndrome 56394590 G47.33 Desaturati on noted with slightly elevated RASHIDA with supplement al O2, he is symptomati c. Will benfit from sleep study to assess of RAVEN with comorbid COPD [id number] MD Alexia Cardenas 14 IM 4 [facility] [address] [place] [address] 01/22/2023 08:45:31 01/22/2023 15:21:05 Mixed hypercholesterolemia and hypertriglyceridemia 110317981 E78.2 Low cholestrol diet emphasised Ct medication as prescribed Chronic ob structive pulmonary disease 17925956 J44.9 6 min walk: no supplement al O2 required at this timePFT on 08/25/20FVC : 77 %, FEV1: 61 %... 17 % change post broncho, FEV1/FVC ratio:79 %, T %, RV:184 %, DLCO: 73 % +response to BD, severe airtrappin g with hyperinfla tion notedRecom mend to quit smoking.on symbicort and albuterol per Pulmo also spirivaNee ds CT lung by the pulmo soon per the pt Gastroesop hageal reflux disease without esophagitis 714523589 K21.9 Loose weight , avoid soda, spicy stuff, Stop smokingUse medication as prescribed .On OTC prevacid (15mg x 2)- wants script send in Multiple n odules of lung 810021897 R91.8 lung biopsy neg for malignancy Under care by Pulmost[facility] smoking History of Hodgkin lymphoma 033100064 Z85.71 S/p BM transplant in 2004Did see Oncologist and had gamaglobul in Rx Tobacco de pendence syndrome 29737213 F17.200 Recommend to slow down and quit at the earliest- 1.5 PPD Obesity 584145033 E66.9 Recommend to loose weight with diet control and exercise. Long-term drug therapy 608290068 Z79.823 [id number] MD Alexia Cardenas 14 IM 4 [facility] [address] [place] [address] 05/08/2023 14:14:46 05/16/2023 16:03:10 Mixed hypercholesterolemia and hypertriglyceridemia 414724967 E78.2 Low cholestrol diet emphasised Ct medication as prescribed Chronic ob structive pulmonary disease 82489977 J44.9 6 min walk: no supplement al O2 required at this timePFT on 08/25/20FVC : 77 %, FEV1: 61 %... 17 % change post broncho, FEV1/FVC ratio:79 %, T %, RV:184 %, DLCO: 73 % +response to BD, severe airtrappin g with hyperinfla tion notedRecom mend to quit smoking.on symbicort and albuterol per Pulmo also spirivaNee ds CT lung by the pulmo soon per the pt Gastroesop hageal reflux disease without esophagitis 320755959 K21.9 Loose weight , avoid soda, spicy stuff, Stop smokingUse medication as prescribed .On omeprazole lately Multiple n odules of lung [id number] R91.8 lung biopsy neg for malignancy Under care by Pulmostop smoking History of Hodgkin lymphoma 880685619 Z85.71 S/p BM transplant in 2003Did see Oncologist and gammaglobu ladan Rx every 2-3 months per the need Tobacco de pendence syndrome 56539546 F17.200 Recommend to slow down and quit at the earliest- 1.5 PPD Obesity 992285481 E66.9 Recommend to loose weight with diet control and exercise. Acute uppe r respiratory infection 36823683 J06.9 Hydrate well. Use humidifier Take medication as prescribed , If getting worse come in / go to ERTry to stop smokingSwa bs were neg Iron defic iency anemia 59689681 D50.9 Confirm it?Poor absorption 01/27/23H/o colon polyps per 2020 colonoscop y- r/o occult lossAdd iron and f/u too05/08/23 OB was negcheck iron level for its improvemen t (vs referral for infusion PRN) History of migraine 1614 54268 Z86.69 On nurdec per pain Mx [id number] MD Alexia OLVERA 14 IM 4 [facility] [address] [place] [address] 06/21/2023 10:03:27 06/29/2023 16:21:31 Acute exacerbation of chronic obstructive pulmonary disease 066312073 J44.1 Rx duo-neb in office procedured oxycycline 100 mg bid x 5 dayspredni sone 20 mg BID x 5 days (GOLD CRITERIA COPD EXACERBATI ON)rx duo-neb for patient to take q4 hours on day 1, to q6 hours on day 2 to q8 hours on day 3 to q12 hours on day 4patient refuses to go to hospital add TTE to assess RVSP for pulm pressure exacerbati ng symptoms - to guide medication management if elevated Dyspnea at rest [id number] 7 R06.00 [id number] MD Alexia Cardenas 14 IM 4 [facility] [address] 07/10/2023 15:00:07 07/11/2023 09:22:30 Mixed hypercholesterolemia and hypertriglyceridemia 339198525 E78.2 Low cholestrol diet emphasised Ct medication as prescribed Chronic ob structive pulmonary disease 80298362 J44.9 6 min walk: no supplement al O2 required at this timePFT on 08/25/20FVC : 77 %, FEV1: 61 %... 17 % change post broncho, FEV1/FVC ratio:79 %, T %, RV:184 %, DLCO: 73 % +response to BD, severe airtrappin g with hyperinfla tion notedRecom mend to quit smoking.on symbicort and albuterol per Pulmo also spirivaNee ds CT lung by the pulmo soon per the pt07/10/23No t seeing a Pulmo lately wants a new referral History of Hodgkin lymphoma 552411249 Z85.71 S/p BM transplant in 2003Did see Oncologist and gammaglobu ladan Rx every 2-3 months per the need Tobacco de pendence syndrome 57670442 F17.200 Recommend to slow down and quit at the earliest- 1.5 PPD Gastroesop hageal reflux disease without esophagitis 435442500 K21.9 Loose weight , avoid soda, spicy stuff, Stop smokingUse medication as prescribed .On omeprazole lately Persistent cough 0143319 02 R05.3 For awhile - exacerbati onAlready had doxy and prednisone per the residents 2 wks agoZ avel, CXR also refer to Pulmo tooIf no better in few days / getting worse, come in / go to ER.RTC in 2 wks for re examUse neb rx [id number] MD Alexia Cardenas 14 IM 4 [facility] [address] 07/24/2023 15:13:15 07/25/2023 11:26:44 Persistent cough 234526451 R05.3 For awhile - exacerbati onAlready had doxy and prednisone per the residents 2 wks agoZ avel, CXR also refer to Pulmo tooIf no better in few days / getting worse, come in / go to ER.RTC in 2 wks for re examUse neb rx07/24/23c ompletely resolvedHa s appt with pulmo in September Administra tion of influenza vaccine 21776351 Z23 no issue before [id number] MD Alexia Baldwin 14 IM 4 [facility] [address] [place] [address] 11/30/2023 10:39:10 12/05/2023 09:13:38 Acute exacerbation of chronic obstructive pulmonary disease 822442498 J44.1 COPD exacerbati on suspected at this time in the setting of increase in mucous production , cough and SOB. Will treat with total 120 mg of solumedrol injection in clinic. Will also prescribe azithromyc in. ED precaution s given and also discussed COPD action plan. Patient understood . Dyspnea 667807231 R06.00 Negative for flu and COVID. [id number] MD Alexia Urrutia 14 IM 4 [facility] [address] [place], [place] [address], [place] [address] 07/24/2024 15:44:49 08/08/2024 07:47:59 Obesity 099299105 E66.9 Bilateral cataracts 9572 2004 H26.9 Cleared for cataract surgery as patient is low risk. No need for pre or post test labs. For COPD he uses Spiriva and albuterol and is well managed. Is on 2L at home for nocturnal hypoxemia. Did sign clearance form and follow up with surgeon if continued to deem fit. Counselled to follow up regarding rest of medical care. Essential hypertension 27486187 I10 Discussed Blood pressure is elevated and needs to be better controlled . Would rather focus on surgical clearance at this time but agreeable to follow up. History of non-Hodgkins lymphoma 976040499 Z85.72 Discussed to follow up with oncologist regarding prescribin g aspirin for history of clogged ports. Health Concerns Section Related Observation LastModified by Organization Detai ls LastModified Time None Recorded Concern Status LastModified by Organization Details LastModified Time None Recorded Advance Directives Directive N: Payers Encounter Date Sequence Insurance Name Policy Number Policy Elena Covered Member ID Elena Member ID Guarantor Name 06/21/2023 1 [place] Harry Pham [id number] Harry Pham 06/21/2023 2 [place]ARE OR MEDICARE REPLACEMENT PRIMARY) Harry Pham [id number] Harry Pham 07/10/2023 1 [place] Pham [id number] Harry Pham 07/10/2023 2 [place]PLACEMENT [place]) Harry Pham [id number] Harry Pham 07/24/2023 1 [place] Harry Pham [id number] Harry Pham 07/24/2023 2 [place]PL[place]) Harry Pham [id number] Harry Pham 11/30/2023 1 [place] Harry Pham [id number] Harry Pham 11/30/2023 2 [place]PLACEMENT [place]) Harry Pham [id number] Harry Pham 07/24/2024 1 [place] Harry Pham [id number] Harry Pham 07/24/2024 2 [place]IC[place]PLACEMENT [place]) Harry Pham [id number] Harry Pham Notes Date Note Type Note Provider Name and Address Organization Details Recorded Time 06/21/2023 text/html 67 yo M presents to clinic in mild distress - patient called the clinic yesterday for SOB and cough x 3 mo duration progressively worsening in the last few days. Patient is a known COPD patient. He endorses trying albuterol nebulizer at home with improvement in symtpoms x 2 hours and then progressing to SOB. Patient denies fever, chills, nausea, vomit, weight loss, rashes or sick contacts. Pt refuses to go to hospital again on site. Discussed with patient breonna in office with plan to rx duo-neb and doxycycline and steroids - patient agreeable to plan - anything to keep me out of the hospital, they keep me for 5 days and this keeps happening . CARRIE GALLAGHER MD Attn: Accounting,[address] [place], [address], [facility] 06/29/2023 10:23:56 07/10/2023 text/html Back PainReporte d bypatient.Location: lumbar spine Quality:dull Severity:mild (1-4) Duration:chronic Onset/Timing:recurr ent episode Aggravating Factors:movement/po sitioning Associated Symptoms:no fever; no weak limbs; no numbness of the legs/feet; no incontinenceNotes:U nder care by Pain Mx.COPDReported bypatient.Onset/Juan Luis ing:intermittent Severity:mild Associated Symptoms:no snoringNotes:under care by Pulmo-not seeing one recentlyWas seen by residents on 06/21/23 and was Rxed with doxy and & prednisone -somewhat better still coughingReflux/GERD Reported bypatient.Symptomsh eartburn Severity:waking up at night Duration:present 1-4 years Context:no drug/alcohol abuse;smoker 1.5PPD Alleviating Factors:protein pump inhibitors Associated Symptoms:no difficulty swallowing; no weight loss Den Denny MD Attn: Accounting,[address] [facility], [place], [address], [facility] 07/10/2023 17:05:34 07/24/2023 text/html COPDReported bypatient.Onset/Juan Luis ing:intermittent Severity:mild Associated Symptoms:no snoringNotes:under care by Pulmo-not seeing one recentlyWas seen by residents on 06/21/23 and was Rxed with doxy and & prednisone -somewhat better still coughing 07/24/23F/u on cough- lot betterAppt with pulmo in SeptemberNo other issue Den Denny MD Attn: Accounting,[address] [facility], [place], [address], [facility] 07/24/2023 16:19:49 11/30/2023 text/html Harry is a 67 yo M with a pmh of COPD, presenting with SOB since sunday while at home. Has been the same since. gets better with the treatment for a short time. Coughing yellow and green mucous and has been wheezing. Currently on 2L at home oxygen as a Home unit.currently on albuterol and nebs, spiriva. Symbicort.Treatment helps for 1:30 hr and then back to symptoms.Does experience congestion. uses albuterol 3-4x a day recently. Denies any chest pain, sore throat, swelling or heart conditions. Marita Browne MD Attn: Accounting,[address] [facility], [place], [address], [facility] 12/04/2023 05:48:25 07/24/2024 text/html Harry is a 68 yo M with a pmh of COPD, History of hodgkins lymphoma, prediabetes, GERD, presenting for surgery clearance for bilateral cataract extraction. Ongoing for years. Surgery scheduled for Jul 31.Follows up with Oncologist and gets infusions every 2 months. Oncologist said surgery is ok per patient. Not on any blood thinners. Infusion nurse mentioned to him to discuss with PCP to start him on aspirin 81 mg to prevent port clogging. Ports have been clogged 5 times in the past. Denies any other concerns as chest pain, SOB or abdominal pain. Janene Lopez MD Attn: Accounting,[address] [facility], [place], [address], [place] [facility] [place] 08/08/2024 00:27:22
--- OUTSIDE RECORDS SUMMARY | 2024-09-10 13:50 | XMS_ITS | CONTINUITY OF CARE DOCUMENT ---
Author Name florentino good Address Unknown Organization [facility] Address [address] [place] [address] Phone [phone] Care Team Providers Care Wire Mill Rover Name Role Phone florentino good Unavailable Unavailable INSURANCE PROVIDERS Payer name Policy type / Coverage type [place] red democrat ID [facility] [id number]
--- OUTSIDE RECORDS SUMMARY | 2024-09-10 13:50 | XMS_ITS | Encounter Summary ---
Author Organization [facility] MEI Heller [facility] Address [address] [place] [address] Care Team Providers Care Slate Mixer Name Role Phone Den Denny MD Primary Care Provider Encounter Details Date Type Department Care Team (Late Contact Info) Description 09/04/2024 Orders Only [facility] Oncology and Hematology - [place] [address] [place] [address] Hardik Nieves MD [facility] Traveler | [address] [place] [phone] Social History Tobacco Use Types Packs/Day Years Used Date Smoking Tobacco: Every Day Cigarettes 1.5 25 Comments: quit he is try ing Alcohol Use Standard Drinks/Week Comments Yes 0 (1 standard drink = 0.6 oz pur e alcohol) social Sex and Gender Information Value Date Recorded Sex Assigned at Not on file Legal Sex Male 1:36 PM DISTRICT CUSTOMS DIRECTOR Gender Identity Not on file Sexual Orientation Not on file documented as of this encounter Plan of Treatment Upcoming Encounters Date Type Department Care Team (Late Contact Info) Description 01/05/2025 9:45 AM CDT Office Visit [facility] Oncology and Hematology - [place] [address] [place] [address] Hardik Nieves MD [address] | [address] [place] [phone] documented as of this encounter Procedures Procedure Name Priority Date/Time Associated Diagnosis Comments BASIC METABOLIC PANEL Routine 09/03/2024 1:36 PM DISTRICT CUSTOMS DIRECTOR documented in this encounter Results * BASIC METABOLIC PANEL (09/03/2024 1:36 PM DISTRICT CUSTOMS DIRECTOR) Blood Haridk Nieves MD CHEMISTRY ORDERABLES Final Resu lt documented in this encounter Visit Diagnoses Not on filedocumented in this encounter Care Teams Slate Mixer Relationship Specialty Start Date End Date Den Denny MD [address] [place] [address] [address] [place] [phone] PCP - General Internal Medicine 05/07/24 documented as of this encounter"
--- OUTSIDE RECORDS SUMMARY | 2024-09-10 13:50 | XMS_ITS | Clinical Summary ---
Author Organization [facility] Antonieta lee [address] Address [address] [place] [address] Care Team Providers Care Advanced Practice Professional Name Role Phone Den Denny MD Primary Care Provider Allergies Active Allergy Reactions Criticality Noted Date Comments Iodine Rash Medium 06/02/2020 Penicillins Other (See Comments) High 06/02/2020 Knocks out for a couples of days Medications albuterol HFA 90 mcg inhaler 0 Active gabapentin (NEURONTIN) 300 mg capsule 0 Active HYDROcodone-ac etaminophen (NORCO) 10-325 mg Tablet 0 Active methocarbamoL (ROBAXIN) 750 mg tablet 0 Active tiotropium (SPIRIVA) 18 mcg capsule Take 18 mcg by inhalation daily. Active lansoprazole (PREVACID) 30 mg Capsule, Delayed Release(E.C.) Take 30 mg by mouth daily. Active Symbicort 160-4.5 mcg/actuation HFA Aerosol Inhaler 0 Active diclofenac sodium (VOLTAREN) 1 % gel 8 Active EPINEPHrine (EPIPEN) 0.3 mg/0.3 mL Auto-Injector Inject 0.3 mg by intramuscular injection. 9 Active calcitRIOL (ROCALTROL) 0.25 mcg capsule 8 Active azithromycin (ZITHROMAX) 250 mg tablet Take 250 mg by mouth daily. 4 Active Active Problems Problem Noted Date Diagnosed Date History of Hodgkin's lymphoma 06/02/2020 Hypogammaglobulinemia 06/02/2020 Encounters Date Type Department Care Team Description 09/04/2024 9:00 AM FINANCIAL FOUNDATIONS ASSOCIATE Office Visit [facility] Oncology and Hematology - [place] [address] [place] [address] Hardik Nieves MD CVID (common variable immunodeficiency) (CMS/HCC) (Primary Dx); Chronic anemia; Screening for lung cancer 09/04/2024 Orders Only [facility] Oncology and Hematology - [place] [address] [place] [address] Hardik Nieves MD 07/09/2024 Orders Only [facility] Oncology and Hematology - [place] [address] [place] [address] Hardik Nieves MD 07/08/2024 External Device Data STL ABSTRACTION Provider, Abstract from Last 3 Months Family History Medical History Relation Name Comments Colon Cancer Father Diabetes Sister 3 Relation Name Status Comments Brother 1 Alive Brother 2 Alive Brother 3 Alive Brother 4 Father Mother Sister 1 Alive Sister 2 Alive Sister 3 Social History Tobacco Use Types Packs/Day Years Used Date Smoking Tobacco: Every Day Cigarettes 1.5 25 Tobacco Cessation:Ready to Q uit: Not Asked; Counseling Given: Not Answered Comments: quit he is trying Alcohol Use Standard Drinks/Week Comments Yes 0 (1 standard drink = 0.6 oz pur e alcohol) social Sex and Gender Information Value Date Recorded Sex Assigned at Not on file Legal Sex Male 1:36 PM FINANCIAL FOUNDATIONS ASSOCIATE Gender Identity Not on file Sexual Orientation Not on file Last Filed Vital Signs Vital Sign Reading Time Taken Comments Blood Pressure 138/87 09/04/2024 9:18 AM FINANCIAL FOUNDATIONS ASSOCIATE Pulse 106 09/04/2024 9:14 AM FINANCIAL FOUNDATIONS ASSOCIATE Temperature 35.5 C (95.9 F) 09/04/2024 9:14 AM FINANCIAL FOUNDATIONS ASSOCIATE Respiratory Rate 15 09/04/2024 9:14 AM FINANCIAL FOUNDATIONS ASSOCIATE Oxygen Saturation 97% 09/04/2024 9:14 AM FINANCIAL FOUNDATIONS ASSOCIATE Inhaled Oxygen Concentration - - Weight 83.5 kg (184 lb) 09/04/2024 9:14 AM FINANCIAL FOUNDATIONS ASSOCIATE Height 167.6 cm (5' 6 ) 09/19/2021 9:06 AM CDT Body Mass Index 29.7 09/19/2021 9:06 AM CDT Plan of Treatment Upcoming Encounters Date Type Department Care Team (Late st Contact Info) Description 01/05/2025 9:45 AM CDT Office Visit [facility] Oncology and Hematology - [place] [address] [facility] [address] [place] [address] Hardik Nieves MD [address] [facility] [address] [place] [address] Health Maintenance Due Date Last Done Comments Pre-Diabetes and Diabetes Screening 1955 DTAP/TDAP/TD VACCINES (1 - Tdap) 12/10/1975 Traditional Medicare (ACO) A nnual Wellness Visit 12/10/1975 ZOSTER VACCINE (1 of 2) 12/10/1975 FIT-DNA Q 3 years 2001 FIT/FOBT Q 1 year 2001 Flex Sig/CT Colonography Q 5 years 2001 RSV VACCINE (60+ or ) (1 - Risk 60-74 years 1-dose series) 2016 Lung Cancer Screening 06/12/2021 06/12/2020 Abdominal Aortic Aneurysm (A AA) Screening 2021 INFLUENZA VACCINE (#1) 2024 4, 05/04/2022, 06/23/2021, Additional history exists COVID-19 Vaccine ( - 2023-2 5 season) 2024 03/21/2021, 01/19/2021, 12/22/2020 COLORECTAL SCREENING 10/19/2030 10/19/2020, 10/20/19 Colorectal Cancer Screening 10/19/2030 PNEUMOCOCCAL VACCINE 50+ YEARS Completed 05/04/2022 , 04/27/2013 Procedures Procedure Name Priority Date/Time Associated Diagnosis Comments BASIC METABOLIC PANEL Routine 09/03/2024 1:36 PM FINANCIAL FOUNDATIONS ASSOCIATE CBC WITH DIFFERENTIAL Routine 06/30/2024 2:32 PM FINANCIAL FOUNDATIONS ASSOCIATE from Last 3 Months Results * BASIC METABOLIC PANEL (09/03/2024 1:36 PM FINANCIAL FOUNDATIONS ASSOCIATE) Blood us Hardik Nieves MD CHEMISTRY ORDERABLES Final Resu lt * CBC WITH DIFFERENTIAL (06/30/2024 2:32 PM FINANCIAL FOUNDATIONS ASSOCIATE) Blood Hardik Nieves MD HEMATOLOGY ORDERABLES Final Res ult from Last 3 Months Insurance [place] PART A AND B [place] PART A AND B Care Teams Advanced Practice Professional Relationship Specialty Start Date End Date Den Denny MD [address] [facility] [address] [place] [phone] PCP - General Internal Medicine 05/07/24
== END 2024-09-10 12:32 | disposition home or self-care (01) ==
PROVIDERS: PCP Internal Medicine; Visit Provider Internal Medicine Hematology & Oncology
DX: Z12.2 Encounter for screening for malignant neoplasm of respiratory organs (principal); Z87.891 Personal history of nicotine dependence
CPT/HCPCS: 71271

== ENCOUNTER 2025-01-29 13:54 | Outpatient (CLI) | payer MEDICARE, MEDICAID, SELFPAY ==
--- NOTE | ~2025-01-29 | XR_ITS ---
EXAMINATION: XR fl port a cath w contrast DATE: 01/29/2025 14:25 INDICATION: Lymphoma with no blood return at a right subclavian central venous port catheter TECHNIQUE: 355 cine fluoroscopic images of the right upper chest were obtained during injection of 70 mL Omnipaque 240 intravenous contrast into the port catheter reservoir. The amount of fluoroscopy ti me used during this procedure was 0.3 minutes. Total DAP was 0.854 mGym^2. COMPARISON: None. FINDINGS: Tip of a right subclavian central venous port catheter at the caudal superior vena cava. Contrast inj ection extends to the tip of the catheter where it is likely contained within a fibrin sheath with mi ldly bulging distal tip. Contrast exits the sheath approximately 2 cm above level of the tip of the c atheter where it extends caudally within the flow the blood in the superior vena cava. IMPRESSION: 1. Fibrin sheath around the distal 2 cm of the right subclavian central venous port catheter. Reviewed, dictated and finalized at location A.
--- OUTSIDE RECORDS SUMMARY | 2025-01-29 14:00 | XMS_ITS | Referral Summary ---
Author Organization [facility] Address [address] [place] [address] Care Team Providers [employer] In[employer] Name Role Phone Nathan Cr MD Unavailable [phone] Kwesi Elizabeth MD Primary Care Provider [phone] Encounters Date Type Department Care Team Description 12/04/2024 9:56 AM CDT - 12/04/2024 11:59 PM CDT Hospital Encounter [address] [address] Hesitancy of micturition Discharge Disposition: Discharge to home or self care 12/04/2024 9:56 AM CDT - 12/04/2024 11:59 PM CDT Hospital Encounter [address] [address] Hesitancy of micturition Discharge Disposition: Discharge to home or self care 11/26/2024 9:51 AM CDT - 11/26/2024 11:59 PM CDT Hospital Encounter [facility] Res[facility] [address] [place] [id number] Centrilobular emphysema (HCC) Discharge Disposition: Discharge to home or self care 11/26/2024 9:50 AM CDT - 11/26/2024 11:59 PM CDT Hospital Encounter [address] [address] Cigarette nicotine dependence without complication Discharge Disposition: Discharge to home or self care 11/19/[address] [address] Shamika Pacheco RN 10/30/2024 Results Follow-Up [facility] Pulmonary at [address] [place] [id number] Shamika Patel, EL Comprehensive metabolic panel, eGFR, Pulmonary Function Test -[facility]; Pulse Ox with 6 Minute Walk, CT Lung Cancer Screening 10/29/2024 8:45 AM CDT Lab [address] Long-term use of high-risk medication from Last 3 Months Allergies Active Allergy Reactions Criticality Noted Date Comments Iodine And Iodide Containing Products Rash,Redness Medium 12/16/2013 Penicillins Other (See comments) Low 3 day coma Medications methocarbamol (ROBAXIN) 750 mg tablet 09/29/19 18 Active lansoprazole (PREVACID) 30 mg capsule TAKE ONE CAPSULE BY MOUTH DAILY 09/27/19 18 Active HYDROcodone-acetamin ophen (NORCO) 10-325 mg per tabletIndications:Pa in 09/30/19 18 Active gabapentin (NEURONTIN) 300 mg capsule 09/27/19 18 Active fenofibrate nanocrystallized (TRICOR,TRIGLIDE) 145 mg tablet 09/29/19 18 Active VITAMIN D2 50,000 unit capsule 10/11/19 18 Active diclofenac sodium (VOLTAREN) 1 % gel 09/27/19 18 Active dexamethasone (DECADRON) 10 mg/mL injection 08/08/19 18 Active calcitRIOL (ROCALTROL) 0.25 mcg capsule 09/27/19 18 Active EPINEPHrine 0.3 mg/0.3 mL auto-injection syringeIndications:A naphylaxis Inject 0.3 mL (0.3 mg total) into the muscle as instructed as needed for anaphylaxis. 2 Syringe 3 07/04/19 19 Active topiramate (TOPAMAX) 25 mg tabletIndications:Ch ronic migraine without aura without status migrainosus, not intractable Take one tablet (25 mg) po bid for one week, then 2 tablets (50 mg ) po bid. 120 tablet 3 04/15/20 21 Active SUMAtriptan (IMITREX) 100 mg tabletIndications:Ch ronic migraine without aura without status migrainosus, not intractable TAKE ONE TABET BY MOUTH EVERY TWO HOURS NEEDED SOON FEEL HEADACHE IS COMING. NO MORE THAN 2 TABLETS IN 24 HOURS. 9 tablet 3 07/11/19 22 Active cyanocobalamin (Vitamin B-12) 1,000 mcg tabletIndications:Pr evention of Vitamin B12 Deficiency Take 1 tablet (1,000 mcg total) by mouth daily Active iron bisgly,ps-FA-B-C#12- succ 65 mg-65 mg -1,000 mcg (24) tablet Take 65 mcg by mouth daily Active Spiriva with HandiHaler 18 mcg per inhalation capsuleIndications:C hronic obstructive pulmonary disease, unspecified COPD type (HCC) Place 1 puff (1 capsule total) into inhaler and inhale daily 30 capsule 11 10/02/19 24 Active albuterol HFA (PROVENTIL HFA,VENTOLIN HFA,PROAIR HFA) 90 mcg/actuation inhalerIndications:C hronic obstructive pulmonary disease, unspecified COPD type (HCC) Inhale 2 puffs every 6 (six) hours as needed for wheezing 8.5 g 11 10/02/19 24 Active ascorbic acid 500 mg tablet,chewable Take 1 tablet/chew tab (500 mg total) by mouth daily 01/28/20 23 Active omeprazole (PriLOSEC) 20 mg capsule Take 1 capsule (20 mg total) by mouth daily 09/21/19 24 Active roflumilast (DALIRESP) 500 mcg tabletIndications:Pr evention of Bronchospasm with Chronic Bronchitis Take 1 tablet (500 mcg total) by mouth daily Patient needs an office apt. 30 tablet 3 08/13/19 25 Active inhalational spacing device (Aerochamber MV) spacerIndications:Ce ntrilobular emphysema (HCC) 1 Units 2 (two) times a day 1 each 3 10/28/19 25 Active budesonide-formotero L (SYMBICORT) 160-4.5 mcg/actuation inhaler Inhale 2 puffs 2 (two) times a day Rinse mouth with water after use. Do not swallow. 1 each 11 10/28/19 25 Active Active Problems Problem Noted Date Diagnosed Date Long-term use of high-risk medication 10/27/2024 Centrilobular emphysema 01/01/2024 Assessment & Plan (10/27/2024 3:47 PM CDT): Continue Symbicort 160-4.5 two puffs BID with AeroChamber I would consider decreasing his ICS dose as he has had recurrent thrush Since last eosinophil count was 100 however he did have a count of 300 in 2018. I have encouraged him to use the AeroChamber that I have sent to the pharmacy and rinse and spit after use. Continue Spiriva handihaler once daily Albuterol 2 puffs every 4-6 hours as needed only, discussed indications for use Check walk testing to assess for supplemental oxygen needs on exertion, I previously ordered this but it was not completed. I have reordered this again today. Continue roflumilast 500 mcg once daily Check CMP We have discussed signs and symptoms that would require earlier evaluation or change to his plan of care. Assessment & Plan (01/01/2024 10:54 PM CDT): Continue Symbicort 160/4.5 two puffs BID Rinse and spit after use Continue Spiriva handihaler once daily Albuterol as needed only, discussed indications for use Check walk testing to assess for supplemental oxygen needs on exertion Start roflumilast 250 mcg once daily, if tolerated after one month increase to 500 mcg once daily. Check CBC and CMP Chronic respiratory failure with hypoxia, on home O2 therapy 01/01/2024 Assessment & Plan (10/27/2024 3:47 PM CDT): Continue supplemental oxygen with all sleep Six minute walk testing as above to assess for exertional hypoxia He is aware of the risks of hypoxia He is aware not to smoke with his oxygen in place. Assessment & Plan (01/01/2024 10:51 PM CDT): Continue supplemental oxygen with all sleep Six minute walk testing as above to assess for exertional hypoxia He is aware of the risks of hypoxia Cigarette nicotine dependence without complicati on 01/01/2024 Assessment & Plan (10/27/2024 3:48 PM CDT): - Smoking cessation counseling and techniques reviewed at length - Avoid triggers and use distraction techniques - Information given regarding [place] [employer] Quit line: 3-761-IXSW-YES for free services - 5 minutes spent discussing cessation Annual LDCT due 08/2024 He has tried patches, which he claims he almost overdosed on, and gum. He is uninterested in lozenges, Wellbutrin, or varencline at this time Assessment & Plan (01/01/2024 10:51 PM CDT): - Smoking cessation counseling and techniques reviewed at length - Avoid triggers and use distraction techniques - Information given regarding [place] Tobacco Quit line: 6-177-MGWZ-YES for free services - 5 minutes spent discussing cessation Annual LDCT due 08/2024 Oral rick 01/01/2024 Assessment & Plan (10/27/2024 3:49 PM CDT): Start nystatin swish and swallow We have reinforced rinse and spit after use Use Symbicort with AeroChamber Has a last resort we may need to decrease his ICS dose Assessment & Plan (01/01/2024 10:54 PM CDT): Start Nystatin swish and swallow QID for 10 days Reinforced rinse and spit after Symbicort use Dysphagia 07/17/2022 Overview (07/17/2022): Added automatically from request for surgery [id number] Hiatal hernia 07/17/2022 Overview (07/17/2022): Added automatically from request for surgery [id number] Chronic migraine without aur a without status migrainosus, not intractable 04/15/2021 History of colonic polyps 08/09/2020 Overview (08/09/2020): Added automatically from request for surgery [id number] Encounter for screening colonoscopy 08/09/2020 Overview (08/09/2020): Added automatically from request for surgery [id number] Hypogammaglobulinemia 02/20/2018 History of Hodgkin's lymphoma 01/28/2018 Cancer Staging:Clinical stage from 10/26/2000:Stage IV(Hodgkin lymphoma) - Signed by Nathan Cr MD on 02/25/2018 Sinusitis 02/11/2015 Skin lesions 12/22/2013 Immunizations Immunization Administration Dates Next Due Influenza, Unspecified 04/27/2017 Pneumococcal Conjugate, Unspecified 04/27/2013 Social History Tobacco Use Types Packs/Day Years Used Date Smoking Tobacco: Every Day Cigarettes 1.5 59.6 Started: 1964 Smokeless Tobacco: Never Tobacco Cessation:Ready to Q uit: Not Asked; Counseling Given: Not Answered Alcohol Use Standard Drinks/Week Comments Yes 0 (1 standard drink = 0.6 oz pur e alcohol) AUDIT-C Answer Date Recorded Q1: How often do you have a drink containing alc ohol? 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 Gender Identity Male 10/07/2020 2:35 PM CDT Sexual Orientation Not on file Last Filed Vital Signs Vital Sign Reading Time Taken Comments Blood Pressure 148/89 10/27/2024 11:32 AM CDT Pulse 103 10/27/2024 11:32 AM CDT Temperature 36.2 C (97.2 F) 10/27/2024 11:32 AM CDT Respiratory Rate 18 10/27/2024 11:32 AM CDT Oxygen Saturation 96% 10/27/2024 11:32 AM CDT Inhaled Oxygen Concentration - - Weight 83.9 kg (185 lb) 11/26/2024 10:15 AM CDT Height 167.6 cm (5' 6) 11/26/2024 10:15 AM CDT Body Mass Index 29.86 11/26/2024 10:15 AM CDT Plan of Treatment Not on file Procedures Procedure Name Priority Date/Time Associated Diagnosis Comments US GROIN MASS/HERNIA RIGHT Schedule Routine, Read Routine (OP Routine) 12/04/2024 3:59 PM CDT Hesitancy of micturition US SCROTUM Schedule Routine, Read Routine (OP Routine) 12/04/2024 3:15 PM CDT Hesitancy of micturition PULMONARY FUNCTION TEST (PFT) Routine 11/26/2024 12:57 PM CDT Centrilobular emphysema (HCC) CT LUNG CANCER SCREENING Schedule Routine, Read Routine (OP Routine) 11/26/2024 10:15 AM CDT Cigarette nicotine dependence without complication EGFR Routine 10/29/2024 8:49 AM CDT Long-term use of high-risk medication COMPREHENSIVE METABOLIC PANEL Routine 10/29/2024 8:49 AM CDT Long-term use of high-risk medication COLONOSCOPY 10/19/2020 1:[address] ABDOMEN PELVIS W CONTRAST Routine 05/13/2015 3:23 AM DOCK WORKER from Last 3 Months or Most Recently Relevant to Health Maintenance Results * US Groin Mass Hernia Right (12/04/2024 3:59 PM CDT) Anatomical Region Laterality Modality Abdomen Right Ultrasound 12/17/2024 9:20 AM CDT Narrative 12/17/2024 9:22 AM CDT EXAM DESCRIPTION: US GROIN MASS HERNIA RIGHT REASON FOR STUDY: hesitancy of micturition TECHNIQUE: A Dynamic assessment was performed of the right groin by the laundry equipment operator, with selected grayscale and color Doppler images acquired and recorded in PACS. COMPARISON: None FINDINGS: There is benign appearing lymph node measuring 2.4 x 0.8 x 0.3 cm with thin cortex, fatty hilum and reniform shape. There is hernia containing fat with neck measuring 1 cm and sac measuring 4.5 x 2.2 cm. No definite herniated bowel loops are demonstrated on the obtained images but could be evaluated with CT if necessary. IMPRESSION: Right groin hernia containing fat. This could be further evaluated with CT if clinically warranted. THIS IS AN ELECTRONICALLY VERIFIED FINAL REPORT 12/17/2024 9:22 AM - Electronically signed by Elvis Casarez M.D. JR: Report ID: [id number] Reading Location: [id number] Procedure Note Elvis Casarez MD - 12/17/2024 EXAM DESCRIPTION: US GROIN MASS HERNIA RIGHT REASON FOR STUDY: hesitancy of micturition TECHNIQUE: A Dynamic assessment was performed of the right groin by the laundry equipment operator, with selected grayscale and color Doppler images acquired and recorded in PACS. COMPARISON: None FINDINGS: There is benign appearing lymph node measuring 2.4 x 0.8 x 0.3 cm withthin cortex, fatty hilum and reniform shape. There is hernia containing fatwith neck measuring 1 cm and sac measuring 4.5 x 2.2 cm. No definite herniated bowel loops are demonstrated on the obtained images but could be evaluated with CT if necessary. IMPRESSION: Right groin hernia containing fat. This could be further evaluated withCT if clinically warranted. THIS IS AN ELECTRONICALLY VERIFIED FINAL REPORT 12/17/2024 9:22 AM - Electronically signed by Elvis Casarez M.D. JR: Report ID: [id number] Reading Location: [id number] us Kwesi Elizabeth MD IMG US PROCEDURES Final Re sult * US Scrotum (12/04/2024 3:15 PM CDT) Anatomical Region Laterality Modality Testis N/A Ultrasound 12/15/2024 2:56 PM CDT Narrative 12/15/2024 2:58 PM CDT EXAM DESCRIPTION: US SCROTUM REASON FOR STUDY: hesitancy of mictruition and right testicular pain for 1 month. History of vasectomy. TECHNIQUE: Miranda scale imaging and color flow Doppler imaging of the scrotum and testes. COMPARISON: None FINDINGS: RIGHT: TESTICLE: The right testicle measures 2.4 cm x 2 cm x 1.9 cm. The right testicle is normal in echotexture and contour with no mass. There is normal blood flow. EPIDIDYMIS: The epididymis is normal in size and appearance. HYDROCELE OR VARICOCELE: There is no significant right hydrocele but there is a varicocele. HERNIA OR EXTRA-TESTICULAR MASS: There is no evidence of extratesticular mass. OTHER: No other significant finding. LEFT: TESTICLE: The left testicle measures 2.9 cm x 1.8 cm by 2.3 cm. The left testicle is normal in echotexture and contour with no mass. There is normal blood flow. EPIDIDYMIS: The epididymis is normal in size and appearance. HYDROCELE OR VARICOCELE: There is no significant left hydrocele but there is a varicocele. HERNIA OR EXTRA-TESTICULAR MASS: There is no evidence of extratesticular mass. OTHER: No other significant finding. IMPRESSION: 1. The testes are normal bilaterally. No testicular mass is seen. Color flow Doppler images show normal blood flow to both testes. 2. Bilateral varicoceles. THIS IS AN ELECTRONICALLY VERIFIED FINAL REPORT 12/15/2024 2:58 PM - Electronically signed by Miah Gilman M.D. KT: ABBEY Report ID: [id number] Reading Location: [id number] Procedure Note Miah Gilman MD - 12/15/2024 EXAM DESCRIPTION: US SCROTUM REASON FOR STUDY: hesitancy of mictruition and right testicular pain for1 month. History of vasectomy. TECHNIQUE: Miranda scale imaging and color flow Doppler imaging of thescrotum and testes. COMPARISON: None FINDINGS: RIGHT: TESTICLE: The right testicle measures 2.4 cm x 2 cm x 1.9 cm. The right testicle is normal in echotexture and contour with no mass. There isnormal blood flow. EPIDIDYMIS: The epididymis is normal in size and appearance. HYDROCELE OR VARICOCELE: There is no significant right hydrocele butthere is a varicocele. HERNIA OR EXTRA-TESTICULAR MASS: There is no evidence of extratesticular mass. OTHER: No other significant finding. LEFT: TESTICLE: The left testicle measures 2.9 cm x 1.8 cm by 2.3 cm. Theleft testicle is normal in echotexture and contour with no mass. There isnormal blood flow. EPIDIDYMIS: The epididymis is normal in size and appearance. HYDROCELE OR VARICOCELE: There is no significant left hydrocele butthere is a varicocele. HERNIA OR EXTRA-TESTICULAR MASS: There is no evidence of extratesticular mass. OTHER: No other significant finding. IMPRESSION: 1. The testes are normal bilaterally. No testicular mass is seen. Colorflow Doppler images show normal blood flow to both testes. 2. Bilateral varicoceles. THIS IS AN ELECTRONICALLY VERIFIED FINAL REPORT 12/15/2024 2:58 PM - Electronically signed by Miah Gilman M.D. KT: KT Report ID: [id number] Reading Location: [id number] us Kwesi Elizabeth MD IMG US PROCEDURES Final Re sult * Pulmonary Function Test -[facility]; Pulse Ox with 6 Minute Walk (11/26/2024 12:57 PM CDT) Anatomical Region Laterality Modality PFT Narrative 11/26/2024 5:32 PM CDT The study is 6 minutes walk test which showed no exercise-induced hypoxemia, patient walked for 420 ft, the same is recommended. No previous data to compare, clinical correlation is recommended. Electronically signed, Lauren Eisenberg MD,[facility], [facility] Pulmonary, Critical Care and Sleep Medicine us Shamika Patel CAR PICK UP DRIVER PFT ORDERABLES Final Resul t * CT Lung Cancer Screening (11/26/2024 10:15 AM CDT) Anatomical Region Laterality Modality Chest N/A Computed Tomogra phy 12/05/2024 2:58 PM CDT Narrative 12/05/2024 3:10 PM CDT EXAM DESCRIPTION: CT LUNG CANCER SCREENING REASON FOR STUDY: Screening CT of the chest in a current smoker with a 88.5 pack year smoking history. Additional history: Additional history of lymphoma.. TECHNIQUE: Low dose CT scan of the chest was performed without intravenous contrast using helical scanning technique. The exam extends from the lung apices through the lung bases. Automatic exposure control was used as a dose optimization technique. NOTE: This study was performed for the specific purposes of lung cancer screening and is not an alternative to diagnostic chest CT. RADIATION DOSE: CT dose index volume (CTDIvol) = 1.47 mGy COMPARISON: Chest CT from an outside institution dated 08/24/2023 and 07/26/2020. Chest CT dated 06/12/2020. FINDINGS: SMOKING RELATED LUNG DISEASE: There is pulmonary emphysema. Bilateral bronchial wall thickening/bronchiectasis. Rotm-ppnswmh-wqrh-right bilateral peripheral reticular changes are again seen. LUNG NODULES: Lateral margin right upper lobe 3 mm nodule (series 2, image 155) in retrospect is similar when compared to the previous chest CT dated 08/24/2023. Calcified granulomas are again seen. CORONARY ARTERY CALCIFICATION: Present. OTHER: Small mediastinal lymph nodes are again seen. The evaluation for hilar adenopathy is limited without intravenous contrast. Right and left chest wall Lygxir-I-Ifgr. Calcified plaque in the thoracic aorta. The evaluation of the upper abdomen is limited on this low-dose unenhanced chest CT technique. Multilevel thoracic spine degenerative changes are again seen. IMPRESSION: 1. Pulmonary emphysema and pulmonary nodules as seen on the previous chest CT dated 08/24/2023. 2. Additional findings as above. Lung-RADS category 2: Benign appearance or behavior. Recommendation: Low dose Screening CT of chest in 12 months. THIS IS AN ELECTRONICALLY VERIFIED FINAL REPORT 12/05/2024 3:10 PM - Electronically signed by Dillan Porter D.O. AP: AP Report ID: [id number] Reading Location: [place] [id number] Procedure Note Dillan Porter, DO - 12/05/2024 EXAM DESCRIPTION: CT LUNG CANCER SCREENING REASON FOR STUDY: Screening CT of the chest in a current smoker with a 88.5 pack year smoking history. Additional history: Additional history of lymphoma.. TECHNIQUE: Low dose CT scan of the chest was performed without intravenous contrast using helical scanning technique. The exam extends from the lung apices through the lung bases. Automatic exposure control was used as adose optimization technique. NOTE: This study was performed for the specific purposes of lung cancer screening and is not an alternative to diagnostic chest CT. RADIATION DOSE: CT dose index volume (CTDIvol) = 1.47 mGy COMPARISON: Chest CT from an outside institution dated 08/24/2023 and 07/26/2020. Chest CT dated 06/12/2020. FINDINGS: SMOKING RELATED LUNG DISEASE: There is pulmonary emphysema. Bilateral bronchial wall thickening/bronchiectasis. Ayym-mmfodxr-cmbl-rightbilateral peripheral reticular changes are again seen. LUNG NODULES: Lateral margin right upper lobe 3 mm nodule (series 2,image 155) in retrospect is similar when compared to the previous chest CT dated 08/24/2023. Calcified granulomas are again seen. CORONARY ARTERY CALCIFICATION: Present. OTHER: Small mediastinal lymph nodes are again seen. The evaluation for hilar adenopathy is limited without intravenous contrast. Right and left chest wall Eddvsg-B-Lmbv. Calcified plaque in the thoracic aorta. The evaluation of the upper abdomen is limited on this low-dose unenhancedchest CT technique. Multilevel thoracic spine degenerative changes are againseen. IMPRESSION: 1. Pulmonary emphysema and pulmonary nodules as seen on the previouschest CT dated 08/24/2023. 2. Additional findings as above. Lung-RADS category 2: Benign appearance or behavior. Recommendation: Low dose Screening CT of chest in 12 months. THIS IS AN ELECTRONICALLY VERIFIED FINAL REPORT 12/05/2024 3:10 PM - Electronically signed by Dillan Porter D.O. AP: AP Report ID: [id number] Reading Location: [place] [address] Shamika Patel CAR PICK UP DRIVER IMG CT PROCEDURES Final Res ult * eGFR (10/29/2024 8:49 AM CDT) eGFR >90 >=60 mL/min/1. 73 m2 Comment: Interpretive Data Reference Interval Normal >/= 90 mL/min/1.73m2 Mildly decreased* 60 - 89 mL/min/1.73m2 Mildly to moderately decreased 45 - 59 mL/min/1.73m2 Moderately to severely decreased 30 - 44 mL/min/1.73m2 Severely decreased 15 - 29 mL/min/1.73m2 Kidney Failure < 15 mL/min/1.73m2 *Relative to young adult level Estimated glomerular filtration rate is determined by the 2020 CKD-EPI equation recommended by the National Kidney Foundation (A Unifying Approach to GFR Estimation: Recommendations of the NKF-ASK Task Force on Reassessing the Inclusion of Race in Diagnosing Kidney Disease, JASN 2020). The CKD-EPI equation should not be used for patients with unstable renal function and has not been validated in children and those over 70. Current interpretive data was last reviewed 2021. Blood 10/29/2024 8:49 AM CDT 10/29/2024 10:30 AM CDT us Shamika Patel CAR PICK UP DRIVER LAB BLOOD ORDERABLES Final Result [facility] ([place]) [facility] Department [place] [address] * Comprehensive metabolic panel (10/29/2024 8:49 AM CDT) Sodium 144 135 - 145 mmol/L Potassium, pl 4.2 3.3 - 4.9 mmol/L [facility] ([place]) Chloride 105 97 - 110 mmol/L [facility] CO2 26 22 - 32 mmol/L [facility] ([place]) Anion gap 13 2 - 15 mmol/L [facility] ([place]) BUN 12 6 - 25 mg/dL [facility] ([place]) Creatinine 0.84 0.80 - 1.30 mg/dL [facility] ([place]) Glucose 106 70 - 199 mg/dL [facility] ([place]) Comment: Interpretive Data Fasting glucose >/= 126 mg/dl is diagnostic for diabetes. Fasting is defined as no caloric intake for at least 8 hours. Fasting glucose between 100 mg/dl to 125 mg/dl is diagnostic of prediabetes. In a patient with classic symptoms of hyperglycemia or hyperglycemic crisis, a random glucose >/= 200 mg/dl is diagnostic for diabetes. In the absence of unequivocal hyperglycemia, results should be confirmed by repeat testing. The classification and Diagnosis of Diabetes Diabetes Care 2021; 46: S19-S40. Current interpretive data was last revised 2022. Calcium 9.2 8.5 - 10.3 mg/dL [facility] ([place]) Bilirubin, total 0.3 0.1 - 1.2 mg/dL [facility] ([place]) Protein, pl 6.5 6.5 - 8.5 g/dL [facility] ([place]) Albumin 4.5 3.5 - 5.0 g/dL [facility] ([place]) Alk phos 48 40 - 130 Units/L [facility] ([place]) ALT 23 7 - 55 Units/L [facility] ([place]) AST 27 10 - 50 Units/L [facility] ([place]) Blood 10/29/2024 8:49 AM CDT 10/29/2024 10:30 AM CDT us Shamika Patel CAR PICK UP DRIVER LAB BLOOD ORDERABLES Final Result [facility] ([place]) [facility] Department [place] [address] * COLONOSCOPY (10/19/2020 1:18 PM CDT) Anatomical Region Laterality Modality Other Narrative Procedure Note Sara Stevenson MD - 10/19/2020 1:[address] [facility] Patient Name: Kwesi Pham Procedure Date: 10/19/2020 1:18 PM Date of : 1955 Admit Type: Outpatient Age: 64 Gender: Male Attending MD: Sara Stevenson M.D. Room: [facility] 1 Note Status: Finalized Patient Profile: This is a 64 year old male. His father had colon cancer. Last colonoscopy more than 10 years ago. No specific GI complaint. Procedure: Colonoscopy Indications: Screening in patient at increased risk: Familyhistory of 1st-degree relative with colorectal cancer, Thisis the patient's first colonoscopy Referring MD: Den Denny M.D. Providers: Sara Stevenson M.D. Impression: - One 5 mm polyp in the ascending colon, removedwith a cold snare. Resected and retrieved. - Two 6 to 8 mm polyps in the transverse colon, removed with a cold snare. Resected andretrieved. - One 12 mm polyp in the descending colon, removed with a jumbo cold forceps. Resected andretrieved. - Three 3 to 4 mm polyps in the distal sigmoidcolon, removed with a jumbo cold forceps. Resected and retrieved. - Internal hemorrhoids. Recommendation: - Await pathology results. - Repeat colonoscopy in 3 - 5 years for screening purposes. - Continue present medications. Medicines: Monitored Anesthesia Care Complications: No immediate complications. Estimated Blood Loss: Estimated blood loss: none. Procedure: Pre-Anesthesia Assessment: - Prior to the procedure, a History and Physicalwas performed, and patient medications and allergieswere reviewed. The patient's tolerance of previous anesthesia was also reviewed. The risks andbenefits of the procedure and the sedation options and risks were discussed with the patient. All questions were answered, and informed consent was obtained. Prior Anticoagulants: The patient has taken no previous anticoagulant or antiplatelet agents. ASA Grade Assessment: II - A patient with mild systemicdisease. After reviewing the risks and benefits, the patient was deemed in satisfactory condition to undergo the procedure. The benefits, risks and alternatives of theprocedure and sedation were discussed and informed consentwas obtained. All questions were answered. Please referto the signed informed consent document in the medical record. The bowel preparation used was Miralax via split dose instruction. The bowel preparation usedwas bisacodyl tablets via split dose instruction. Bowel prep was administered using a split dose. The scope was passed under direct vision. The Pediatric Colonoscope PCF-H190L [id number] was introducedthrough the anus and advanced to the the cecum, identifiedby appendiceal orifice and ileocecal valve. Thequality of the bowel preparation was good. Findings: The perianal and digital rectal examinations were normal. The cecum appeared normal. A 5 mm polyp was found in the ascending colon. The polyp was sessile. The polyp was removed with a cold snare. Resection and retrieval were complete. Two sessile polyps were found in the transverse colon. The polypswere 6 to 8 mm in size. These polyps were removed with a cold snare.Resection and retrieval were complete. A 12 mm polyp was found in the descending colon. The polyp wassessile. The polyp was removed with a jumbo cold forceps. Resection andretrieval were complete. Three sessile polyps were found in the distal sigmoid colon. Thepolyps were 3 to 4 mm in size. These polyps were removed with a jumbo cold forceps. Resection and retrieval were complete. Internal hemorrhoids were found during retroflexion. The hemorrhoids were medium-sized. Electronically signed by Sara Stevenosn M.D. Sara Stevenson M.D. 10/19/2020 3:43:11 PM Number of Addenda: 0 Note Initiated On: 10/19/2020 1:18 PM Procedure Code(s): --- Professional --- 51889, Colonoscopy, flexible; with removal of tumor(s), polyp(s), or other lesion(s) by snare technique 43187, 59, Colonoscopy, flexible; with biopsy, single or multiple Diagnosis Code(s): --- Professional --- K63.5, Polyp of colon Z80.0, Family history of malignant neoplasm of digestive organs K64.8, Other hemorrhoids [facility] copyright 2019 [employer]. All rights reserved. The codes documented in this report are preliminary and upon software firmware engineer reviewmay be revised to meet current compliance requirements. Recognized by the [employer] for promoting quality in endoscopy Sara Stevenson MD ENDOSCOPY PROCEDURES Final Result * CT Abdomen Pelvis W Contrast (05/13/2015 3:23 AM DOCK WORKER) Anatomical Region Laterality Modality Body N/A Computed Tomogra phy 05/13/2015 3:23 AM DOCK WORKER Narrative 05/13/2015 7:48 PM DOCK WORKER CC: DR MIAH MART CT Abd/Pel W [id number] Acc#: [id number] DATE OF EXAM: May 13 2015 CLINICAL HISTORY: Upper abdominal pain. Elevated white count. Elevated amylase and lipase. History of Hodgkin's lymphoma. RESULT: Helical CT scan of the abdomen and pelvis obtained following intravenous and oral administration of contrast. 100 ml of Optiray 320. Images from the lung bases to the ischial tuberosities. The stomach is prominently distended with contrast. Liver appears fairly homogeneous. Diameter of the common bile duct and common hepatic duct are upper range of normal. Gallbladder appears unremarkable. Mild to moderate peripancreatic inflammatory changes and a small amount of fluid, particularly anterior pararenal space. 1st and 2nd portion of the duodenum demonstrate edema with distention. There is narrowing of the distal duodenum. Appendix thickness within the normal range, with no adjacent inflammation identified. Bilateral inguinal hernias containing only adipose tissue. Borderline thickening of the wall of the urinary bladder. The kidneys demonstrate no evidence of hydronephrosis. Parapelvic cyst left kidney measures 1.8 cm. Some calcification abdominal aorta and iliac arteries consistent with arteriosclerotic changes. Degenerative change lumbar spine and visualized portion of the lower thoracic spine, with spurring, degenerative disc disease particularly L4/4 and L5-S1. In the lung bases evidence of some minor emphysematous changes, along with some minimal atelectasis/scarring. Some of the inflammatory change discussed above near the pancreas extends into the anterior pararenal space and then inferiorly into the right pelviabdominal region. IMPRESSION: 1. PERIPANCREATIC INFLAMMATORY CHANGES AND SMALL AMOUNT OF FLUID. CONSISTENT WITH ACUTE PANCREATITIS. NO PSEUDO CYST EVIDENT. 2. DISTENDED STOMACH, WELL 1ST AND 2ND PORTION OF THE DUODENUM WITH NARROWING IN THE 3RD PORTION. EDEMA OF THE 1ST AND 2ND PORTION OF THE DUODENUM. FINDINGS LIKELY REPRESENT DUODENAL ILEUS SECONDARY TO ACUTE PANCREATITIS. REPORT BY [facility] 05/13/15 AT 3:35 AM Interpreting Physician: KHALIF JOINER M.D. Read on: May 13 2015 6:07A Transcribed by: [facility] On: May 13 2015 12:00P Approved Electronically by: KHALIF JOINER M.D. on: May 13 2015 7:48P Attending: SURINDER FERRERA Requesting: NERISSA ALBERTO Requesting Fax: -- Attending Fax: -- Attending ID: [id number] Requesting ID: [id number] Report To 1 ID: [id number] Report To 1 Name: SURINDER FERRERA Report To 1 FAX: -- NextGen Order #: Procedure Note Provider, MD Antonietta - 10/27/2016 CC: DR MIAH MART CT Abd/Pel W [id number] Acc#: [id number] DATE OF EXAM: May 13 2015 CLINICAL HISTORY: Upper abdominal pain. Elevated white count. Elevated amylase andlipase. History of Hodgkin's lymphoma. RESULT: Helical CT scan of the abdomen and pelvis obtained following intravenousand oral administration of contrast. 100 ml of Optiray 320. Images fromthe lung bases to the ischial tuberosities. The stomach is prominentlydistended with contrast. Liver appears fairly homogeneous. Diameter ofthe common bile duct and common hepatic duct are upper range of normal.Gallbladder appears unremarkable. Mild to moderate peripancreaticinflammatory changes and a small amount of fluid, particularly anteriorpararenal space. 1st and 2nd portion of the duodenum demonstrate edemawith distention. There is narrowing of the distal duodenum. Appendixthickness within the normal range, with no adjacent inflammationidentified. Bilateral inguinal hernias containing only adipose tissue.Borderline thickening of the wall of the urinary bladder. The kidneysdemonstrate no evidence of hydronephrosis. Parapelvic cyst left kidneymeasures 1.8 cm. Some calcification abdominal aorta and iliac arteries consistent with arteriosclerotic changes. Degenerative change lumbarspine and visualized portion of the lower thoracic spine, with spurring,degenerative disc disease particularly L4/4 and L5-S1. In the lung basesevidence of some minor emphysematous changes, along with some minimalatelectasis/scarring. Some of the inflammatory change discussed above nearthe pancreas extends into the anterior pararenal space and then inferiorlyinto the right pelviabdominal region. IMPRESSION: 1. PERIPANCREATIC INFLAMMATORY CHANGES AND SMALL AMOUNT OF FLUID.CONSISTENT WITH ACUTE PANCREATITIS. NO PSEUDO CYST EVIDENT. 2. DISTENDED STOMACH, WELL 1ST AND 2ND PORTION OF THE DUODENUM WITHNARROWING IN THE 3RD PORTION. EDEMA OF THE 1ST AND 2ND PORTION OF THEDUODENUM. FINDINGS LIKELY REPRESENT DUODENAL ILEUS SECONDARY TO ACUTEPANCREATITIS. REPORT BY [facility] 05/13/15 AT 3:35 AM Interpreting Physician: KHALIF JOINER M.D. Read on: May 13 2015 6:07A Transcribed by: taj On: May 13 2015 12:00P Approved Electronically by: KHALIF JOINER M.D. on: May 13 2015 7:48P Attending: SURINDER FERRERA Requesting: NERISSA ALBERTO Requesting Fax: -- Attending Fax: -- Attending ID: [id number] Requesting ID: [id number] Report To 1 ID: [id number] Report To 1 Name: SURINDER FERRERA Report To 1 FAX: -- NextGen Order #: us Historical Provider IMG CT PROCEDURES Final R esult from Last 3 Months or Most Recently Relevant to Health Maintenance Insurance [facility] MEDICARE MEDICARE Advance Directives For more information, please contact: [phone] * Full Code (Latest Code Status on File) Date Activated Date Inactivated Comments 07/19/2022 8:57 AM 07/19/2022 3:01 PM * Full Code Date Activated Date Inactivated Comments 07/19/2022 8:57 AM 07/19/2022 8:57 AM * Full Code Date Activated Date Inactivated Comments 10/19/2020 1:31 PM 10/19/2020 8:03 PM * Full Code Date Activated Date Inactivated Comments 10/19/2020 1:08 PM 10/19/2020 1:31 PM Care Teams Beauty School Instructor Relationship Specialty Start Date End Date Kwesi Elizabeth MD [address] [place] [address] [address] PCP - General Family Medicine 11/16/24 Nathan Cr MD Medical Oncologist/Production Planning Supervisor Hematology and Oncology 02/19/18
--- OUTSIDE RECORDS SUMMARY | 2025-01-29 14:00 | XMS_ITS | Clinical Summary ---
Author Organization [facility] Address [address] [place] [address] Care Team Providers Care Sales Specialist Name Role Phone Nathan Cr MD Unavailable [phone] Kwesi Elizabeth MD Primary Care Provider [phone] Allergies Active Allergy Reactions Criticality Noted Date [...] 2 (two) times a day 1 each 10/28/19 25 Active budesonide-formotero L (SYMBICORT) 160-4.5 mcg/actuation inhaler Inhale 2 puffs 2 (two) times a day Rinse mouth with water after use. Do not swallow. 1 each 10/28/19 25 Active Active Problems Problem Noted [...] use distraction techniques - Information given regarding [place] [employer]: [phone]-KYQM-YES for free services - 5 minutes spent [...] use distraction techniques - Information given regarding [place] [employer]: 3-710-OWCW-YES for free services - 5 minutes spent [...] (07/17/2022): Added automatically from request for surgery [id number] Hiatal hernia 07/17/2022 Overview (07/17/2022): Added automatically from request for surgery [id number] Chronic migraine without aur a without status migrainosus, not intractable 04/15/2021 History of colonic polyps 08/09/2020 Overview (08/09/2020): Added automatically from request for surgery [id number] Encounter for screening colonoscopy 08/09/2020 Overview (08/09/2020): Added automatically from request for surgery [id number] Hypogammaglobulinemia 02/20/2018 History of Hodgkin's lymphoma 01/28/2018 Cancer Staging:Clinical stage from 10/26/2000:Stage IV(Hodgkin lymphoma) - Signed by Nathan Cr MD on 02/25/2018 Sinusitis 02/11/2015 Skin lesions 12/22/2013 Encounters Date Type Department Care Team Description 12/04/2024 9:56 AM CDT - 12/04/2024 11:59 PM CDT Hospital Encounter [address] [address] Hesitancy of micturition Discharge Disposition: Discharge to home or self care 12/04/2024 9:56 AM CDT - 12/04/2024 11:59 PM CDT Hospital Encounter [address] [address] Hesitancy of micturition Discharge Disposition: Discharge to home or self care 11/26/2024 9:51 AM CDT - 11/26/2024 11:59 PM CDT Hospital Encounter [facility] Respiratory [address] [place] [id number] Centrilobular emphysema (HCC) Discharge Disposition: Discharge to home or self care 11/26/2024 9:50 AM CDT - 11/26/2024 11:59 PM CDT Hospital Encounter [address] [address] Cigarette nicotine dependence without complication Discharge Disposition: Discharge to home or self care 11/19/[address] [address] Shamika Pacheco RN 10/30/2024 Results Follow-Up [facility] Pulmonary at [address] [place] [address] Shamika Patel NP Comprehensive metabolic panel, eGFR, Pulmonary Function Test -[facility]; Pulse Ox with 6 Minute Walk, CT Lung Cancer Screening 10/29/2024 8:45 AM CDT Lab [address] Long-term use of high-risk medication from Last 3 Months Immunizations Immunization Administration Dates Next Due Influenza, Unspecified 04/27/2017 Pneumococcal Conjugate, Unspecified 04/27/2013 Surgical History Surgery Date Site/Laterality Comments 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 To treat Hodgkin's lymphoma COLONOSCOPY 07/02/2017 - 07/01/2018 ROTATOR CUFF REPAIR UPPER GASTROINTESTINAL ENDOSCOPY Medical History Medical History Date Comments COPD (chronic obstructive pulmonary disease) (HC C) Neuropathy Shoulder dislocation Left Hodgkin's lymphoma (HCC) Hypercholesteremia Colon polyp Migraine Headache, tension-type Hiatal hernia Cigarette nicotine dependence without complicati on 01/01/2024 Family History Medical History Relation Name Comments Alcohol abuse Brother Family history of alcoholism - (Added by TW Conv) Cancer Father Family history of malignant neoplasm - (Added by TW Conv) Colon cancer Father Heart disease Father Family history of cardiac disorder - (Added by TW Conv) Lung disease Father Family history of lung disease - (Added by TW Conv) Alcohol abuse Mother Family history of alcoholism - (Added by TW Conv) Lung disease Mother Family history of lung disease - (Added by TW Conv) Diabetes Sister Relation Name Status Comments Brother Father Mother Sister Social History Tobacco Use Types Packs/Day Years [...] on file Legal Sex Male 12:15 AM EMBEDDED NURSE Gender Identity Male 10/07/2020 2:35 PM CDT Sexual Orientation Not on file Obstetrics History Last Filed Vital Signs Vital Sign Reading [...] 11/26/2024 10:15 AM CDT Plan of Treatment Health Maintenance Due Date Last Done Comments Depression Screening 1955 Hepatitis C Screening 1955 Prostate Cancer Screening-PSA 1955 DTaP/Tdap/Td Vaccine (1 - Tdap) 12/10/1967 Hepatitis B Screening 1974 Zoster Vaccine (1 of 2) 12/10/1975 Pneumococcal vaccine 65+ (2 of 2 - PPSV23) 06/22/2013 04/27/2013 Abdominal Aortic Aneurysm (A AA) Screen 2021 05/13/2015 Well Visit 65+ 2021 Fall Risk Assessment 07/19/2023 07/19/2022 Covid-19 Vaccine (4 - 2023-2 5 season) 2024 03/21/2021, 01/19/2021, 12/22/2020 Influenza Vaccine (#1) 2025 , 04/02/2020, 08/14/2019, Additional history exists Lung Cancer Screening 11/27/2025 11/26/2024, 020 Colon Cancer Screening-Colonoscopy 10/19/2030 10/19/2020 Colon Cancer Screening-CT Colonography Discontinued 10/19/2020 Colon Cancer Screening-DNA Stool Discontinued 10/20/19 Colon Cancer Screening-FIT Discontinued 10/19/2020 Colon Cancer Screening-Sigmoidoscopy Discontinued 10/19/2020 Procedures Procedure Name Priority Date/Time Associated Diagnosis [...] PELVIS W CONTRAST Routine 05/13/2015 3:23 AM EMBEDDED NURSE from Last 3 Months or Most Recently Relevant to Health Maintenance Results * US Groin Mass Hernia Right (12/04/2024 3:59 PM CDT) Anatomical Region Laterality Modality Abdomen Right Ultrasound 12/17/2024 9:20 AM CDT Narrative 12/17/2024 9:22 AM CDT EXAM DESCRIPTION: US GROIN MASS HERNIA RIGHT REASON FOR STUDY: hesitancy of micturition TECHNIQUE: A Dynamic assessment was performed of the right groin by the overhead foreman, with selected grayscale and color Doppler images [...] by Elvis Casarez M.D. JR: Report ID: [id number] Reading Location: [id number] Procedure Note Elvis Casarez MD - 12/17/2024 EXAM DESCRIPTION: US GROIN MASS HERNIA RIGHT REASON FOR STUDY: hesitancy of micturition TECHNIQUE: A Dynamic assessment was performed of the right groin by the overhead foreman, with selected grayscale and color Doppler images [...] 9:22 AM - Electronically signed by Elvis Casarze M.D. JR: Report ID: [id number] Reading Location: [id number] us Kwesi Elizabeth MD IMG US PROCEDURES [...] Miah Gilman M.D. KT: ABBEY Report ID: [id number] Reading Location: [id number] Procedure Note Miah Gilman MD - 12/15/2024 [...] Miah Gilman M.D. KT: KT Report ID: [id number] Reading Location: [place] [address] us Kwesi Elizabeth MD IMG US PROCEDURES Final Re sult * Pulmonary Function Test -[facility]; Pulse Ox with 6 Minute Walk (11/26/2024 12:57 PM CDT) Anatomical Region Laterality Modality PFT Narrative 11/26/2024 5:32 PM CDT The study is 6 minutes walk test which showed no exercise-induced hypoxemia, patient walked for 420 ft, the same is recommended. No previous data to compare, clinical correlation is recommended. Electronically signed, Lauren Eisenberg MD,[facility], [facility] Pulmonary, Critical Care and Sleep Medicine us Shamika Patel AUTOMATION SALES MANAGER PFT ORDERABLES Final Resul t * CT [...] is pulmonary emphysema. Bilateral bronchial wall thickening/bronchiectasis. Fijq-xagwycm-bmfe-right bilateral peripheral reticular changes are again seen. [...] intravenous contrast. Right and left chest wall Jnkbqs-A-Plyh. Calcified plaque in the thoracic aorta. The [...] Dillan Porter D.O. AP: AP Report ID: [id number] Reading Location: [id number] Procedure Note Dillan Porter, DO - 12/05/2024 [...] is pulmonary emphysema. Bilateral bronchial wall thickening/bronchiectasis. Zdqh-qtiaydt-ewes-rightbilateral peripheral reticular changes are again seen. LUNG [...] intravenous contrast. Right and left chest wall Kwpnwb-B-Sckf. Calcified plaque in the thoracic aorta. The [...] Dillan Porter D.O. AP: AP Report ID: [id number] Reading Location: [place] [address] Shamika Patel AUTOMATION SALES MANAGER IMG CT PROCEDURES Final Res ult * [...] 10/29/2024 10:30 AM CDT us Shamika Patel AUTOMATION SALES MANAGER LAB BLOOD ORDERABLES Final Result [facility] [address] [facility] Department [place] [address] * Comprehensive metabolic panel (10/29/2024 8:49 AM CDT) Sodium 144 135 - 145 mmol/L Potassium, pl 4.2 3.3 - 4.9 mmol/L [facility] Chloride 105 97 - 110 mmol/L [facility] CO2 26 22 - 32 mmol/L [facility] Anion gap 13 2 - 15 mmol/L [facility] BUN 12 6 - 25 mg/dL [facility] Creatinine 0.84 0.80 - 1.30 mg/dL [facility] ([place] Glucose 106 70 - 199 mg/dL [facility] Comment: Interpretive Data Fasting glucose [...] 10/29/2024 10:30 AM CDT us Shamika Patel AUTOMATION SALES MANAGER LAB BLOOD ORDERABLES Final Result [facility] [address] [facility] Department [place] [address] * COLONOSCOPY (10/19/2020 1:18 PM CDT) Anatomical Region Laterality Modality Other Narrative Procedure Note Sara Stevenson MD - 10/19/2020 1:18 PM CDT [facility] Patient Name: Kwesi Pham Procedure Date: 10/19/2020 1:18 PM Date of : 1955 Admit Type: Outpatient Age: 64 Gender: Male Attending MD: Sara Stevenson M.D. Room: [facility] ENDOSCOPY ROOM 1 Note Status: Finalized [...] under direct vision. The Pediatric Colonoscope PCF-H190L [id number] was introducedthrough the anus and advanced to [...] hemorrhoids were medium-sized. Electronically signed by Sara Stevenson M.D. Sara Stevenson M.D. 10/19/2020 3:43:11 PM Number of Addenda: 0 Note Initiated On: 10/19/2020 1:18 PM Procedure Code(s): --- Professional --- 83955, Colonoscopy, flexible; with removal of tumor(s), polyp(s), or other lesion(s) by snare technique 11721, 59, Colonoscopy, flexible; with biopsy, single or multiple Diagnosis Code(s): --- Professional --- K63.5, Polyp of colon Z80.0, Family history of malignant neoplasm of digestive organs K64.8, Other hemorrhoids CPT copyright 2019 [employer] [employer]. All rights reserved. The codes documented in this report are preliminary and upon television agent reviewmay be revised to meet current compliance requirements. Recognized by the [place] [employer] for promoting quality in endoscopy Sara Stevenson MD ENDOSCOPY PROCEDURES Final Result * CT Abdomen Pelvis W Contrast (05/13/2015 3:23 AM EMBEDDED NURSE) Anatomical Region Laterality Modality Body N/A Computed Tomogra phy 05/13/2015 3:23 AM EMBEDDED NURSE Narrative 05/13/2015 7:48 PM EMBEDDED NURSE CC: DR MIAH MART CT Abd/Pel W [id number] Acc#: [id number] DATE OF EXAM: May 13 2015 CLINICAL [...] on: May 13 2015 6:07A Transcribed by: [facility] On: May 13 2015 12:00P Approved Electronically by: KHALIF JOINER M.D. on: May 13 2015 7:48P Attending: SURINDER FERRERA Requesting: NERISSA ALBERTO Requesting Fax: -- Attending Fax: -- Attending ID: [id number] Requesting ID: [id number] Report To 1 ID: [id number] Report To 1 Name: SURINDER FERRERA Report To 1 FAX: -- NextGen Order #: Procedure Note Provider, MD Antonietta - 10/27/2016 CC: DR MIAH MART CT Abd/Pel W [id number] Acc#: [id number] DATE OF EXAM: May 13 2015 CLINICAL [...] on: May 13 2015 6:07A Transcribed by: konrad On: May 13 2015 12:00P Approved Electronically by: KHALIF JOINER M.D. on: May 13 2015 7:48P Attending: SURINDER FERRERA Requesting: NERISSA ALBERTO Requesting Fax: -- Attending Fax: -- Attending ID: [id number] Requesting ID: [id number] Report To 1 ID: [id number] Report To 1 Name: SURINDER FERRERA Report To 1 FAX: -- NextGen Order #: us Historical Provider MD BANUELOS CT PROCEDURES Final R esult from Last 3 Months or Most Recently Relevant to Health Maintenance Insurance [facility] MEDICARE MEDICARE Advance Directives For more information, please contact: [phone] * Full Code (Latest Code Status on File) Date Activated Date Inactivated Comments 07/19/2022 8:57 AM 07/19/2022 3:01 PM * Full Code Date Activated Date Inactivated Comments 07/19/2022 8:57 AM 07/19/2022 8:57 AM * Full Code Date Activated Date Inactivated Comments 10/19/2020 1:31 PM 10/19/2020 8:03 PM * Full Code Date Activated Date Inactivated Comments 10/19/2020 1:08 PM 10/19/2020 1:31 PM Care Teams Sales Specialist Relationship Specialty Start Date End Date Kwesi Elizabeth MD [address] [facility] [address] [address] PCP - General Family Medicine 11/16/24 Nathan Cr MD Medical Oncologist/Manager Division Hematology and Oncology 02/19/18
--- OUTSIDE RECORDS SUMMARY | 2025-01-29 14:00 | XMS_ITS | Clinical Summary ---
Author Organization [facility] Address [address], [facility] [address] [place] [address] Phone Care Team Providers Care Boat Designer Name Role Phone Miah Abebe MD Primary Care Provider Jaylan Zambrano DO Unavailable [phone] Allergies No known active allergies Medications lansoprazole [...] Virus (HCV) Screening 1955 TdaP Immunization 1956 Cologuard 2001 Colonoscopy 2001 Colorectal Cancer Screening 2001 Immunochemical Fecal Occult Blood 2001 Pneumococcal Immunization (5 0+ years) (1 of 1 - PCV) 2006 Zoster Immunization (1 of 2) 2006 SARS-COV-2 Immunization ( - 2023- season) 2024 03/21/2021, 01/19/2021, 12/22/2020 Influenza Immunization (#1) 2025 Respiratory Syncytial Virus (RSV) Immunization (Adult) (1 - 1-dose 75+ series) 12/10/2031 Hepatitis B Immunization Aged Out No longer eligible based on patient's age to complete this topic Human Papillomavirus (HPV) Immunization Aged Out No longer eligible b ased on patient's age to complete this topic Meningococcal Immunization (ACWY) Aged Out No longer eligible b ased on patient's age to complete this topic Rotavirus Immunization Aged Out No lo nger eligible based on patient's age to complete this topic Care Teams Boat Designer Relationship Specialty Start Date End Date Miah Abebe MD PCP - General Internal Medicine 05/13/15 Jaylan Zambrano DO Gastroenterology 05/26/15
== END 2025-01-29 13:55 | disposition home or self-care (01) ==
PROVIDERS: PCP Internal Medicine; Visit Provider Internal Medicine Hematology & Oncology
DX: T82.594A Other mechanical complication of infusion catheter, initial encounter (principal); C81.96 Hodgkin lymphoma, unspecified, intrapelvic lymph nodes
CPT/HCPCS: 36598; Q9966